=== PATIENT | male | born 1950 | race Caucasian/White ===

== ENCOUNTER 2017-12-08 11:14 | Outpatient (REF) | payer MEDICARE, SELFPAY ==
[2017-12-08 14:25] LABS: Hemoglobin A1C 10.3 % (4.5-6.2)
[2017-12-08 14:39] LABS: ALT 43 U/L (12-78); AST 19 U/L (15-37); Albumin 4.1 g/dL (3.4-5.0); Alkaline Phosphatase 66 U/L (46-116); Anion Gap 9.2 mmol/L (3-11); BUN 28 mg/dL (7-18); Bilirubin, Total 0.5 mg/dL (0.2-1.0); CO2 26.8 mmol/L (21.0-32.0); CREATININE 1.56 mg/dL (0.70-1.30); Chloride 104 mmol/L (98-107); Cholesterol 195 mg/dL (50-200); Estimated GFR 44.75 (mL/min/1.73m2); Glucose 242 mg/dL (70-100); HDL Cholesterol 48 mg/dL (40-60); LDL CHOLESTEROL 118 mg/dL (<100); Potassium 4.3 mmol/L (3.5-5.1); Sodium 140 mmol/L (136-145); Total Protein 7.4 g/dL (6.4-8.2); Triglyceride 205 mg/dL (30-150)
== END 2017-12-08 11:34 ==
LOC: NCHCN 11:14
PROVIDERS: PCP Family Medicine; Visit Provider Family Medicine
DX: E11.9 Type 2 diabetes mellitus without complications (principal); I10 Essential (primary) hypertension; E66.9 Obesity, unspecified
CPT/HCPCS: 80053; 80061; 83721; 83036

== ENCOUNTER 2018-01-19 11:45 | Outpatient (REF) | payer MEDICARE, SELFPAY ==
--- NOTE | 2018-01-19 10:15 | SKI_PTH ---
PATIENT: Avery Penny LOC: [facility] U#:[id number] AGE/SX: 67/M ROOM: RE01/19/[address]: Priscilla Robert : 1950 BED: DIS: 01/19/2018 SPEC #: [id number] RECD: 01/20/18 12:33 STATUS: YULI RENickie #: [id number] FREDI: 01/19/18 10:[address]: Priscilla Robert DEPT: Surgical Specimen RECD BY: Malia Frye Tissues: 1 - SKIN BIOPSY(SHAVE/PUNCH) Procedures: SKIN LEVEL 4 Comments: [id number]
== END 2018-01-19 12:05 ==
LOC: NCHCN 11:45
PROVIDERS: PCP Family Medicine; Visit Provider Family Medicine
DX: D23.5 Other benign neoplasm of skin of trunk (principal)
CPT/HCPCS: 88305

== ENCOUNTER 2020-06-13 08:35 | Outpatient (REF) | payer MEDICARE, SELFPAY ==
[2020-06-13 13:49] LABS: ALT 48 U/L (16-63); AST 22 U/L (15-37); Albumin 3.8 g/dL (3.4-5.0); Alkaline Phosphatase 73 U/L (46-116); Anion Gap 11.8 mmol/L (3-11); BUN 33 mg/dL (7-18); Bilirubin, Total 0.7 mg/dL (0.2-1.0); CO2 23.2 mmol/L (21.0-32.0); CREATININE 2.5 mg/dL (0.70-1.30); Calculated LDL 79 mg/dL (<100); Chloride 108 mmol/L (98-107); Cholesterol 138 mg/dL (<200); Estimated GFR 25.81 (mL/min/1.73m2); Glucose 145 mg/dL (74-106); HDL Cholesterol 46 mg/dL (40-60); Potassium 4.7 mmol/L (3.5-5.1); Sodium 143 mmol/L (136-145); Total Protein 7.2 g/dL (6.4-8.2); Triglyceride 66 mg/dL (<150)
[2020-06-13 14:19] LABS: Hemoglobin A1C 7.2 % (<5.7)
[2020-06-13 21:50] LABS: PSA, Screening 3.8 ng/mL (0.0-4.5)
== END 2020-06-13 08:36 | disposition home or self-care (01) ==
LOC: NCHCN 08:35
PROVIDERS: PCP Family Medicine; Visit Provider Family Medicine
DX: E78.5 Hyperlipidemia, unspecified (principal); I10 Essential (primary) hypertension; E11.9 Type 2 diabetes mellitus without complications; Z12.5 Encounter for screening for malignant neoplasm of prostate
CPT/HCPCS: 80053; 80061; 84153; 83036

== ENCOUNTER 2020-07-26 08:17 | Outpatient (REF) | payer MEDICARE, SELFPAY ==
[2020-07-26 13:39] LABS: Anion Gap 9.6 mmol/L (3-11); BUN 36 mg/dL (7-18); CO2 27.4 mmol/L (21.0-32.0); CREATININE 2.4 mg/dL (0.70-1.30); Calcium 8.8 mg/dL (8.5-10.1); Chloride 107 mmol/L (98-107); Estimated GFR 26.98 (mL/min/1.73m2); Glucose 144 mg/dL (74-106); Potassium 4.9 mmol/L (3.5-5.1); Sodium 144 mmol/L (136-145)
== END 2020-07-26 08:18 | disposition home or self-care (01) ==
LOC: NCHCN 08:17
PROVIDERS: PCP Family Medicine; Visit Provider Family Medicine
DX: I10 Essential (primary) hypertension (principal); N18.9 Chronic kidney disease, unspecified
CPT/HCPCS: 80048

== ENCOUNTER 2020-09-13 16:30 | Outpatient (REF) | payer MEDICARE, SELFPAY ==
[2020-09-13 14:17] LABS: Anion Gap 11.8 mmol/L (3-11); BUN 41 mg/dL (7-18); CO2 24.2 mmol/L (21.0-32.0); CREATININE 2.6 mg/dL (0.70-1.30); Calcium 9.2 mg/dL (8.5-10.1); Chloride 107 mmol/L (98-107); Glucose 179 mg/dL (74-106); PHOSPHORUS 3.3 mg/dL (2.6-4.7); Potassium 5.4 mmol/L (3.5-5.1); Sodium 143 mmol/L (136-145)
[2020-09-13 14:54] LABS: PROTEIN 50.6 mg/dL
[2020-09-13 14:56] LABS: COMMENT (LAB VIEW ONLY) 25.37 mg/dL; Prot/Crea Ur Ratio 1.99
[2020-09-16 09:34] LABS: Parathyroid Hormone,Intact 98 pg/mL (19-88)
== END 2020-09-13 16:31 | disposition home or self-care (01) ==
LOC: NCHCN 16:30
PROVIDERS: PCP Family Medicine; Visit Provider Family Medicine
DX: N18.9 Chronic kidney disease, unspecified (principal); I10 Essential (primary) hypertension
CPT/HCPCS: 80048; 82565; 83970; 84100; 84156

== ENCOUNTER 2021-08-20 10:43 | Outpatient (REF) | payer MEDICARE, BC, SELFPAY ==
[2021-08-20 14:36] LABS: HCT 35.1 % (40.0-50.0); HGB 11.2 g/dL (13.5-17.5); MCH 28.7 pg (27.0-33.0); MCHC 31.9 % (32.0-36.0); MCV 90 fL (80-95); MPV 11.2 fL (8.0-11.0); Platelet Count 167 10^3/uL (130-400); RDW 13.5 % (11.8-14.1); RDW-SD 44.6 fL
[2021-08-20 14:50] LABS: ALT 33 U/L (16-63); AST 16 U/L (15-37); Albumin 4.4 g/dL (3.4-5.0); Alkaline Phosphatase 77 U/L (46-116); Anion Gap 11.4 mmol/L (3-11); BUN 40 mg/dL (7-18); Bilirubin, Total 0.5 mg/dL (0.2-1.0); CO2 24.6 mmol/L (21.0-32.0); CREATININE 3.4 mg/dL (0.70-1.30); Calculated LDL 122 mg/dL (<100); Chloride 107 mmol/L (98-107); Cholesterol 198 mg/dL (<200); Glucose 179 mg/dL (74-106); HDL Cholesterol 42 mg/dL (40-60); Potassium 5.4 mmol/L (3.5-5.1); Sodium 143 mmol/L (136-145); Total Protein 7.7 g/dL (6.4-8.2); Triglyceride 171 mg/dL (<150)
[2021-08-20 14:56] LABS: Hemoglobin A1C 7.7 % (<5.7)
[2021-08-21 15:09] LABS: Vitamin D 25 Total 41.5 ng/mL (30-100)
== END 2021-08-20 10:44 | disposition home or self-care (01) ==
LOC: NCHCN 10:43
PROVIDERS: PCP Family Medicine; Visit Provider Family Medicine
DX: E11.9 Type 2 diabetes mellitus without complications (principal); N18.9 Chronic kidney disease, unspecified; I10 Essential (primary) hypertension; E66.8 Other obesity
CPT/HCPCS: 80053; 80061; 82306; 85027; 83036

== ENCOUNTER 2021-10-14 08:37 | Outpatient (REF) | payer MEDICARE, BC, SELFPAY ==
--- OUTSIDE RECORDS SUMMARY | 2021-10-14 08:47 | XMS_ITS | Encounter Summary ---
:1950 Author Organization [facility] Address [address] [place] [id number] Care Team Providers Name Role Phone Priscilla Robert MD Primary Care Provider Reason for Visit Reason Onset Date Comments Labs Only 07/30/2020 appointment Encounter Details Date Type Department Care Team Description 07/30/2020 Telephone [facility] Callie Mcclure La bs Only Nephrology - S RN (appointment) [place] [address] Social History Tobacco Use Types Packs/Day Years Used Date Never Smoker Smokeless Tobacco: Never Used Alcohol Use Standard Drinks/Week Comments No 0 (1 standard drink = 0.6 oz pure alcoho l) Sex Assigned at Date Recorded Not on file documented as of this encounter Functional Status Functional Status Response Date of Assessment Are you deaf or do you have serious difficulty hearing? No 12/07/2019 Are you blind or do you have serious difficulty seeing, No 12/07/2019 even when wearing glasses? Do you have serious difficulty walking or climbing No 12/07/2019 stairs? (5 years old or older) Do you have difficulty dressing or bathing? (5 years old No 12/07/2019 or older) Because of a physical, mental, or emotional condition, do No 12/07/2019 you have difficulty doing errands alone such as visiting a doctor's office or shopping? (15 years old or older) Cognitive Status Response Date of Assessment Because of a physical, mental, or emotional condition, do No 12/07/2019 you have serious difficulty concentrating, remembering, or making decisions? (5 years old or older) documented as of this encounter Miscellaneous Notes Telephone Encounter - June Bell RN - 07/30/2020 1042 EDT LMOM detailed on both home and cell phones, to get labs drawn. To call back will any questions elephone Encounter - Callie Mcclure RN - 07/30/2020 0843 EDT ----- Message from Lacy Miller MD sent at 07/30/2020 7:53 EDT ----- Worsening renal failure. A repeat BMP has been ordered - he is to complete this as soon as possible. He is yet to be seen by Nephrology. Mac documented in this encounter Plan of Treatment Upcoming Encounters Date Type Specialty Care Team Description 10/27/2021 Telemedicine Nephrology Rebekah Miller MD 1 [facility], Level 2 [place], [place] [phone] (Wo rk) documented as of this encounter Visit Diagnoses Not on filedocumented in this encounter Care Teams Specialty Molder Relationship Specialty Start Date End Date Priscilla Robert MD PCP - General 11/30/[address] [place] [phone] documented as of this encounter
--- OUTSIDE RECORDS SUMMARY | 2021-10-14 08:47 | XMS_ITS | Encounter Summary ---
:1950 Author Organization [facility] Address [address] [place] [address] Care Team Providers Name Role Phone Priscilla Robert MD Primary Care Provider Reason for Visit Reason Onset Date Comments Other 08/27/2021 Encounter Details Date Type Department Care Team Description 08/27/2021 Telephone [facility] Kristina Miller MD Other Nephrology - S Prosp ect [address], [address] [place], [place] [phone] [place] [phone] (Wo rk) Social History Tobacco Use Types Packs/Day Years [...] this encounter Miscellaneous Notes Telephone Encounter - Callie Mcclure RN - 08/28/2021 1307 EDT It would appear that he had a missed appointment in February 2021. Infrequent lab testing as observed in the EMR - Creatinine was 2.5 in May 2020 and had jumped to 3.4 on 08/21/2021. It was 1.6 in November 2017. This is consistent with progressive CKD. He is listed on Lisinopril 20 mg/d. Recommendation - book to see me this month on a Wednesday or am slot. Thank you. Bautista Miller elephone Encounter - Dania Forte RN - 08/27/2021 1338 EDT Message routed to Dr. Miller for review and advice. elephone Encounter - Harriet De Leon - 08/27/2021 1329 EDT Avery was told by his PCP that his kidney function is declining, was told to be in touch with our office about a f/u with Dr. Miller - next available appointment is mid-November, please advise? Sees Dr. Robert at [facility]. [phone] - I called for records. documented in this encounter Plan of Treatment Upcoming Encounters Date Type Specialty Care Team Description 10/27/2021 Telemedicine Nephrology Rebekah Miller MD 1 [facility], Level 2 [place], [place] [phone] (Wo rk) documented as of this encounter Visit Diagnoses Not on filedocumented in this encounter Additional Health Concerns Infection Onset Date Last Indicated Resolved Time MRSAComment: [facility] Inf Import 01/30/2021 01/30/2021 documented as of this encounter Care Teams Buggy Ladle Tender Relationship Specialty Start Date End Date Priscilla Robert MD PCP - General 11/30/19 [place] [phone] documented as of this encounter
--- OUTSIDE RECORDS SUMMARY | 2021-10-14 08:47 | XMS_ITS | Encounter Summary ---
:1950 Author Organization [facility] Address [address] [place] [address] Care Team Providers Name Role Phone Priscilla Robert MD Primary Care Provider Reason for Referral Laboratory Services (Routine/Next Available) - New Request Specialty Diagnoses / Procedures Referred By Contact Refer red To Contact Diagnoses Benign prostatic hyperplasia with urinary frequency Nacho Barrow MD Procedures PSA TOTAL, DIAGNOSTIC [address] [facility] [address] [place] [address] Referral ID Status Reason Start Date Expiration Date Visits V isits Requested Authorized [id number] New Request 04/29/2021 1 1 Reason for Visit Reason Onset Date Comments Pre-visit Orders 04/29/2021 Encounter Details Date Type Department Care Team Description 04/29/2021 Orders Only [facility] Nacho Barrow prostatic Urology - Mikhail Davalos MD hyperplasia with Office Building [address] [place] urinary [facility] [address] [facility] (Primary Dx) [address] [place], [place] [phone] [place] [address] [place] [address] (Wo rk) Social History Tobacco Use Types [...] or older) documented as of this encounter Plan of Treatment Upcoming Encounters Date Type Specialty Care Team Description 10/27/2021 Telemedicine Nephrology Rebekah Miller MD 1 [facility], Level 2 [place], [place] [phone] (Wo rk) Scheduled Orders Name Type Priority Associated Diagnoses Order S chedule PSA TOTAL, DIAGNOSTIC Lab Routine Benign prostatic Ex pected: 04/30/2021 hyperplasia with urinary (Ap proximate), Expires: frequency 04/29/2022 documented as of this encounter Visit Diagnoses Diagnosis Benign prostatic hyperplasia with urinar y frequency - Primary documented in this encounter Additional Health Concerns Infection Onset Date Last Indicated Resolved Time MRSAComment: [facility] [place] Import 01/30/2021 01/30/2021 documented as of this encounter Care Teams Assignment Manager Relationship Specialty Start Date End Date Priscilla Robert MD PCP - General 11/30/19 [address] [place] [phone] documented as of this encounter
--- OUTSIDE RECORDS SUMMARY | 2021-10-14 08:47 | XMS_ITS | Encounter Summary ---
:1950 Author Organization [facility] Address [address] [place] [address] Care Team Providers Name Role Phone Priscilla Robert MD Primary Care Provider Reason for Visit Reason Onset Date Comments Follow-up 08/28/2021 Encounter Details Date Type Department Care Team Description 08/28/2021 Telephone [facility] Kristina Miller MD Follow-up Nephrology - S Prosp ect [address], [address] [place], [place] [phone] [place] [phone] (Wo rk) Social History Tobacco Use [...] this encounter Miscellaneous Notes Telephone Encounter - Lacy Miller MD - 08/28/2021 1250 EDT It would appear that he had [...] month on a Wednesday or am slot. documented in this encounter Plan of Treatment Upcoming Encounters Date Type Specialty Care Team Description 10/27/2021 Telemedicine Nephrology Rebekah Miller MD 1 [facility], Level [address] [place], [place] [phone] (Wo rk) documented as of this encounter Visit Diagnoses Not on filedocumented in this encounter Additional Health Concerns Infection Onset Date Last Indicated Resolved Time MRSAComment: [facility] Inf Import 01/30/2021 01/30/2021 documented as of this encounter Care Teams Car Carder Relationship Specialty Start Date End Date Priscilla Robert MD PCP - General 11/30/19 [address] [place] [address] documented as of this encounter
--- OUTSIDE RECORDS SUMMARY | 2021-10-14 08:47 | XMS_ITS | Encounter Summary ---
:1950 Author Organization [facility] Address [address] [place] [address] Care Team Providers Name Role Phone Priscilla Robert MD Primary Care Provider Reason for Visit Reason Comments Follow-up 1 year PSA Encounter Details Date Type Department Care Team Description 05/20/2021 Office Visit [facility] Nacho Barrow prostatic hyperplasia with urinary frequency (Primary Dx); Urology - Medical MD Anoop Erectile dysfunction, unspecified erecti le dysfunction type; Office Building [address] [place] [address] Special screening for malign ant neoplasm of prostate [address] [facility] [place] [address] [facility], [place], [place] [address] [place] [address], [place] [address] (Wo rk) Social History Tobacco Use Types Packs/Day Years Used Date Never Smoker Smokeless Tobacco: Never Used Tobacco Cessation: Counseling Given: Yes Alcohol Use Standard Drinks/Week Comments No 0 [...] or older) documented as of this encounter Ordered Prescriptions Prescription Sig Dispensed Refills Start Date End Date sildenafil citrate Take 1 Tablet by 30 Tablet 11 05/20/2021 (VIAGRA) 100 mg tablet mouth as needed for Erectile Dysfunction. TAMSulosin (FLOMAX) 0.4 Take 1 capsule by 90 capsule 5 05/20 mg capsule mouth daily. documented in this encounter Progress Notes Nacho Barrow MD - 05/20/2021 1000 EST Images from the original note were not included. Subjective: Patient ID: Avery Padilla is an [address] Priscilla Robert has requested that I see Avery Padilla in consultation for Follow-up (1 yearPSA). HPI He is here today 15 months following his penile implant. He has had his third revision with a 24plus a 0.5 cm implant . This has been effective . He has been quite effective. He has had no issues. He has BPH and the Flomax is effective. He has an AUA ss of 2/35. Patient Active Problem List Diagnosis ??? Erectile dysfunction Past Medical History: Diagnosis Date ??? Diabetes mellitus (HCC) 11/17/19 on oral meds ??? Exercise involving walking ??? History of general anesthesia 11/16/19 no issues ??? Hypertension 11/17/19 Treated with meds, good results ??? Patient unable to exercise 11/17/19 walks less due to COVID Past Surgical History: Procedure Laterality Date ??? OTHER SURGICAL HISTORY 2002, 2008 IPP Insertion No family history on file. Social Social History Tobacco Use ??? Smoking status: Never Smoker ??? Smokeless tobacco: Never Used Substance Use Topics ??? Alcohol use: No ??? Drug use: Not on file Current Outpatient Medications on File Prior to Visit Medication Sig Dispense Refill ??? acetaminophen (TYLENOL) 325 mg tablet Take 2 Tabs by mouth every 4 hours as needed for Pain. ??? amlodipine (NORVASC) 5 mg tablet Take 10 mg by mouth daily. Reported on 07/06/2016 ??? aspirin chewable 81 mg tablet Take 1 Tab by mouth daily. Takes in am 1 Tab 0 ??? atorvastatin (LIPITOR) 10 mg tablet Take 10 mg by mouth daily. ??? clotrimazole-betamethasone (LOTRISONE) cream Apply to affected area twice daily as needed. (Patient not taking: Reported on 12/07/2019) 1 Tube 0 ??? docusate sodium (COLACE) 100 mg capsule Take 1 Cap by mouth 2 times daily as needed for Constipation. ??? glipiZIDE (GLUCOTROL) 10 mg tablet Take 10 mg by mouth daily. ??? metFORMIN (GLUCOPHAGE) 1,000 mg tablet Take 1,000 mg by mouth 2 times daily. ??? metoprolol TARtrate (LOPRESSOR) 25 mg tablet Take 25 mg by mouth 2 times daily. ??? sildenafil citrate (VIAGRA) 100 mg tablet Take 1 Tab by mouth as needed for Erectile Dysfunction. 30 Tab 11 ??? SITagliptin (JANUVIA) 100 mg tablet Take 25 mg by mouth daily. Take in am ??? TAMSulosin (FLOMAX) 0.4 mg capsule TAKE ONE CAPSULE BY MOUTH EVERY DAY 90 capsule 3 No current facility-administered medications on file prior to visit. Allergies Allergen Reactions ??? Demerol [Meperidine] Nausea And Vomiting ROS - Constitutional: Negative. Respiratory: Negative. Cardiovascular: Negative. Objective: There were no vitals taken for this visit. Physical Exam Constitutional: Appearance: He is well-developed. HENT: Head: Normocephalic and atraumatic. Right Ear: External ear normal. Left Ear: External ear normal. Nose: Nose normal. Neck: Trachea: No tracheal deviation. Pulmonary: Effort: Pulmonary effort is normal. Abdominal: Palpations: Abdomen is soft. Genitourinary: Penis: Normal. Skin: General: Skin is warm and dry. Neurological: Mental Status: He is alert and oriented to person, place, and time. Psychiatric: Behavior: Behavior normal. Thought Content: Thought content normal. : nml tone , 40 gram benign No visits with results within 1 Day(s) from this visit. Latest known visit with results is: Lab Requisition on 09/13/2020 Component Date Value Ref Range Status ??? Intact PTH 09/13/2020 98 (A) 19 - 88 pg/mL Final PSA: Lab Results Component Value Date PSA 3.8 06/13/2020 PSA 1.8 02/15/2013 PSA Henny Roman : 05/20 : 2.6 BMP: Lab Results Component Value Date NA 139 12/08/2019 K 4.4 12/08/2019 CL 103 12/08/2019 CO2 24 12/08/2019 BUN 38 (H) 12/08/2019 CREATININE 2.15 (H) 12/08/2019 Assessment / Plan: 1. Benign prostatic hyperplasia with urinary frequency 2. Erectile dysfunction, unspecified erectile dysfunction type He has done well with the implant. He will be seen once a year . He will continue the Flomax . F/U PSA in 1 year . No orders of the defined types were placed in this encounter. Nacho Barrow MD documented in this encounter Plan of Treatment Upcoming Encounters Date Type Specialty Care Team Description 10/27/2021 Telemedicine Nephrology Rebekah Miller MD 1 [facility], Level [address] [place], [place] [phone] (Wo rk) Scheduled Orders Name Type Priority Associated Diagnoses Order S chedule PSA TOTAL, DIAGNOSTIC Lab Routine Special screening f or Expected: 06/18/2022 malignant neoplasm of (Appro ximate), Expires: prostate 05/20/2023 documented as of this encounter Visit Diagnoses Diagnosis Benign prostatic hyperplasia with urinar y frequency - Primary Erectile dysfunction, unspecified erecti le dysfunction type Special screening for malignant neoplasm of prostate documented in this encounter Discontinued Medications Medication Sig Discontinue Reason Start Date End Date TAMSulosin (FLOMAX) 0.4 TAKE ONE CAPSULE BY Reorder 10/04/2020 05/20/2021 mg capsule MOUTH EVERY DAY sildenafil citrate Take 1 Tab by mouth Reorder 10/24/2019 (VIAGRA) 100 mg tablet as needed for Erectile Dysfunction. documented as of this encounter Additional Health Concerns Infection Onset Date Last Indicated Resolved Time MRSAComment: [facility] Inf Import 01/30/2021 01/30/2021 documented as of this encounter Care Teams Train Crew Member Relationship Specialty Start Date End Date Priscilla Robert MD PCP - General 11/30/19 [place] [address] documented as of this encounter
--- OUTSIDE RECORDS SUMMARY | 2021-10-14 08:47 | XMS_ITS | Encounter Summary ---
:1950 Author Organization [facility] Address [address] [place] [address] Care Team Providers Name Role Phone Priscilla Robert MD Primary Care Provider Reason for Visit Reason Onset Date Comments Medications Refill 09/03/2020 Encounter Details Date Type Department Care Team Description 09/03/2020 Refill [facility] Kristina Miller MD Medications Refill Nephrology - S Prosp ect 1 [facility] 1 [facility], Level 2 [place], [place] [address] [place] [address] [phone] (Wo rk) Social History Tobacco Use [...] 10/27/2021 Telemedicine Nephrology Rebekah Miller MD 1 [facility], Level [address] [place], [place] [phone] (Wo rk) documented as of this encounter Visit Diagnoses Not on filedocumented in this encounter Care Teams Resource Director Relationship Specialty Start Date End Date Priscilla Robert MD PCP - General 11/30/[address] [place] [phone] documented as of this encounter
--- OUTSIDE RECORDS SUMMARY | 2021-10-14 08:47 | XMS_ITS | Encounter Summary ---
:1950 Author Organization [facility] Address [address] [place] [address] Care Team Providers Name Role Phone Priscilla Robert MD Primary Care Provider Reason for Visit Reason Onset Date Comments Appointment Related 03/21/2021 Encounter Details Date Type Department Care Team Description 03/21/2021 Telephone [facility] Kristina Miller MD Appointment Related Nephrology - S Prosp ect 1 [facility] 1 [place] [address] Rehab, [place] [address] (Wo rk) Social History Tobacco Use [...] this encounter Miscellaneous Notes Telephone Encounter - Dayan Oliver - 03/21/2021 1122 EST PAS Message: patient called to cancel appointment with Lacy Miller MD on 03/24 at 10:40 due to no reason given. Patient would like a call back to reschedule? He'll call documented in this encounter Plan of Treatment Upcoming Encounters Date Type Specialty Care Team Description 10/27/2021 Telemedicine Nephrology Rebekah Miller MD 1 [facility], Level [address] [place], [place] [phone] (Wo rk) documented as of this encounter Visit Diagnoses Not on filedocumented in this encounter Additional Health Concerns Infection Onset Date Last Indicated Resolved Time MRSAComment: [facility] [place] Inf Import 01/30/2021 01/30/2021 documented as of this encounter Care Teams Feed House Supervisor Relationship Specialty Start Date End Date Priscilla Robert MD PCP - General 11/30/19 [address] [place] [address] documented as of this encounter
--- OUTSIDE RECORDS SUMMARY | 2021-10-14 08:47 | XMS_ITS | Encounter Summary ---
:1950 Author Organization [facility] Address [address] [place] [address] Care Team Providers Name Role Phone Priscilla Robert MD Primary Care Provider Reason for Visit Reason Comments Chronic Kidney Disease CKD - New patient visit for CKD against a background for DM II and HTN, morbid obesity (268 lb) with BMI of 36) and listed on Januvia, Tamsulosin and Amlo dipine. Creatinine was 2.5 mg/dL (eGFR=25.81) from 06/13/2020. Hypertension Diabetes Mellitus Consult (Routine) - Authorization Not Required Specialty Diagnoses / Procedures Referred By Contact Refer red To Contact Nephrology Diagnoses Chronic kidney disease, unspecified Priscilla Robert MD Nephrology Clinic [address] [place] [phone] [place] [address] Fax: Referral ID Status Reason Start Expiration Visits Visits Date Date Requested Authorized [id number] Authorization Not 1 1 Required Encounter Details Date Type Department Care Team Description 09/02/2020 Telemedicine [facility] Lacy Miller, CKD (chronic kidney Nephrology - S MD disease), stage IV [address] ([facility]) (Primary 1 [facility] Dx) [place] [address] Rehab, [place] [phone] (Wo rk) Social History Tobacco Use Types Packs/Day Years Used Date Never Smoker Smokeless Tobacco: Never Used Alcohol Use Standard Drinks/Week Comments No 0 (1 standard drink = 0.6 oz pure alcoho l) Sex Assigned at Date Recorded Not on file documented as of this encounter Last Filed Vital Signs Vital Sign Reading Time Taken Comments Blood Pressure 145/84 09/02/2020 1113 EDT Pulse - - Temperature - - Respiratory Rate - - Oxygen Saturation - - Inhaled Oxygen Concentration - - Weight 122.5 kg (270 lb) 09/02/2020 1113 EDT Height 182.9 cm (6') 09/02/2020 1113 EDT Body Mass Index 36.62 09/02/2020 1113 EDT documented in this encounter Functional Status Functional Status Response [...] or older) documented as of this encounter Patient Instructions Patient InstructionsLacy Miller MD - 09/02/2020 11:20 EDT BMP DIANN and then every 2 months thereafter. Phosphorus and PTH ordered. Urine protein creatinine ratio ordered. documented in this encounter Progress Notes Lacy Miller MD - 09/02/2020 1120 EDT This visit was conducted by telephone with consent given by the patients. During the visit, the patient's symptoms, weight, BP, medication usage and recent laboratory test results were reviewed. The telephone call lasted 22 minutes. Home Phone Work Phone NEW NEPHROLOGY CONSULT OFFICE VISIT NOTE SUBJECTIVE New patient visit for CKD against a background for DM II and HTN, morbid obesity (268 lb) with BMI of 36) and listed on Januvia, Metformin Tamsulosin and Amlodipine. Creatinine was 2.5 mg/dL (eGFR=25.81) from 06/13/2020. 09/02/2020 Chief Complaint Patient presents with ??? Chronic Kidney Disease CKD - New patient visit for CKD against a background for DM II and HTN, morbid obesity (268 lb) with BMI of 36) and listed on Januvia, Tamsulosin and Amlodipine. Creatinine was 2.5 mg/dL (eGFR=25.81) from 06/13/2020. ??? Hypertension ??? Diabetes Mellitus HPI As above. My kidney function decreased over time. They cut my Januvia from 100 to 25 mg daily about 2 weeks.I feel great. No urinary symptoms. No leg swelling. Breathing is fine. No NSAIDs. Blood pressure - 145/84 today. Patient Active Problem List Diagnosis ??? Erectile dysfunction Past Medical History: Diagnosis Date ??? Diabetes mellitus ([facility]) 11/17/19 on oral meds ??? Exercise involving walking ??? History of general anesthesia 11/16/19 no issues ??? Hypertension 11/17/19 Treated with meds, good results ??? Patient unable to exercise 11/17/19 walks less due to COVID Past Surgical History: Procedure Laterality Date ??? OTHER SURGICAL HISTORY 2002, 2008 IPP Insertion Current Outpatient Medications Medication ??? acetaminophen (TYLENOL) 325 mg tablet ??? amlodipine (NORVASC) 5 mg tablet ??? aspirin chewable 81 mg tablet ??? atorvastatin (LIPITOR) 10 mg tablet ??? clotrimazole-betamethasone (LOTRISONE) cream ??? docusate sodium (COLACE) 100 mg capsule ??? glipiZIDE (GLUCOTROL) 10 mg tablet ??? metFORMIN (GLUCOPHAGE) 1,000 mg tablet ??? sildenafil citrate (VIAGRA) 100 mg tablet ??? SITagliptin (JANUVIA) 100 mg tablet ??? tamsulosin (FLOMAX) 0.4 mg capsule No current facility-administered medications for this visit. Allergies Allergen Reactions ??? Demerol [Meperidine] Nausea And Vomiting Social History Tobacco Use ??? Smoking status: Never Smoker ??? Smokeless tobacco: Never Used Substance Use Topics ??? Alcohol use: No ??? Drug use: Not on file No family history on file. REVIEW OF SYSTEMS A ten point ROS was performed and was negative except for pertinent positives in the HPI. There were no vitals taken for this visit. Phone visit. Lacy Miller MD 09/02/2020 11:00 Lab Results Component Value Date K 4.4 12/08/2019 NA 139 12/08/2019 CL 103 12/08/2019 CO2 24 12/08/2019 CREATININE 2.15 (H) 12/08/2019 CALCGFR 31 (L) 12/08/2019 SERGLU 240 (H) 12/08/2019 Lab Results Component Value Date WBC 7.27 12/08/2019 WBC 8.56 03/27/2009 RBC 3.74 (L) 12/08/2019 RBC 5.40 03/27/2009 HGB 11.0 (L) 12/08/2019 HGB 16.8 03/27/2009 HCT 32.5 (L) 12/08/2019 HCT 48.5 03/27/2009 MCV 87 12/08/2019 MCV 90 03/27/2009 MCH 29.4 12/08/2019 MCH 31.0 03/27/2009 MCHC 33.8 12/08/2019 MCHC 34.6 03/27/2009 RDWCV 12.7 12/08/2019 RDWCV 12.9 03/27/2009 RDWSD 40.0 12/08/2019 PLT 139 (L) 12/08/2019 PLT 175 03/27/2009 Lab Results Component Value Date WBCU less than 1 02/15/2013 RBCU 1 to 5 02/15/2013 SQUAEPIU Few (A) 02/15/2013 RENEPIU None seen 02/15/2013 BACTERIA None seen 02/15/2013 CRYST None seen 02/15/2013 LABCAST None seen 02/15/2013 UACOMMENT Microscopic results 02/15/2013 Lab Results Component Value Date COLOR YELLOW 10/19/2017 COLOR YELLOW 05/27/2015 CLARITYU Clear 10/19/2017 CLARITYU Clear 05/27/2015 KETONES Neg 10/19/2017 KETONES Neg 05/27/2015 UROBILINOGEN 0.2 10/19/2017 UROBILINOGEN 0.2 05/27/2015 NITRITE Neg 10/19/2017 NITRITE Neg 05/27/2015 LEUKESTER Neg 10/19/2017 LEUKESTER Neg 05/27/2015 ASSESSMENT & PLAN CKD - New patient visit for CKD against a background for DM II and HTN, morbid obesity (268 lb) withBMI of 36) and listed on Januvia, Metformin, Tamsulosin and Amlodipine. Creatinine was 2.5 mg/dL (eGFR=25.81) from 06/13/2020; it was 2.15 mg/dL in November 2019. BMP DIANN and then every 2 months thereafter. DM II - A1c was 7.2% in May 2020. He is listed as being on Metformin and he would need to revisit this medication with the PCP, given the low eGFR. Hypertension - He is on Tamsulosin and Amlodipine. Follow up with PCP. Metabolic bone disease - To get phosphorus and PTH tests. Hematology - Hemoglobin was 11 g/dL in November 2019. ADDENDUM 09/03/2020: Creatinine was 1.56 mg/dL in November 2017. documented in this encounter Plan of Treatment Upcoming Encounters Date Type Specialty Care Team Description 10/27/2021 Telemedicine Nephrology Rebekah Miller MD 1 [facility], [address] [place], [place] [phone] (Wo rk) documented as of this encounter Visit Diagnoses Diagnosis CKD (chronic kidney disease), stage IV ( [facility]) (HCC) - Primary Chronic kidney disease, Stage IV (severe ) documented in this encounter Historical Medications This list may reflect changes made after this encounter. Medication Sig Dispensed Refills Start Date End Date metoprolol TARtrate Take 25 mg by mouth 2 0 (LOPRESSOR) 25 mg tablet times daily. added in this encounter Care Teams Principle Industrial Hygienist Relationship Specialty Start Date End Date Priscilla Robert MD PCP - General 11/30/19 [address] [place] [phone] documented as of this encounter
--- OUTSIDE RECORDS SUMMARY | 2021-10-14 08:47 | XMS_ITS | Encounter Summary ---
:1950 Author Organization [facility] Address [address] [place] [address] Care Team Providers Name Role Phone Priscilla Robert MD Primary Care Provider Reason for Visit Reason Onset Date Comments Labs Only 10/06/2021 Encounter Details Date Type Department Care Team Description 10/06/2021 Telephone [facility] Nephrology Salazar Forte, VIV Labs Only - [address] [phone] Social History Tobacco Use Types Packs/Day Years [...] this encounter Miscellaneous Notes Telephone Encounter - Dania Forte RN - 10/06/2021 9414 EDT ----- Message from Lacy Miller MD sent at 10/06/2021 14:19 EDT ----- He is to get urgent QUIANA work up to include BMP, LFT, phosphorus, PTH, CBC, urinalysis, PT-INR, UPC ratio, BRIDGER, C3 and c4 complements, ANCA, UPEP, SPEP, acute hepatitis profile and renal sonogram. I have ordered all these tests and I have also ordered a renal sonogram and he stated that he will be completing these tests at a hospital in [place], [place]. Please help. Thank you. Mac documented in this encounter Plan of Treatment Upcoming Encounters Date Type Specialty Care Team Description 10/27/2021 Telemedicine Nephrology Rebekah Miller MD 1 [facility], Level [address] [place] [phone] (Wo rk) documented as of this encounter Visit Diagnoses Not on filedocumented in this encounter Additional Health Concerns Infection Onset Date Last Indicated [place]olved [place] [facility] [place] 01/30/2021 01/30/2021 documented as of this encounter Care Teams Paving Bed Maker Relationship Specialty Start Date End Date Priscilla Robert MD PCP - General 11/30/[address] [place] [phone] documented as of this encounter
--- OUTSIDE RECORDS SUMMARY | 2021-10-14 08:47 | XMS_ITS | Encounter Summary ---
:1950 Author Organization [facility] Address [address] [place] [address] Care Team Providers Name Role Phone Priscilla Robert MD Primary Care Provider Encounter Details Date Type Department Care Team Description 08/28/2021 Abstract [facility] Kristina Miller MD Nephrology - S Prosp ect [address] [place], [place] [phone] [place] [phone] (Wo rk) Social History Tobacco Use Types [...] 10/27/2021 Telemedicine Nephrology Rebekah Miller MD 1 [facility], Level [address] [place], [place] [phone] (Wo rk) documented as of this encounter Procedures Procedure Name Priority Date/Time Associated Diagnosis Comme nts VITAMIN D (25,[place]) Routine 08/21/2021 Results fo r this procedure are i n the results section . COMPLETE BLOOD COUNT Routine 08/21/2021 Results for this procedure are i n the results section . HEMOGLOBIN A1C Routine 08/21/2021 Results for t his procedure are i n the results section . COMPREHENSIVE METABOLIC Routine 08/21/2021 Resu lts for this PANEL (CMP) procedure are i n the results section . documented in this encounter Results COMPLETE BLOOD COUNT (08/21/2021) Pathologist Sig nature HCT, External 35.1 [facility] MCH, External 28.7 [facility] MCV, External 90 [facility] MCHC, External 31.9 [facility] Hemoglobin, External 11.2 [facility] WBC, External 6.50 [facility] RBC, External 3.90 [facility] PLT, External 167 [facility] RDW-CV, External 13.5 [facility] Specimen Blood - Venous blood (substance) Performing Organization Address City/State/[facility] Code Phon e Number [facility] COMPREHENSIVE METABOLIC PANEL (CMP) (08/21/2021) Pathologist Sig nature GFR, Calculated, 18 [facility] Glucose, Serum, 179 [facility] Albumin, External 4.4 [facility] Total Alkaline 77 [facility] Phosphatase, [facility] AB ALT, External 33 [facility] AST, External 16 [facility] BUN, External 40 [facility] Calculated Calcium, [facility] Calcium, External 9.0 [facility] Chloride, External 107 [facility] CO2, External 24.6 [facility] Creatinine, External 3.4 [facility] Fasting?, External [facility] Potassium, External 5.4 [facility] Sodium, External 143 [facility] Total Protein, External 7.7 [facility] Bilirubin, Total, 0.5 [facility] Specimen Blood - Venous blood (substance) Performing Organization Address City/[facility]/ZIP Code Phon e Number [facility] HEMOGLOBIN A1C (08/21/2021) Pathologist Sig nature Hemoglobin A1C, 7.7 [facility] Est Avg Glucose, [facility] Specimen Blood - Venous blood (substance) Performing Organization Address [facility]/ZIP Code Phon e Number [facility] VITAMIN D (25,[place]) (08/21/2021) Pathologist Sig nature 25OH Vitamin D Tot, 41.5 [facility] Specimen Blood - Venous blood (substance) Performing Organization Address City/[facility]/ZIP [facility] Phon e Number [facility] documented in this encounter Visit Diagnoses Not on filedocumented in this encounter Historical Medications This list may reflect changes made after this encounter. Medication Sig Dispensed Refills Start Date End Date lisinopriL (PRINIVIL) 20 Take 20 mg by mouth 0 mg tablet daily. added in this encounter Additional Health Concerns Infection Onset Date Last Indicated Resolved Time MRSAComment: [facility] [place] Inf Import 01/30/2021 01/30/2021 documented as of this encounter Care Teams Pulmonary Specialist Relationship Specialty Start Date End Date Priscilla Robert MD PCP - General 11/30/19 [address] [place] [phone] documented as of this encounter
--- OUTSIDE RECORDS SUMMARY | 2021-10-14 08:47 | XMS_ITS | Encounter Summary ---
:1950 Author Organization [facility] Address [address] [place] [address] Care Team Providers Name Role Phone Priscilla Robert MD Primary Care Provider Encounter Details Date Type Department Care Team Description 07/30/2020 Orders Only [place] Lacy Miller Acu te renal failure, Nephrology - S unspecified acute [place] 1 [facility] renal failure type 1 [facility] ([facility]) (Primary Dx) [place] [address] Rehab, [place] [phone] (Wo rk) Social History Tobacco [...] 10/27/2021 Telemedicine Nephrology Rebekah Miller MD 1 [facility], Level [address] [place] [phone] (Wo rk) documented as of this encounter Visit Diagnoses Diagnosis Acute renal failure, unspecified acute r enal failure type (HCC-CMS) (HCC) - Primary documented in this encounter Care Teams Smoke Control Supervisor Relationship Specialty Start Date End Date Priscilla Robert MD PCP - General 11/30/[address] [place] [phone] documented as of this encounter
--- OUTSIDE RECORDS SUMMARY | 2021-10-14 08:47 | XMS_ITS | Encounter Summary ---
:1950 Author Organization [facility] Address [address] [place] [address] Care Team Providers Name Role Phone Priscilla Robert MD Primary Care Provider Reason for Visit Reason Comments Other Encounter Details Date Type Department Care Team Description 10/04/2020 Refill [facility] Urology - [place] Nacho wang MD Other Medical Office [address], E [facility], [address] [place], [place] [phone] [place] [phone] (Wo rk) Social History Tobacco Use [...] Sig Dispensed Refills Start Date End Date TAMSulosin (FLOMAX) 0.4 TAKE ONE CAPSULE BY 90 capsule 3 11/202005/20/2021 mg capsule MOUTH EVERY DAY documented in this encounter Plan of Treatment Upcoming Encounters Date Type Specialty Care Team Description 10/27/2021 Telemedicine Nephrology Rebekah Miller MD 1 [facility], Level 2 [place], [place] [phone] (Wo rk) documented as of this encounter Visit Diagnoses Not on filedocumented in this encounter Discontinued Medications Medication Sig Discontinue Reason Start Date End Date tamsulosin (FLOMAX) 0.4 Take 1 Cap by mouth 10/24/2019 10/04/2020 mg capsule daily. documented as of this encounter Care Teams Banker Mason Relationship Specialty Start Date End Date Priscilla Robert MD PCP - General 11/30/19 [address] [place] [phone] documented as of this encounter
--- OUTSIDE RECORDS SUMMARY | 2021-10-14 08:47 | XMS_ITS | Encounter Summary ---
:1950 Author Organization [facility] Address [address] [place] [address] Care Team Providers Name Role Phone Priscilla Robert MD Primary Care Provider Reason for Referral Radiology Services (Routine/Next Available) - New Request Specialty Diagnoses / Procedures Referred By Contact Refer red To Contact Diagnoses Acute renal failure, unspecified acute renal failure type (HCC-CMS) ([facility]) Lacy Miller MD Procedures US RENAL/BLADDER COMPLETE [address] [phone] Referral ID Status Reason Start Date Expiration Date Visits V isits Requested Authorized [id number] New Request 10/06/2021 1 1 aboratory Services (Routine/Next Available) - New Request Specialty Diagnoses / Procedures Referred By Contact Refer red To Contact Diagnoses Acute renal failure, unspecified acute renal failure type ([facility]-CMS) [facility] Procedures PROTIME [address] [phone] Referral ID Status Reason Start Date Expiration Date Visits V isits Requested Authorized [id number] New Request 10/06/2021 1 1 aboratory Services (Routine/Next Available) - New Request Specialty Diagnoses / Procedures Referred By Contact Refer red To Contact Diagnoses Acute renal failure, unspecified acute renal failure type (HCC-CMS) ([facility]) Lacy Miller MD Procedures ANCA, IFA 1 [facility], [place] [phone] Referral ID Status Reason Start Date Expiration Date Visits V isits Requested Authorized [id number] New Request 10/06/2021 1 1 aboratory Services (Routine/Next Available) - New Request Specialty Diagnoses / Procedures Referred By Contact Refer red To Contact Diagnoses Acute renal failure, unspecified acute renal failure type (HCC-CMS) ([facility]) Lacy Miller MD Procedures ANTI NUCLEAR AB (BRIDGER), IFA [address] [phone] Referral ID Status Reason Start Date Expiration Date Visits V isits Requested Authorized [id number] New Request 10/06/2021 1 1 aboratory Services (Routine/Next Available) - New Request Specialty Diagnoses / Procedures Referred By Contact Refer red To Contact Diagnoses Acute renal failure, unspecified acute renal failure type (HCC-CMS) ([facility]) Lacy Miller MD Procedures C4 COMPLEMENT [address] [address] Referral ID Status Reason Start Date Expiration Date Visits V isits Requested Authorized [id number] New Request 10/06/2021 1 1 aboratory Services (Routine/Next Available) - New Request Specialty Diagnoses / Procedures Referred By Contact Refer red To Contact Diagnoses Acute renal failure, unspecified acute renal failure type (HCC-CMS) [facility] Procedures C3 COMPLEMENT [address] [phone] Referral ID Status Reason Start Date Expiration Date Visits V isits Requested Authorized [id number] New Request 10/06/2021 1 1 aboratory Services (Routine/Next Available) - New Request Specialty Diagnoses / Procedures Referred By Contact Refer red To Contact Diagnoses Acute renal failure, unspecified acute renal failure type (HCC-CMS) ([facility]) Lacy Miller MD Procedures SPEP, INCLUDES QUANTITATION OF MONOCLONAL SPIKE [address] [phone] Referral ID Status Reason Start Date Expiration Date Visits V isits Requested Authorized [id number] New Request 10/06/2021 1 1 aboratory Services (Routine/Next Available) - New Request Specialty Diagnoses / Procedures Referred By Contact Refer red To Contact Diagnoses Acute renal failure, unspecified acute renal failure type (HCC-CMS) ([facility]) Lacy Miller MD Procedures URINE MONOCLONAL PROTEIN STUDY (UPEP WITH IMMUNOTYPING) [address] [phone] Referral ID Status Reason Start Date Expiration Date Visits V isits Requested Authorized [id number] New Request 10/06/2021 1 1 aboratory Services (Routine/Next Available) - New Request Specialty Diagnoses / Procedures Referred By Contact Refer red To Contact Diagnoses Acute renal failure, unspecified acute renal failure type ([facility]) [facility] Procedures PROTEIN/CREATININE RATIO, URINE [address] [address] Referral ID Status Reason Start Date Expiration Date Visits V isits Requested Authorized [id number] New Request 10/06/2021 1 1 aboratory Services (Routine/Next Available) - New Request Specialty Diagnoses / Procedures Referred By Contact Refer red To Contact Diagnoses Acute renal failure, unspecified acute renal failure type (HCC-CMS) (Lacy Quiles MD Procedures URINE CHEMICAL (DIP) & SEDIMENT (MICRO) WITH REFLEX TO CULTURE 1 [place] [phone] Referral ID Status Reason Start Date Expiration Date Visits V isits Requested Authorized [id number] New Request 10/06/2021 1 1 aboratory Services (Routine/Next Available) - New Request Specialty Diagnoses / Procedures Referred By Contact Refer red To Contact Diagnoses Acute renal failure, unspecified acute renal failure type (HCC-CMS) (Lacy Quiles MD Procedures PTH INTACT 1 [place] [phone] Referral ID Status Reason Start Date Expiration Date Visits V isits Requested Authorized [id number] New Request 10/06/2021 1 1 aboratory Services (Routine/Next Available) - New Request Specialty Diagnoses / Procedures Referred By Contact Refer red To Contact Diagnoses Acute renal failure, unspecified acute renal failure type (HCC-CMS) (Lacy Quiles MD Procedures PHOSPHORUS [address] [phone] Referral ID Status Reason Start Date Expiration Date Visits V isits Requested Authorized [id number] New Request 10/06/2021 1 1 aboratory Services (Routine/Next Available) - New Request Specialty Diagnoses / Procedures Referred By Contact Refer red To Contact Diagnoses Acute renal failure, unspecified acute renal failure type (HCC-CMS) (HCC) Lacy Miller MD Procedures ACUTE HEPATITIS PROFILE [address] [phone] Referral ID Status Reason Start Date Expiration Date Visits V isits Requested Authorized [id number] New Request 10/06/2021 1 1 aboratory Services (Routine/Next Available) - New Request Specialty Diagnoses / Procedures Referred By Contact Refer red To Contact Diagnoses Acute renal failure, unspecified acute renal failure type (HCC-CMS) (HCC) Lacy Miller MD Procedures HEPATIC FUNCTION PANEL (ALB,ALK PHOS,ALT,AST,DBIL,TOT REUBEN,TOT PROT) [address] [address] Referral ID Status Reason Start Date Expiration Date Visits V isits Requested Authorized [id number] New Request 10/06/2021 1 1 aboratory Services (Routine/Next Available) - New Request Specialty Diagnoses / Procedures Referred By Contact Refer red To Contact Diagnoses Acute renal failure, unspecified acute renal failure type (HCC-CMS) (HCC) Lacy Miller MD Procedures BASIC METABOLIC PANEL (BMP) [address] [phone] Referral ID Status Reason Start Date Expiration Date Visits V isits Requested Authorized [id number] New Request 10/06/2021 6 6 Reason for Visit Reason Comments Acute Renal Failure 6 months' follow up on CKD i n a 71-yo male. It would appear that he had a missed appointment in February 2021. Infrequent lab testing as observed in the E MR - Creatinine was 2.5 in May 2020 and had jumped to 3.4 on 07/28 with hyperkalemia at 5.4 mmol/L. It was 1.6 in 2017. This is consistent with progressive CKD. He is liste d on Lisinopril 20 mg/d. Encounter Details Date Type Department Care Team Description 10/06/2021 Telemedicine [facility] Lacy Miller Acu te renal failure, Nephrology - S unspecified acute [place] 1 [facility] renal failure type 1 [facility] ([facility]) ([facility]) [place] [address] Rehab, Level 2 (Primary Dx) [phone] [place] [address] (Wo rk) Social History Tobacco Use Types Packs/Day Years Used Date Never Smoker Smokeless Tobacco: Never Used Alcohol Use Standard Drinks/Week Comments No 0 (1 standard drink = 0.6 oz pure alcoho l) Sex Assigned at Date Recorded Not on file documented as of this encounter Last Filed Vital Signs Vital Sign Reading Time Taken Comments Blood Pressure - - Pulse - - Temperature - - Respiratory Rate - - Oxygen Saturation - - Inhaled Oxygen Concentration - - Weight - - Height 182.9 cm (6') 10/06/2021 1343 EDT Body Mass Index - - documented in this encounter Functional Status Functional [...] Patient Instructions Patient InstructionsLacy Miller MD - 10/06/2021 14:00 EDT Extensive urine and blood tests for QUIANA work up ordered, including a renal sonogram. To review the continued use of Metformin with the PCP - with the worsening kidney failure. RTC 1 month. documented in this encounter Progress Notes Lacy Miller MD - 10/06/2021 1400 EDT This visit was conducted by telephone with consent given by the patients. During the visit, the patient's symptoms, weight, BP, medication usage and recent laboratory test results were reviewed. The telephone call lasted 22 minutes. Home Phone Work Phone NEPHROLOGY OFFICE FOLLOW UP VISIT NOTE SUBJECTIVE 6 months' follow up on CKD in a 71-yo male. It would appear that he had a missed appointment in February 2021. Infrequent lab testing as observed in the EMR - Creatinine was 2.5 in May 2020 and had jumped to 3.4 on 08/21/2021 with hyperkalemia at 5.4 mmol/L. It was 1.6 in November 2017. This is consistent with progressive CKD. He is listed on Lisinopril 20 mg/d. 10/05/2021 Chief Complaint Patient presents with ??? Acute Renal Failure 6 months' follow up on CKD in a 71-yo male. It would appear that he had a missed appointment in February 2021. Infrequent lab testing as observed in the EMR - Creatinine was 2.5 in May 2020 and had jumped to 3.4 on 08/21/2021 with hyperkalemia at 5.4 mmol/L. It was 1.6 in November 2017. This is consistent with progressive CKD. He is listed on Lisinopril 20 mg/d. HPI As above. He denied any systemic symptoms and feels generally well. BP - 136/87 Weight - About the same 271 lb. Breathing - None Leg swelling - None Nocturia - 1x. Joint pain - None Skin rash - None. Lightheaded - No Patient Active Problem List Diagnosis ??? Erectile [...] ??? glipiZIDE (GLUCOTROL) 10 mg tablet ??? lisinopriL (PRINIVIL) 20 mg tablet ??? metFORMIN (GLUCOPHAGE) 1,000 mg tablet ??? metoprolol TARtrate (LOPRESSOR) 25 mg tablet ??? sildenafil citrate (VIAGRA) 100 mg tablet ??? SITagliptin (JANUVIA) 100 mg tablet ??? TAMSulosin (FLOMAX) 0.4 mg capsule No current facility-administered medications for this visit. Allergies Allergen Reactions ??? Demerol [Meperidine] Nausea And Vomiting ??? Metoprolol Succinate Social History Tobacco Use ??? Smoking status: Never Smoker ??? Smokeless tobacco: Never Used Substance Use Topics ??? Alcohol use: No ??? Drug use: Not on file No family history on file. REVIEW OF SYSTEMS A ten point ROS was performed and was negative except for pertinent positives in the HPI There were no vitals taken for this visit. Phone visit. Lacy Miller MD 10/05/2021 14:36 Lab Results Component Value Date K 4.4 [...] 10/19/2017 [place] Neg 05/27/2015 ASSESSMENT & PLAN QUIANA - 6 months' follow up on CKD in a 71-yo male. It would appear that he had a missed appointment in February 2021. Infrequent lab testing as observed in the EMR - Creatinine was 2.5 in May 2020 andhad jumped to 3.4 on 08/21/2021 with hyperkalemia at 5.4 mmol/L. It was 1.6 in November 2017. This is consistent with progressive CKD. He is listed on Lisinopril 20 mg/d. The concern for this progressive QUIANA on CKD was expressed clearly to the patient together with the imminent need for dialysis. He had stated that he may likely not want to di dialysis any way. He was agreeable to urgent QUIANA work up to include BMP, LFT, phosphorus, PTH, CBC, urinalysis, PT-INR, UPC ratio, BRIDGER, C3 and c4 complements, ANCA, UPEP, SPEP, acute hepatitis profile and renal sonogram. He may even end up needing a kidney biopsy. He stated that he would be completing the tests at a hospital in [place], [place]. He confirmed being on Metformin 1000 mg BID, Lisinopril 20 mg/d and Januvia 25 mg/d. RTC in 1 month. Hyperkalemia - See above notes. DM - On Glipizide, Sitagliptin and Metformin. Metformin should be discontinued due to low eGFR of 18or even lower. He was advised to discus the continued use of Metformin given the reduced kidney function. documented in this encounter Plan of Treatment Upcoming Encounters Date Type Specialty Care Team Description 10/27/2021 Telemedicine Nephrology Rebekah Miller MD 1 [facility], Level 2 [place], [place] [phone] (Wo rk) Scheduled Orders Name Type Priority Associated Diagnoses Order S chedule BASIC METABOLIC PANEL Lab Routine Acute renal failure , Expected: 10/07/2021 (BMP) unspecified acute renal (Maria Luisa roximate), failure type (HCC-CMS) Expir es: 10/06/2022 (HCC) HEPATIC FUNCTION PANEL Lab Routine Acute renal failur e, Expected: 10/07/2021 (ALB,ALK unspecified acute renal (Maria Luisa roximate), PHOS,ALT,AST,DBIL,TOT failure type (HCC-C MS) Expires: 10/06/2022 REUBEN,TOT PROT) (HCC) ACUTE HEPATITIS PROFILE Lab Routine Acute renal failu re, Expected: 10/07/2021 unspecified acute renal (Maria Luisa roximate), failure type (HCC-CMS) Expir es: 10/06/2022 ([facility]) PHOSPHORUS Lab Routine Acute renal failure, Expecte d: 10/07/2021 unspecified acute renal (Maria Luisa roximate), failure type (HCC-CMS) Expir es: 10/06/2022 ([facility]) PTH INTACT Lab Routine Acute renal failure, Expecte d: 10/07/2021 unspecified acute renal (Maria Luisa roximate), failure type (HCC-CMS) Expir es: 10/06/2022 ([facility]) URINE CHEMICAL (DIP) & Lab Routine Acute renal failur e, Expected: 10/07/2021 SEDIMENT (MICRO) WITH unspecified acute r enal (Approximate), REFLEX TO CULTURE failure type ([facility]) Expires: 10/06/2022 ([facility]) PROTEIN/CREATININE RATIO, Lab Routine Acute renal selena lure, Expected: 10/07/2021 URINE unspecified acute renal (Maria Luisa roximate), failure type ([facility]-CMS) Expir es: 10/06/2022 ([facility]) URINE MONOCLONAL PROTEIN Lab Routine Acute renal fail ure, Expected: 10/07/2021 STUDY (UPEP WITH unspecified acute renal (Approximate), IMMUNOTYPING) failure type ([facility]) Expi res: 10/06/2022 ([facility]) SPEP, INCLUDES Lab Routine Acute renal failure, Expec rachael: 10/07/2021 QUANTITATION OF unspecified acute renal ( Approximate), MONOCLONAL SPIKE failure type ([facility]) E xpires: 10/06/2022 ([facility]) C3 COMPLEMENT Lab Routine Acute renal failure, Expect ed: 10/07/2021 unspecified acute renal (Maria Luisa roximate), failure type ([facility]-CMS) Expir es: 10/06/2022 ([facility]) C4 COMPLEMENT Lab Routine Acute renal failure, Expect ed: 10/07/2021 unspecified acute renal (Maria Luisa roximate), failure type ([facility]-CMS) Expir es: 10/06/2022 ([facility]) ANTI NUCLEAR AB (BRIDGER), Lab Routine Acute renal failur e, Expected: 10/07/2021 IFA unspecified acute renal (Maria Luisa roximate), failure type ([facility]-CMS) Expir es: 10/06/2022 ([facility]) ANCA, IFA Lab Routine Acute renal failure, Expecte d: 10/07/2021 unspecified acute renal (Maria Luisa roximate), failure type (HCC-CMS) Expir es: 10/06/2022 (HCC) PROTIME Lab Routine Acute renal failure, Expecte d: 10/09/2021 unspecified acute renal (Maria Luisa roximate), failure type (HCC-CMS) Expir es: 10/06/2022 (HCC) US RENAL/BLADDER COMPLETE Imaging Routine Acute renal selena lure, Expected: 10/13/2021 unspecified acute renal (Maria Luisa roximate), failure type (HCC-CMS) Expir es: 10/06/2022 (HCC) documented as of this encounter Visit Diagnoses Diagnosis Acute renal failure, unspecified acute r enal failure type (HCC-CMS) (HCC) - Primary documented in this encounter Additional Health Concerns Infection Onset Date Last Indicated Resolved Time MRSAComment: [facility] [place] Import 01/30/2021 01/30/2021 documented as of this encounter Care Teams Supervisor Instrument Mechanics Relationship Specialty Start Date End Date Priscilla Robert MD PCP - General 11/30/[address] [place] [phone] documented as of this encounter
--- OUTSIDE RECORDS SUMMARY | 2021-10-14 08:47 | XMS_ITS | Encounter Summary ---
:1950 Author Organization [facility] Address [address] [place] [address] Care Team Providers Name Role Phone Priscilla Robert MD Primary Care Provider Reason for Visit Reason Comments Chronic Kidney Disease Six months' follow up for CK D IV in a 70-yo male against a background for DM II and HTN , morbid obesity (268 lb) with BMI of 36) and listed on Januvia , Metformin, Tamsulosin and Amlodipine. Creatinine was 2 .5 mg/dL (eGFR=25.81) from 06/13/2020; it was 2.15 mg/dL in November 2019. Creatinine was 1.56 mg/dL in November 2017 . Encounter Details Date Type Department Care Team Description 03/24/2021 Telemedicine [facility] Rebekah MilleryAnsonnimo (Other: See Nephrology - S Comments) [address] [address] Rehab, [place] [address] (Wo rk) Social History Tobacco [...] 10/27/2021 Telemedicine Nephrology Rebekah Miller MD 1 [facility][1], Level 2 [place], [place] [phone] (Wo rk) documented as of this encounter Visit Diagnoses Not on filedocumented in this encounter Additional Health Concerns Infection Onset Date Last Indicated Resolved Time MRSAComment: [facility] [place] Inf Import 01/30/2021 01/30/2021 documented as of this encounter Care Teams Process Developer Relationship Specialty Start Date End Date Priscilla Robert MD PCP - General 11/30/[address] [place] [phone] documented as of this encounter
--- OUTSIDE RECORDS SUMMARY | 2021-10-14 08:47 | XMS_ITS | Encounter Summary ---
:[address] [facility] Address [address] [place] [address] Care Team Providers Name Role Phone Priscilla Robert MD Primary Care Provider Encounter Details Date Type Department Care Team Description 09/03/2020 Abstract [facility] Kristina Miller MD Nephrology - S Prosp ect [address] [place], [place] [phone] [place] [phone] (Wo rk) Social History Tobacco Use Types [...] 10/27/2021 Telemedicine Nephrology Rebekah Miller MD 1 [facility], Level [address] [place], [place] [phone] (Wo rk) documented as of this encounter Procedures Procedure Name Priority Date/Time Associated Diagnosis Comme nts COMPREHENSIVE METABOLIC Routine 12/08/2017 Resu lts for this PANEL (CMP) procedure are i n the results section . documented in this encounter Results COMPREHENSIVE METABOLIC PANEL (CMP) (12/08/2017) Pathologist Sig nature GFR, Calculated, 44.75 [facility] Glucose, Serum, External [address] [facility] Albumin, External 4.1 [facility] Total Alkaline [facility] Phosphatase, External [facility] ALT, External [address] [facility] AST, External 19 [facility] BUN, External 28 [facility] Calculated Calcium, [facility] Calcium, External 9.0 [facility] Chloride, External [address] [facility] CO2, External 26.8 [facility] Creatinine, External 1.56 [facility] Fasting?, External [facility] Potassium, External 4.3 [facility] Sodium, External 140 [facility] Total Protein, External 7.4 [facility] Bilirubin, Total, 0.5 [facility] Specimen Blood - Venous blood (substance) Performing Organization Address City/State/ZIP Code Phon e Number [facility] [address] [place] [address] [facility] documented in this encounter Visit Diagnoses Not on filedocumented in this encounter Care Teams Machine Bookkeeper Relationship Specialty Start Date End Date Priscilla Robert MD PCP - General 11/30/[address] [place] [phone] documented as of this encounter
--- OUTSIDE RECORDS SUMMARY | 2021-10-14 08:47 | XMS_ITS | Clinical Summary ---
:[address] [facility] Address [address] [place] [address] Care Team Providers Name Role Phone Priscilla Robert MD Primary Care Provider Allergies Active Allergy Reactions Severity Noted Date Comments Meperidine Nausea And Vomiting 04/01/2009 Metoprolol Succinate Confirm ed with patient, he is not aller gic to this metoprolol Medications Medication Sig Dispensed Refills Start Date End Date Status amlodipine (NORVASC) 5 Take 10 mg by 0 Active mg tablet mouth daily. Reported on 07/06/2016 aspirin chewable 81 mg Take 1 Tab by 1 Tab 0 04/15/2009 Active tablet mouth daily. Takes in am metFORMIN (GLUCOPHAGE) Take 1,000 mg by 0 Active 1,000 mg tablet mouth 2 times daily. glipiZIDE (GLUCOTROL) Take 10 mg by 0 Active 10 mg tablet mouth daily. atorvastatin (LIPITOR) Take 10 mg by 0 Active 10 mg tablet mouth daily. clotrimazole-betametha Apply to affected 1 Tube 0 8 Active sone (LOTRISONE) cream area twice daily as needed. Additional Information Patient not taking. Reported on 12/07/2019 SITagliptin (JANUVIA) 100 mg Take 25 mg by mouth daily. 0 Active tablet Take in am acetaminophen (TYLENOL) 325 mg Take 2 Tabs by mouth every 0 12/08/2019 Active tablet 4 hours as needed for Pain. Additional Information Patient not taking. Reported on 08/28/2021 docusate sodium (COLACE) 100 Take 1 Cap by mouth 2 times daily 0 12/08/2019 Active mg capsule as needed for Constipation. Additional Information Patient not taking. Reported on 08/28/2021 metoprolol TARtrate Take 25 mg by mouth 2 0 Active (LOPRESSOR) 25 mg tablet times daily. TAMSulosin (FLOMAX) 0.4 mg Take 1 capsule by mouth 90 capsule 5 05/20/2021 Active capsule daily. sildenafil citrate (VIAGRA) Take 1 Tablet by mouth 30 Tablet 11 05/20/2021 Active 100 mg tablet as needed for Erectile Dysfunction. lisinopriL (PRINIVIL) 20 mg Take 20 mg by mouth 0 Active tablet daily. Active Problems Problem Noted Date Erectile dysfunction 10/24/2019 Overview: Added automatically from request for [place]ules [place] [id number] Encounters Date Type Specialty Care Team Description 10/06/2021 Telemedicine Nephrology Lacy Miller MD Acute renal failure, unspecified acu te renal failure type (H CC-CMS) (HCC) (Primary Dx) 10/06/2021 Telephone Nephrology Dania Forte Labs On ly RN 08/28/2021 Telephone Nephrology Lacy Miller MD Follow -up 08/28/2021 Abstract Nephrology Lacy Miller MD 08/27/2021 Telephone Nephrology Lacy Miller MD Other from Last 3 Months Surgical History Surgery Date Site/Laterality Comments OTHER SURGICAL HISTORY 2002, 2008 IPP Inser tion Medical History Medical History Date Comments History of general anesthesia 11/16/19 no issues Exercise involving walking Patient unable to exercise 11/17/19 walks less due to COVID Hypertension 11/17/19 Treated with meds, good results Diabetes mellitus (HCC) 11/17/19 on oral meds Social History Tobacco Use Types Packs/Day Years Used Date Never Smoker Smokeless Tobacco: Never Used Tobacco Cessation: Counseling Given: Yes Alcohol Use Standard Drinks/Week Comments No 0 (1 standard drink = 0.6 oz pure alcoho l) Sex Assigned at Date Recorded Not on file Last Filed Vital Signs Vital Sign Reading Time Taken Comments Blood Pressure 145/84 09/02/2020 1113 EDT Pulse 108 12/07/2019 0814 EDT Temperature 37.2 ??C (99 ??F) 12/08/2019 0547 EDT Respiratory Rate 18 12/08/2019 0547 EDT Oxygen Saturation 94% 12/08/2019 0547 EDT Inhaled Oxygen Concentration - - Weight 122.5 kg (270 lb) 09/02/2020 1113 EDT Height 182.9 cm (6') 10/06/2021 1343 EDT Body Mass Index 36.62 09/02/2020 1113 EDT Plan of Treatment Upcoming Encounters Date Type Specialty Care Team Description 10/27/2021 Telemedicine Nephrology Rebekah Miller MD [facility], [address] [place], [place] [address] (Wo rk) Health Maintenance Due Date Last Done Comments Hepatitis C Screen 1950 COVID-19 Vaccine (#1) 1950 Fall Risk Screening 06/22/2016 Implants Implanted Type Area Strategic Account Executive Device Identifier Shelf Model / Expiration Serial / Lot Date [place] 100ml - [id number] N/A: [place] [id number] 05/22/2021 [id number] / Implanted: Qty: 1 on 12/07/2019 by Nacho Walden MD at [facility] [employer] / [id number] Ams 700 Cx Ms Pump Iz N/A: Juve 03/14/20 20 [id number] / Implanted: Qty: 1 on 12/07/2019 by Nacho Walden MD at [facility] [employer] / [id number] Snapcone 0.5 - [id number] N/A: [place] [id number] 05/31/2022 [id number] / Implanted: Qty: 1 on 12/07/2019 by Nacho Walden MD at [facility] [employer] / [id number] Procedures Procedure Name Priority Date/Time Associated Diagnosis Comme nts COMPLETE BLOOD COUNT Routine 08/21/2021 Results for this procedure are i n the results section . COMPREHENSIVE METABOLIC Routine 08/21/2021 Resu lts for this PANEL (CMP) procedure are i n the results section . HEMOGLOBIN A1C Routine 08/21/2021 Results for t his procedure are i n the results section . VITAMIN D (25,OH) Routine 08/21/2021 Results fo r this procedure are i n the results section . from Last 3 Months Results VITAMIN D (25,OH) (08/21/2021) Pathologist Sig nature 25OH Vitamin D Tot, 41.5 [facility] Specimen Blood - Venous blood (substance) Performing Organization Address [facility]/ZIP Code Phon e Number [facility] COMPLETE BLOOD COUNT (08/21/2021) Pathologist Sig [facility] HCT, External 35.1 [facility] MCH, External 28.7 [facility] MCV, External 90 [facility] MCHC, External 31.9 [facility] Hemoglobin, External 11.2 [facility] WBC, External 6.50 [facility] RBC, External 3.90 [facility] PLT, External 167 [facility] RDW-CV, External 13.5 [facility] Specimen Blood - Venous blood (substance) Performing Organization Address City/[facility]/ZIP Code Phon e Number [facility] HEMOGLOBIN A1C (08/21/2021) Pathologist Sig [facility] Hemoglobin A1C, 7.7 [facility] Est Avg Glucose, [facility] Specimen Blood - Venous blood (substance) Performing Organization Address City/[facility]/ZIP [facility] Phon e Number [facility] COMPREHENSIVE METABOLIC PANEL (CMP) (08/21/2021) Pathologist Sig [facility] GFR, Calculated, 18 [facility] Glucose, Serum, 179 [facility] Albumin, External 4.4 [facility] Total Alkaline 77 [facility] Phosphatase, [facility] L AB ALT, External 33 [facility] AST, External 16 [facility] BUN, External 40 [facility] Calculated Calcium, [facility] Calcium, External 9.0 [facility] Chloride, External 107 [facility] CO2, External 24.6 [facility] Creatinine, External 3.4 [facility] Fasting?, External [facility] Potassium, External 5.4 [facility] Sodium, External 143 [facility] Total Protein, External 7.7 [facility] Bilirubin, Total, 0.5 [facility] Specimen Blood - Venous blood (substance) Performing Organization Address City/State/ZIP Code Phon e Number [facility] from Last 3 Months Additional Health Concerns Infection Onset Date Last Indicated MRSAComment: [facility] Inf Import 01/30/2021 01/30/2021 Insurance Payer Benefit Plan / Subscriber ID Effective Dates Phone Addre ss Type Group MEDICARE MEDICARE A/B [id number] 2016-Presen P O [id number] Medicare GL t [facility] [place] [phone] [place]BS [place] [id number] 2019-Presen [address] [place] [address] [place] [address] Avery Padilla Personal/Family Self 1950 [address]Home) [place] [address] Avery Padilla Personal/Family Self 1950 [address]Home) [place] [address] Avery Padilla Personal/Family Self 1950 [address]Home) [place] [address] Avery Padilla Personal/Family Self 1950 [address]Home) [place] [address] Advance Directives For more information, please contact: [phone] Documents on File Type Date Recorded 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 Not Discussed Full Code 04/08/2009 19:02 04/09/2009 14:44 Care Teams Technical Services Assistant Relationship Specialty Start Date End Date Priscilla Robert MD PCP - General 11/30/19 [address] [place] [phone]
--- OUTSIDE RECORDS SUMMARY | 2021-10-14 08:47 | XMS_ITS | Encounter Summary ---
:1950 Author Organization [facility] Address [address] [place] [address] Care Team Providers Name Role Phone Priscilla Robert MD Primary Care Provider Encounter Details Date Type Department Care Team Description 09/13/2020 Lab Requisition [facility] Outr Resulting Lab, Pathology & Laboratory Provider [facility] [address] [place], [place] [address] Social History Tobacco Use Types Packs/Day Years [...] 10/27/2021 Telemedicine Nephrology Rebekah Miller MD 1 [facility], [address] [place], [place] [phone] (Wo rk) documented as of this encounter Procedures Procedure Name Priority Date/Time Associated Diagnosis Comme nts PTH INTACT Routine 09/13/2020 8:20 EDT Results for this procedure are i n the results section . documented in this encounter Results (ABNORMAL) PTH INTACT (09/13/2020 8:20 EDT) Pathologist Sig nature Intact PTH 98 (H) 19 - 88 pg/mL [facility] Specimen Blood - Venous blood (substance) Performing Organization Address City/State/ZIP Code Phon e Number [facility] [address] [place] [address] SERVICES documented in this encounter Visit Diagnoses Not on filedocumented in this encounter Additional Health Concerns Infection Onset Date Last Indicated Resolved Time MRSAComment: [facility] Inf Import 01/30/2021 01/30/2021 documented as of this encounter Care Teams Wire Drawer Relationship Specialty Start Date End Date Priscilla Robert MD PCP - General 11/30/19 [address] [place] [phone] documented as of this encounter
--- OUTSIDE RECORDS SUMMARY | 2021-10-14 08:48 | XMS_ITS | Encounter Summary ---
:1950 Author Organization [facility] Address [address] [place] [address] Care Team Providers Name Role Phone None, Provider Primary Care Provider Unavailable Reason for Visit Reason Onset Date Comments COVID-19 11/16/2019 Labs Only 11/16/2019 12/03/19 10:30am Encounter Details Date Type Department Care Team Description 11/16/2019 Telephone [facility] COVID -19; Labs Only [facility] Pascual Davalos (12/03/19 10:30am) - [facility] [address], [place], [place] Bernardo Palacios [id number] [place] [phone] (Wo rk) Social History Tobacco Use Types Packs/Day Years Used Date Never Smoker Smokeless Tobacco: Never Used Alcohol Use Standard Drinks/Week Comments No 0 (1 standard drink = 0.6 oz pure alcoho l) Sex Assigned at Date Recorded Not on file documented as of this encounter Functional Status Functional Status Response Date of Assessment Because of a physical, mental, or emotional condition, No 10/19/2017 does this person have difficulty doing errands alone such as visiting a doctor's office or shopping? Cognitive Status Response Date of Assessment Because of a physical, mental, or emotional condition, No 10/19/2017 does this person have serious difficulty concentrating, remembering, or making decisions? documented as of this encounter Miscellaneous Notes Telephone Encounter - Odessa Bello - 11/16/2019 6836 EDT ..C-19 screening recommended by provider. Routed for testing ordering. Vehicle: [employer] pickup Color: red Cell #: [phone] Spoke to patient and verbally gave instructions for Testing Facility. Patient is instructed to be there at 10:30am sharp on 12/03/19. elephone Encounter - Mehreen Gray - 11/16/2019 1243 EDT Called patient to schedule COVID-19 testing. Requested a call back [phone]. This is our 1st attempt at contacting patient documented in this encounter Plan of Treatment Upcoming Encounters Date Type Specialty Care Team Description 10/27/2021 Telemedicine Nephrology Rebekah Miller MD 1 [facility], [address] [place], [place] [phone] (Wo rk) documented as of this encounter Visit Diagnoses Not on filedocumented in this encounter Care Teams Gusset Edger Relationship Specialty Start Date End Date None, Provider PCP - General 07/03/16 11/29/19 documented as of this encounter
--- OUTSIDE RECORDS SUMMARY | 2021-10-14 08:48 | XMS_ITS | Encounter Summary ---
:1950 Author Organization [facility] Address [address] [place] [address] Care Team Providers Name Role Phone Brenden Salcedo MD Primary Care Provider Encounter Details Date Type Department Care Team Description 04/03/2014 Orders Only [facility] Nicole Traore (Primary Dx) Urology - Medical R, EMPLOYER RELATIONS REPRESENTATIVE Office Building [address] [place] [address] [address] [phone] [place], [place] [address] Social History Tobacco Use Types Packs/Day Years Used Date Never Smoker Alcohol Use Standard Drinks/Week Comments No 0 (1 standard drink = 0.6 oz pure alcoho l) Sex Assigned at Date Recorded Not on file documented as of this encounter Functional Status Cognitive Status Response Date of Assessment Because of a physical, mental, or emotional condition, do Ye s 04/08/2009 you have serious difficulty concentrating, remembering, or making decisions? (5 years old or older) documented as of this encounter Plan of Treatment Upcoming Encounters Date Type Specialty Care Team Description 10/27/2021 Telemedicine Nephrology Rebekah Miller MD [address] [facility], [address] [place], [place] [phone] (Wo rk) documented as of this encounter Visit Diagnoses Diagnosis Dysuria - Primary documented in this encounter Care Teams Fur Joiner Relationship Specialty Start Date End Date Brenden Salcedo MD PCP - General 03/21/14 07/02/16 documented as of this encounter
--- OUTSIDE RECORDS SUMMARY | 2021-10-14 08:48 | XMS_ITS | Encounter Summary ---
:[address] [facility] Address [address] [place] [address] Care Team Providers Name Role Phone None, Provider Primary Care Provider Unavailable Encounter Details Date Type Department Care Team Description 01/19/2018 Results Only [facility] Tariq Cam MD [phone] [address] [place] [address] (Wo rk) Social History Tobacco Use Types [...] making decisions? documented as of this encounter Plan of Treatment Upcoming Encounters Date Type Specialty Care Team Description 10/27/2021 Telemedicine Nephrology Rebekah Miller MD 1 [facility], [address] [place], [place] [phone] (Wo rk) documented as of this encounter Procedures Procedure Name Priority Date/Time Associated Diagnosis Comme nts SURGICAL PATHOLOGY Routine 01/19/2018 15:56 Resul ts for this EDT procedure are i n the results section. documented in this encounter Results SURGICAL PATHOLOGY (01/19/2018 15:56 EDT) Pathology SURGICAL PATHOLOGY REPORT [facility] MEDICAL Report: Reports generated via electronic interface conta in original data; [facility] however they are lacking the format of the original re port. SERVICES Caution should be taken when reading/interpreting unfo rmatted reports. Name: ? GRACIELA PADILLA ? Accession #: ? [id number] ? : ? 1950 (Age: [age]) ??M ? Collect Date: ? 01/19/2018 ? Location: ? [facility] ? Receive Date: ? 018 ? Provider: TARIQ DANIELSON MD Copy to: ? 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 ?? Comment: Within the dermis, there is an epithelial neoplasm ba t has ductal differentiation and features of eccrine origin. 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 In areas , the cells show mild atypia that appears to be reactive. There is no overt evidence of malignancy. However, the lesion is transected at the periphe ral edge and along the entire base of the biopsy specimen. Therefore, correlat ion with the clinical history and physical examination, with continued surveillance or complete re-excision, is recommended. This case was shown at intradepartment al consultation conference. (Dr. Peacock)/jds Microscopic Description: Sections consist of a shave biopsy of skin to the mid reticular dermis. The epidermis varies to a mild degree in thi ckness and rete architecture. It shows mild reactive changes, but is otherwise unremarkable. Within the reticular dermis, and extending to the base of the biopsy, is an epithelial neoplasm. The neoplasm consists of islands of varying size. Some of the larger islands are partially cystic and have pr oteinaceous fluid and hemorrhage. The proliferation is composed of relatively uniform cuboidal cells with a moderate amount of eosinophilic cytoplasm. In a reas, cells with clear cytoplasm are also evident. A few mitotic figures are evident and, in some areas, th e nuclei are mildly pleomorphic. The islands are discrete with no infiltrative pattern. The islands, in some areas, have en jose carlos necrosis. There is prominent duct formation with surrounding cuticular cells. The stoma appears hyalini zed. (Dr. Peacock)/fatoumata ?? Document reviewed and electronically signed by: ANUSHA PEACOCK MD Report ??Date: 01/21/2018 16:01 By the signature above, the attending physician certif ies that he/she has personally conducted a gross and/or microscopic examin ation of the described specimens and rendered or confirmed the above diagnosi s. Specimen(s) Received: 3.0 cm fleshy lesion shave biopsy Clinical History: Large 3.0 cm growth mid back ? Gross Description: ? Received in formalin labelled with proper patient identification (initials L, R) and shave biopsy 3.0 cm fleshy is a shave biop sy of a shankar-white wrinkled sessile lesion (1.9 x 1.3 x 0.4 cm). The spec imen is inked, quadrisected and submitted in 1 and 2. MILAN Cohn (ASCP) 01/20/2018 4:05 PM End of Report Specimen Performing Organization Address City/State/ZIP Code Phon e Number [facility] [address] [place] [address] SERVICES documented in this encounter Visit Diagnoses Not on filedocumented in this encounter Care Teams Microstrategy Architect Relationship Specialty Start Date End Date None, Provider PCP - General 07/03/16 11/29/19 documented as of this encounter
--- OUTSIDE RECORDS SUMMARY | 2021-10-14 08:48 | XMS_ITS | Encounter Summary ---
:1950 Author Organization [facility] Address [address] [place] [address] Care Team Providers Name Role Phone None, Provider Primary Care Provider Unavailable Reason for Visit Reason Onset Date Comments Prior Auth, Medication 10/24/2019 Encounter Details Date Type Department Care Team Description 10/24/2019 Telephone [facility] Nacho Barrow Prior Auth, Medication Urology - [facility] Eduard Davalos MD 111 [facility] [address] [phone] [place], [address] [place] [address] (Wo rk) Social History Tobacco [...] this encounter Miscellaneous Notes Telephone Encounter - Analilia Pelayo MA - 10/24/2019 1531 EDT Request was received from pharmacy to [place] Sildenafil 100mg. Unable to obtain approval since medications for this indication are excluded from coverage under Part D law. documented in this encounter Plan of Treatment Upcoming Encounters Date Type Specialty Care Team Description 10/27/2021 Telemedicine Nephrology Rebekah Miller MD 1 [facility], [address] [place], [place] [phone] (Wo rk) documented as of this encounter Visit Diagnoses Not on filedocumented in this encounter Care Teams Gluten Settling Tender Relationship Specialty Start Date End Date None, Provider PCP - General 07/03/16 11/29/19 documented as of this encounter
--- OUTSIDE RECORDS SUMMARY | 2021-10-14 08:48 | XMS_ITS | Encounter Summary ---
:1950 Author Organization [facility] Address [address] [place] [address] Care Team Providers Name Role Phone Brenden Salcedo MD Primary Care Provider Reason for Visit Reason Onset Date Comments Medications Refill 05/26/2016 Encounter Details Date Type Department Care Team Description 05/26/2016 Telephone [facility] Nacho Barrow Medic ations Refill Urology - Mikhail Davalos MD Office Building [address] [place] [address], [address] [place], [place] [phone] [place] [address] [phone] (Wo rk) Social History Tobacco Use Types Packs/Day Years Used Date Never Smoker Alcohol Use Standard Drinks/Week Comments No 0 (1 standard drink = 0.6 oz pure alcoho l) Sex Assigned at Date Recorded Not on file documented as of this encounter Functional Status Functional Status Response Date of Assessment Because of a physical, mental, or emotional condition, No 05/27/2015 does this person have difficulty doing errands alone such as visiting a doctor's office or shopping? Cognitive Status Response Date of Assessment Because of a physical, mental, or emotional condition, No 05/27/2015 does this person have serious difficulty concentrating, remembering, or making decisions? documented as of this encounter Ordered Prescriptions Prescription Sig Dispensed Refills Start Date End Date tamsulosin (FLOMAX) 0.4 mg Take 1 Cap by mouth 90 Cap 0 05/26/2016 07/06/2016 capsule daily. documented in this encounter Miscellaneous Notes Telephone Encounter - Tamara Zamudio RN - 05/26/2016 0959 EST Short term supply of Flomax sent to pharmacy, patient was due for yearly follow up, appointment was cancelled, [facility]. elephone Encounter - Makenna Zuniga - 05/26/2016 0937 EST tamsulosin hcl 0.4 mg caps Qty 90 Take one tablet by mouth every day Last fill date 1216 documented in this encounter Plan of Treatment Upcoming Encounters Date Type Specialty Care Team Description 10/27/2021 Telemedicine Nephrology Rebekah Miller MD 1 [facility], [address] [place] [phone] (Wo rk) documented as of this encounter Visit Diagnoses Not on filedocumented in this encounter Discontinued Medications Medication Sig Discontinue Reason Start Date End Date tamsulosin (FLOMAX) 0.4 Take 1 Cap by mouth Reorder 06/13/2015 05/26/2016 mg capsule daily. documented as of this encounter Care Teams Tanyard Worker Relationship Specialty Start Date End Date Brenden Salcedo MD PCP - General 03/21/14 07/02/16 documented as of this encounter
--- OUTSIDE RECORDS SUMMARY | 2021-10-14 08:48 | XMS_ITS | Encounter Summary ---
:1950 Author Organization [facility] Address [address] [place] [address] Care Team Providers Name Role Phone Priscilla Robert MD Primary Care Provider Encounter Details Date Type Department Care Team Description 12/03/2019 Results Only [facility] Nacho Barrow, Urology - Medical Office MD [address] 5 [place], [place] [address] [place] [address] [phone] (Wo rk) Social History Tobacco Use [...] Description 10/27/2021 Telemedicine Nephrology Rebekah Miller MD [address] [place] [address], Level 2 [place] [phone] (Wo rk) documented as of this encounter Procedures Procedure Name Priority Date/Time Associated Diagnosis Comme nts COVID-19 TESTING Routine 12/03/2019 10:10 EDT Res ults for this procedure are i n the results section. documented in this encounter Results COVID-19 TESTING (12/03/2019 10:10 EDT) Performing Lab [place] [facility] Comment: [facility] Please indicate the Triage Tiertier 2 Test performed or referred by The [address] [address] COVID-19 rt-PCR Not Detected Negative [facility] Result Comment: [facility] 2019-novel Coronavirus (2019-nCoV) not detected by the qRT-PCR assay. Consider testing for other respiratory viruses or re-collecting for 2019-nCoV testing. Note: Optimum timing for peak viral levels during infections caused by 2019-nCoV have not been determined. Collecti on of multiple specimens from the same patient may be necess mahsa to detect the virus. Limitations Positive results are indicative of active infection wi th SARS-CoV-2 but do not rule out bacterial infection or co-infection with other viruses. The agent detected ma y not be the definite cause of disease. In addition, detecti on of viral RNA may not indicate the presence of infectious virus or that SARS-CoV-2 is the causative agent for clinical symptoms. Negative results do not preclude SARS-CoV-2 infection and should not be used as the sole basis for patient manag ement decisions. Negative results must be combined with clin ical observations, patient history, and epidemiological information. False negative results may also occur if amplification inhibitors are present in the specimen o r if inadequate numbers of organisms are present in the specimen. Optimum specimen types and timing for peak v iral levels during infections caused by SARS-CoV-2 have not been fully determined. Collection of multiple specimens (ty pes and time points) from the same patient may be necessar y to detect the virus. The test was validated for use with upper respiratory specimens obtained via nasopharyngeal or oropharyngeal swabs in VTM, UTM, M4, M5, M6, saline, and MTM media. The performance of this test has not been established for other specimens. Specimens collected using other FDA recomme nded Specimen Collection Materials listed in the FDA COVID- 19 [employer] communication (June 22, 2019) are processed with the caveat that they were not all valid ated for use with this test and the result must be interpre rachael in this context. Furthermore, a false negative results may occur if a specimen is improperly collected, transport ed or handled. If the virus mutates in the RT-PCR target region, SARS-CoV-2 may not be detected or may be detected less predictably. Inhibitors or other types of interference may produce a false negative result. An interference study evaluatin g the effect of common cold medications was not performed. This test is not FDA-cleared but its performance characteristics were established by our CLIA-certified , CAP-accredited, high complexity laboratory in [facility] with CLIA regulations, [employer] s (CAP) guidelines (Jun 15, 2019), and FDA guidance (May 27, 2019). This test is only for use under the Food and Drug Administration's Emergency Use Authorization. Specimen Performing Organization Address City/State/ZIP Code Phon e Number [facility] [address] [place] [address] documented in this encounter Visit Diagnoses Not on filedocumented in this encounter Care Teams Social Work Associate Relationship Specialty Start Date End Date Priscilla Robert MD PCP - General 11/30/[address] [place] [phone] documented as of this encounter
--- OUTSIDE RECORDS SUMMARY | 2021-10-14 08:48 | XMS_ITS | Encounter Summary ---
:1950 Author Organization [facility] Address [address] [place] [address] Care Team Providers Name Role Phone None, Provider Primary Care Provider Unavailable Encounter Details Date Type Department Care Team Description 07/07/2017 Orders Only [facility] Nacho Barrow w [facility] urinary Urology - Medical MD Anoop obstruction (Primary Office Building [address] [place] [address]) [address] [facility] [address] [place] [address] [place], [place] [address] (Wo rk) Social History Tobacco Use Types Packs/Day Years Used Date Never Smoker Alcohol Use Standard Drinks/Week Comments No 0 (1 standard drink = 0.6 oz pure alcoho l) Sex Assigned at Date Recorded Not on file documented as of this encounter Functional Status Functional Status Response Date of Assessment Because of a physical, mental, or emotional condition, No 07/06/2016 does this person have difficulty doing errands alone such as visiting a doctor's office or shopping? Cognitive Status Response Date of Assessment Because of a physical, mental, or emotional condition, No 07/06/2016 does this person have serious difficulty concentrating, remembering, or making decisions? documented as of this encounter Plan of Treatment Upcoming Encounters Date Type Specialty Care Team Description 10/27/2021 Telemedicine Nephrology Rebekah Miller MD 1 [facility], Level 2 [place] [phone] (Wo rk) documented as of this encounter Results (ABNORMAL) POCT URINE DIPSTICK (10/19/2017 9:06 EDT) Color YELLOW [facility] Clarity, UA Clear [facility] Glucose 2+ (A) Neg [facility] Bilirubin Neg Neg [facility] Ketones Neg [facility] Specific Forsan 1.010 1.001 - 1.035 [facility] Blood Trace (A) [facility] pH 5.0 4.6 - 8.0 [facility] Protein 2+ (A) [facility] Urobilinogen 0.2 0.2 - 1.0 [facility]dl [facility]ORATORY SERVICES Nitrite Neg [facility] Leuk Esterase Neg [facility] environmental sampler ID [id number]: [facility] Test performed at LABORATORY [facility] SERVICES Urology Specimen Urine (substance) - Urine Performing Organization Address City/State/ZIP Code Phon e Number [facility] [address] [place] [id number] SERVICES UROLOGY BLADDER SCAN (10/19/2017 8:59 EDT) Pathologist Sig nature Bladder Scan 79ml POINT OF CARE [facility] Specimen Urine (substance) Performing Organization Address City/State/ZIP Code Phon e Number [facility] POINT OF CARE [facility] documented in this encounter Visit Diagnoses Diagnosis BPH with urinary obstruction - Primary Hypertrophy of prostate with urinary obs truction and other lower urinary tract symptoms (LUTS) documented in this encounter Care Teams Soap Inspector Relationship Specialty Start Date End Date None, Provider PCP - General 07/03/16 11/29/19 documented as of this encounter
--- OUTSIDE RECORDS SUMMARY | 2021-10-14 08:48 | XMS_ITS | Encounter Summary ---
:1950 Author Organization [facility] Address [address] [place] [address] Care Team Providers Name Role Phone Priscilla Robert MD Primary Care Provider Reason for Visit Reason Onset Date Comments Medication Questions 12/06/2019 Encounter Details Date Type Department Care Team Description 12/06/2019 Telephone [facility] Nacho Barrow Medic ation Questions Urology - [facility] Eduard Davalos MD [address] [facility] [address] [place], [place] [id number] [place] [address] [facility] [address] [place] [address] (Wo rk) Social History Tobacco Use Types Packs/Day Years Used Date Never Smoker Smokeless Tobacco: Never Used Alcohol Use Standard Drinks/Week Comments No 0 (1 standard drink = 0.6 oz pure alcoho l) Sex Assigned at Date Recorded Not on file COVID-19 Exposure Response Date Recorded In the last month, have you been in contact with No / Unsure 12/07/2019 5:52 EDT someone who was confirmed or suspected to have Coronavirus / COVID-19? documented as of this encounter Functional Status [...] this encounter Miscellaneous Notes Telephone Encounter - Chayo Spivey, VIV - 12/06/2019 1503 EDT Tc to pharmacy and was told Radha is not in the office presently and to page her on [phone]. Radha paged at [phone]. elephone Encounter - Carito Morfin - 12/06/2019 1405 EDT [facility] in patient pharmacy calling in regards to patient's pre op medication orders. They have question's regarding these medications. Please call to discuss. documented in this encounter Plan of Treatment Upcoming Encounters Date Type Specialty Care Team Description 10/27/2021 Telemedicine Nephrology Rebekah Miller MD 1 [facility], Level [address] [place], [place] [phone] (Wo rk) documented as of this encounter Visit Diagnoses Not on filedocumented in this encounter Care Teams Pediatric Clinical Nurse Specialist Relationship Specialty Start Date End Date Priscilla Robert MD PCP - General 11/30/19 [address] [place] [address] documented as of this encounter
--- OUTSIDE RECORDS SUMMARY | 2021-10-14 08:48 | XMS_ITS | Encounter Summary ---
:1950 Author Organization [facility] Address [address] [place] [address] Care Team Providers Name Role Phone Brenedn Salcedo MD Primary Care Provider Encounter Details Date Type Department Care Team Description 04/15/2015 Orders Only [facility] Nacho Barrow BPH w [facility] urinary Urology - Medical MD Anoop obstruction (Primary Office Building 111 [facility]) [address] [facility] [address] [place] [address] [place], [place] [address] (Wo rk) Social History Tobacco [...] Nephrology Rebekah Miller MD [facility], Level 2 [place], [place] [phone] (Wo rk) documented as of this encounter Visit Diagnoses Diagnosis BPH with urinary obstruction - Primary Hypertrophy of prostate with urinary obs truction and other lower urinary tract symptoms (LUTS) documented in this encounter Care Teams Mental Health Technician Relationship Specialty Start Date End Date Brenden Salcedo MD PCP - General 03/21/14 07/02/16 documented as of this encounter
--- OUTSIDE RECORDS SUMMARY | 2021-10-14 08:48 | XMS_ITS | Encounter Summary ---
:[address] [facility] Address [address] [place] [address] Care Team Providers Name Role Phone Priscilla Robert MD Primary Care Provider Reason for Visit Reason Comments Post-OP Follow Up 3 month Encounter Details Date Type Department Care Team Description 05/17/2020 Office Visit [facility] Nacho Barrow ile dysfunction, unspecified erectile dysfunction type (Primary Dx); Urology - Medical MD Anoop Benign prostatic hyperplasia with urinar y frequency Office Building [address] [place] [address], [place] [address] [facility], [address], [place] [address] (Wo rk) Social History Tobacco [...] or older) documented as of this encounter Progress Notes Nacho Barrow MD - 05/17/2020 0930 EST Images from the original note were not included. Subjective: Patient ID: Avery Padilla is an [address] Priscilla Robert has requested that I see Avery Padilla in consultation for Post-OP Follow Up (3 month). HPI He is here today 3 months following his penile implant. He has had his third revision with a 24 plus a 0.5 cm implant . This has been effective . He has been quite effective. He has had no issues. He has BPH and the Flomax is effective. Patient Active Problem List Diagnosis ??? Erectile dysfunction Past Medical History: Diagnosis Date ??? Diabetes mellitus ([facility]) 11/17/19 on oral meds ??? Exercise involving [...] ??? SITagliptin (JANUVIA) 100 mg tablet Take 100 mg by mouth daily. Take in am ??? tamsulosin (FLOMAX) 0.4 mg capsule Take 1 Cap by mouth daily. 90 Cap 0 No current facility-administered medications on file prior [...] Behavior normal. Thought Content: Thought content normal. No visits with results within 1 Day(s) from this visit. Latest known visit with results is: Admission on 12/07/2019, Discharged on 12/08/2019 Component Date Value Ref Range Status ??? Glucose, POC 12/07/2019 326* 70 - 100 mg/dL Final ??? Tech ID 12/07/2019 [id number] Final ??? HN LAB POC COMMENT (GLUCOSE) 12/07/2019 Test Performed by Nursing Services Final ??? Glucose, POC 12/07/2019 300* 70 - 100 mg/dL Final ??? Tech ID 12/07/2019 [id number] Final ??? HN LAB POC COMMENT (GLUCOSE) 12/07/2019 Test Performed by Nursing Services Final ??? Glucose, POC 12/07/2019 229* 70 - 100 mg/dL Final ??? Tech ID 12/07/2019 [id number] Final ??? HN LAB POC COMMENT (GLUCOSE) 12/07/2019 Test Performed by Nursing Services Final ??? Glucose, POC 12/07/2019 192* 70 - 100 mg/dL Final ??? Tech ID 12/07/2019 [id number] Final ??? HN LAB POC COMMENT (GLUCOSE) 12/07/2019 Test Performed by Nursing Services Final ??? Glucose, POC 12/07/2019 185* 70 - 100 mg/dL Final ??? Tech ID 12/07/2019 [id number] Final ??? HN LAB POC COMMENT (GLUCOSE) 12/07/2019 Test Performed by Nursing Services Final ??? Glucose, POC 12/07/2019 261* 70 - 100 mg/dL Final ??? Tech ID 12/07/2019 [id number] Final ??? HN LAB POC COMMENT (GLUCOSE) 12/07/2019 Test Performed by Nursing Services Final ??? Glucose, POC 12/07/2019 190* 70 - 100 mg/dL Final ??? Tech ID 12/07/2019 [id number] Final ??? HN LAB POC COMMENT (GLUCOSE) 12/07/2019 Test Performed by Nursing Services Final ??? Glucose, POC 12/07/2019 212* 70 - 100 mg/dL Final ??? Tech ID 12/07/2019 [id number] Final ??? HN LAB POC COMMENT (GLUCOSE) 12/07/2019 Test Performed by Nursing Services Final ??? WBC 12/08/2019 7.27 4.00 - 10.40 K/cmm Final ??? RBC 12/08/2019 3.74* 4.36 - 5.78 M/cmm Final ??? Hemoglobin 12/08/2019 11.0* 13.8 - 17.3 gm/dL Final ??? HCT 12/08/2019 32.5* 39.5 - 50.2 % Final ??? MCV 12/08/2019 87 81 - 95 fl Final ??? MCH 12/08/2019 29.4 27.6 - 33.0 pg Final ??? MCHC 12/08/2019 33.8 32.8 - 36.4 gm/dL Final ? ? RDW-CV 12/08/2019 12.7 <14.2 % Final ? ? RDW-SD 12/08/2019 40.0 <46.0 fl Final ??? PLT 12/08/2019 139* 141 - 377 K/cmm Final ??? MPV 12/08/2019 11.4 9.5 - 12.7 fl Final ??? Sodium 12/08/2019 139 136 - 145 mEq/L Final ??? Potassium 12/08/2019 4.4 3.5 - 5.0 mEq/L Final ??? Chloride 12/08/2019 103 96 - 110 mEq/L Final ??? CO2 Total 12/08/2019 24 22 - 32 mEq/L Final ??? BUN 12/08/2019 38* 10 - 26 mg/dL Final ??? Creatinine 12/08/2019 2.15* 0.66 - 1.25 mg/dL Final ? ? eGFR 12/08/2019 31* >60 mL/min/1.73m2 Final eGFR calculated using CKD-EPI equation for non- Americans. Multiply eGFR by 1.16 for AfricanAmerican patients. ??? Glucose 12/08/2019 240* 70 - 100 mg/dL Final PSA: Lab Results Component Value Date PSA 1.8 02/15/2013 BMP: Lab Results Component Value Date NA 139 12/08/2019 K 4.4 12/08/2019 CL 103 12/08/2019 CO2 24 12/08/2019 BUN 38 (H) 12/08/2019 CREATININE 2.15 (H) 12/08/2019 Assessment / Plan: 1. Erectile dysfunction, unspecified erectile dysfunction type 2. Benign prostatic hyperplasia with urinary frequency He has done well with the implant. [...] 1 [facility], Level 2 [place] [address] (Wo rk) Scheduled Orders Name Type Priority Associated Diagnoses Order S chedule PSA TOTAL, DIAGNOSTIC Lab Routine Erectile dysfunctio n, Expected: 05/18/2021 unspecified erectile (Approx imate), Expires: dysfunction type 05/17/2022 documented as of this encounter Visit Diagnoses Diagnosis Erectile dysfunction, unspecified erecti le dysfunction type - Primary Benign prostatic hyperplasia with urinar y frequency documented in this encounter Care Teams And Drying Supervisor Cooking Casing Relationship Specialty Start Date End Date Priscilla Robert MD PCP - General 11/30/[address] [place] [phone] documented as of this encounter
--- OUTSIDE RECORDS SUMMARY | 2021-10-14 08:48 | XMS_ITS | Encounter Summary ---
:1950 Author Organization [facility] Address [address] [place] [address] Care Team Providers Name Role Phone None, Provider Primary Care Provider Unavailable Reason for Visit Reason Onset Date Comments Appointment Related 09/20/2017 Encounter Details Date Type Department Care Team Description 09/20/2017 Telephone [facility] Nacho Barrow ntment Related Urology - Medical MD Anoop Office Building [address] [place] [address], [address] [place], [place] [address] [place] [address] [phone] (Wo rk) Social History Tobacco Use [...] 1 Cap by mouth 90 Cap 0 09/21/2017 10/19/2017 capsule daily. documented in this encounter Miscellaneous Notes Telephone Encounter - Ligia Gannie - 09/20/2017 9729 EDT Pt had LM saying he thought he was due for an annual f/u and I said he was and he didn't realize he had an appt back in June. We set up an appt for 10/19/17 and I am faxing his PSA order to [facility] for him to have it drawn there per his request. He is also requesting a refillof his flomax at this time. documented in this encounter Plan of Treatment Upcoming Encounters Date Type Specialty Care Team Description 10/27/2021 Telemedicine Nephrology Rebekah Miller MD 1 [facility], Level 2 [place] [address] (Wo rk) documented as of this encounter Visit Diagnoses Not on filedocumented in this encounter Discontinued Medications Medication Sig Discontinue Reason Start Date End Date tamsulosin (FLOMAX) 0.4 Take 1 Cap by mouth Reorder 10/09/2016 09/21/2017 mg capsule daily. documented as of this encounter Care Teams Quality Assurance Supervisor Body Relationship Specialty Start Date End Date None, Provider PCP - General 07/03/16 11/29/19 documented as of this encounter
--- OUTSIDE RECORDS SUMMARY | 2021-10-14 08:48 | XMS_ITS | Encounter Summary ---
:1950 Author Organization [facility] Address [address] [place] [address] Care Team Providers Name Role Phone None, Provider Primary Care Provider Unavailable Encounter Details Date Type Department Care Team Description 06/21/2017 Orders Only [facility] Nacho Barrow w [facility] urinary Urology - Medical MD Anoop obstruction (Primary Office Building [address] [place] [address]) 7[address] [facility] [address] [place] [address] [place], [place] [address] (Wo rk) Social History Tobacco [...] [facility], Level 2 [place], [place] [address] (Wo rk) documented as of this encounter Visit Diagnoses Diagnosis BPH with urinary obstruction - Primary Hypertrophy of prostate with urinary obs truction and other lower urinary tract symptoms (LUTS) documented in this encounter Care Teams Meeting Facilitator Relationship Specialty Start Date End Date None, Provider PCP - General 07/03/16 11/29/19 documented as of this encounter
--- OUTSIDE RECORDS SUMMARY | 2021-10-14 08:48 | XMS_ITS | Encounter Summary ---
:1950 Author Organization [facility] Address [address] [place] [address] Care Team Providers Name Role Phone None, Provider Primary Care Provider Unavailable Encounter Details Date Type Department Care Team Description 01/19/2018 Hospital Encounter [facility] Unknown, Provider, [facility] [address] [facility] [phone] [place] [address] (Work) [phone] Social History Tobacco Use Types Packs/Day Years [...] making decisions? documented as of this encounter Medications at Time of Discharge Medication Sig Dispensed Refills Start Date End Date amlodipine (NORVASC) 5 mg Take 10 mg by mouth 0 tablet daily. Reported on 07/06/2016 aspirin chewable 81 mg Take 1 Tab by mouth 1 Tab 0 03/29 tablet daily. Takes in am atorvastatin (LIPITOR) 10 Take 10 mg by mouth 0 mg tablet daily. clotrimazole-betamethason Apply to affected 1 Tube 0 e (LOTRISONE) cream area twice daily as needed. glipiZIDE (GLUCOTROL) 10 Take 10 mg by mouth 0 mg tablet daily. metFORMIN (GLUCOPHAGE) Take 1,000 mg by 0 1,000 mg tablet mouth 2 times daily. lisinopril (PRINIVIL, Take 20 mg by mouth 0 12/08/2019 ZESTRIL) 20 mg tablet daily. Takes in am sildenafil citrate Take 1 Tab by mouth 30 Tab 11 10/20/19 18 10/24/2019 (VIAGRA) 100 mg tablet as needed for Erectile Dysfunction. tamsulosin (FLOMAX) 0.4 Take 1 Cap by mouth 90 Cap 0 10/24/2019 mg capsule daily. documented as of this encounter Discharge Disposition Disposition Code Departure Means Destination Home or Self Nursing Home documented in this encounter Plan of Treatment Upcoming Encounters Date Type Specialty Care Team Description 10/27/2021 Telemedicine Nephrology Rebekah Miller MD 1 [facility], Level 2 [place], [place] [address] (Wo rk) documented as of this encounter Visit Diagnoses Not on filedocumented in this encounter Care Teams Farmworker Fur Relationship Specialty Start Date End Date None, Provider PCP - General 07/03/16 11/29/19 documented as of this encounter
--- OUTSIDE RECORDS SUMMARY | 2021-10-14 08:48 | XMS_ITS | Encounter Summary ---
:1950 Author Organization [facility] Address [address] [place] [address] Care Team Providers Name Role Phone Brenden Salcedo MD Primary Care Provider Reason for Visit Reason Onset Date Comments Labs Only 04/12/2015 Encounter Details Date Type Department Care Team Description 04/12/2015 Orders Only [facility] Nacoh Barrow non-nodular Urology - Medical MD Anoop prostatic hyperplasia Office Building [address] [facility] lower urinary [address] [place] [address] tract symptoms [address] [facility] (Primary Dx) [place] [address] [place], [place] [address] (Wo rk) Social History Tobacco [...] 10/27/2021 Telemedicine Nephrology Rebekah Miller MD 1 [facility], Level 2 [place], [place] [address] (Wo rk) documented as of this encounter Visit Diagnoses Diagnosis Benign non-nodular prostatic hyperplasia without lower urinary tract symptoms - Primary documented in this encounter Care Teams Gravel Roofer Relationship Specialty Start Date End Date Brenden Salcedo MD PCP - General 03/21/14 07/02/16 documented as of this encounter
--- OUTSIDE RECORDS SUMMARY | 2021-10-14 08:48 | XMS_ITS | Encounter Summary ---
:1950 Author Organization [facility] Address [address] [place] [address] Care Team Providers Name Role Phone None, Provider Primary Care Provider Unavailable Encounter Details Date Type Department Care Team Description 11/17/2019 Hospital Encounter [facility] Pre-Surgical Testing [address] [place] [address] Social History Tobacco Use Types Packs/Day Years [...] - - Weight 122.5 kg (270 lb) 11/17/2019 1324 EDT Height 182.9 cm (6') 11/17/2019 1324 EDT Body Mass Index 36.62 11/17/2019 1324 EDT documented in this encounter Functional Status [...] Sig Dispensed Refills Start Date End Date acetaminophen (TYLENOL) Take 2 Tabs by mouth 0 325 mg tablet every 4 hours as needed for Pain. amlodipine (NORVASC) 5 mg Take 10 mg by mouth 0 tablet daily. Reported on 07/06/2016 aspirin chewable 81 mg Take 1 Tab by mouth 1 Tab 0 03/29 tablet daily. Takes in am atorvastatin (LIPITOR) 10 Take 10 mg by mouth 0 mg tablet daily. clotrimazole-betamethason Apply to affected 1 Tube 0 e (LOTRISONE) cream area twice daily as needed. docusate sodium (COLACE) Take 1 Cap by mouth 0 100 mg capsule 2 times daily as needed for Constipation. glipiZIDE (GLUCOTROL) 10 Take 10 mg by mouth 0 mg tablet daily. metFORMIN (GLUCOPHAGE) Take 1,000 mg by 0 1,000 mg tablet mouth 2 times daily. SITagliptin (JANUVIA) 100 Take 25 mg by mouth 0 mg tablet daily. Take in am cephALEXin (KEFLEX) 500 Take 1 Cap by mouth 14 Cap 0 01/202012/15/2019 mg capsule 2 times daily for 7 days. lisinopril (PRINIVIL, Take 20 mg by mouth 0 12/08/2019 ZESTRIL) 20 mg tablet daily. Takes in am sildenafil citrate Take 1 Tab by mouth 30 Tab 11 10/24/19 20 05/20/2021 (VIAGRA) 100 mg tablet as needed for Erectile Dysfunction. tamsulosin (FLOMAX) 0.4 Take 1 Cap by mouth 90 Cap 0 10/04/2020 mg capsule daily. documented as of this encounter Discharge Disposition Disposition Code Departure Means Destination Home or Self Care documented in this encounter OR Notes Preprocedure Instructions - Prabha Hoyos RN - 11/17/2019 1400 EDT Avery Padilla has been instructed as follows regarding medication administration for the day of the scheduled procedure. Date of Surgery: 12/07/19 Instructions for Taking Medications Day of Surgery Medication Sig Last Dose Hold DOS Take DOS amlodipine (NORVASC) 5 mg tablet Take 5 mg by mouth daily. Reported on 07/06/2016 12/06/19 aspirin chewable 81 mg tablet Take 1 Tab by mouth daily. Takes in am Yes atorvastatin (LIPITOR) 10 mg tablet Take 10 mg by mouth daily. Yes clotrimazole-betamethasone (LOTRISONE) cream Apply to affected area twice daily as needed. Not using glipiZIDE (GLUCOTROL) 10 mg tablet Take 10 mg by mouth daily. 12/06/19 lisinopril (PRINIVIL, ZESTRIL) 20 mg tablet Take 20 mg by mouth daily. Takes in am 12/05/19 am metFORMIN (GLUCOPHAGE) 1,000 mg tablet Take 1,000 mg by mouth 2 times daily. 12/06/19 sildenafil citrate (VIAGRA) 100 mg tablet Take 1 Tab by mouth as needed for Erectile Dysfunction. Isnot taking at this time SITagliptin (JANUVIA) 100 mg tablet Take 100 mg by mouth daily. Take in am 12/06/19 am tamsulosin (FLOMAX) 0.4 mg capsule Take 1 Cap by mouth daily. Yes documented in this encounter Miscellaneous Notes PAT Note - Prabha Hoyos RN - 11/17/2019 1400 EDT COVID 19 Screening Perioperative at time of PAT Please document by exception (only check those that apply). Have you had any of the following symptoms recently? No Yes Chronic ? Cough Shortness of breath or difficulty breathing Fever Chills Fatigue Muscle or body aches Severe Headache New loss of taste or smell Sore throat Congestion or runny nose Rash Nausea, vomiting, or diarrhea (rare in adults. More common in children) Please elaborate if yes: If a chronic symptom is reported use your judgement if an anesthesia review is needed. Have you been in close contact with someone who has been diagnosed with Covid 19? No (close contact, within 6 feet of any person known to have Coronavirus in the past 14 days) If past COVID + test results in chart: ??? Complete call, Place for Anesthesia Review ??? Do not give COVID+ DOS arrival instructions unless anes review deems necessary Negative COVID screen: Please file negative COVID screening under a progress note Negative screening is no symptoms or patient reporting a chronic symptom that does not need an anesthesia review Positive COVID screen: Patient answers yes to the question(s) and it is not a chronic symptom RN to flag this chart for anesthesia review and complete call Please file positive COVID screening under a PAT note If patient develops any of these symptoms between now and their surgery date instruct them to call us back at [phone] to report symptoms (If patient is in Surgical Admissions and answers yes, please notify Surgery and Anesthesia team). Follow proper precautions- yellow mask to patient/family. [place]: Visitor Policy: OP- one non-sick escort in waiting room, no visitors/escort in PreOp, one visitor in PACU for 10 mins at end of recovery Exceptions: Child-1 parent, special needs- 1 caregiver For safety concerns on ride home: second parent or caregiver may come to hospital but will have to wait in cell phone lot IP- One non-sick visitor/escort in waiting room, no visitors/escort in PreOp, one visitor in PACU for 10 mins at end of recovery. One designated visitor is allowed to visit the patient on the in patient unit. Pediatric patient: ??? Both parents can come with child DOS, one is allowed with child in PreOp/PACU, one has to wait in the waiting room ??? Due to COVID 19 no parents are allowed to go back to OR. ??? Explain IV/Mask induction. IV or mask will be available for pedi patients who are asymptomatic and test COVID negative. ??? If parent declines or no test results, Pt will get IV in PreOp, except PE tubes. For State tracking purposes, the parents of these children will be asked to consent to having their child COVID tested under anesthesia. ??? Unsedated children will be allowed one parents in the OR room for support. ??? RN to provide education on IV's and request Emla to be placed (RX from PCP) prior to coming in with them. ? ? Patient > 1 yo: Emla takes one hour to work, place quarter size amount on 4 places ? top ofhands and inner elbow, cover with tegaderm or saran wrap. Children under age of 16 y.o. are not permitted. Only ADA service animals are permitted into the hospital. All other animals, including previously approved therapy/support animals, are not allowed at this time. (No animals will be allowed into Preop,OR, or PACU) Visitor Policy Lena [place]: - One non-sick escort/visitor in waiting room, no visitors/escort in PeriOp - Same exceptions apply as main campus: children and special needs - Visitors/rides home that are not in waiting room should be within 15 mins away - Visitors must have mask for pickup documented in this encounter Plan of Treatment Upcoming Encounters Date Type Specialty Care Team Description 10/27/2021 Telemedicine Nephrology Rebekah Miller MD 1 [facility], [address] [place], [place] [phone] (Wo rk) documented as of this encounter Visit Diagnoses Not on filedocumented in this encounter Historical Medications This list may reflect changes made after this encounter. Medication Sig Dispensed Refills Start Date End Date SITagliptin (JANUVIA) 100 Take 25 mg by mouth 0 mg tablet daily. Take in am added in this encounter Care Teams Business Leader Relationship Specialty Start Date End Date None, Provider PCP - General 07/03/16 11/29/19 documented as of this encounter
--- OUTSIDE RECORDS SUMMARY | 2021-10-14 08:48 | XMS_ITS | Encounter Summary ---
:1950 Author Organization [facility] Address [address] [place] [id number] Care Team Providers Name Role Phone Brenden Salcedo MD Primary Care Provider Reason for Visit Reason Comments Follow-up 1 year, PSA Encounter Details Date Type Department Care Team Description 05/27/2015 Office Visit [facility] Nacho Barrow arterial insufficiency and corporo-venous occlusive erectile dysfunction (Primary Dx); Urology - Medical MD Anoop BPH with urinary obstruction; Office Building [address] [facility], [place], [place] [address] [place], [place] [address], [place] [address] (Wo rk) Social History Tobacco Use Types Packs/Day Years Used Date Never Smoker Alcohol Use Standard Drinks/Week Comments No 0 (1 standard drink = 0.6 oz pure alcoho l) Sex Assigned at Date Recorded Not on file documented as of this encounter Last Filed Vital Signs Vital Sign Reading Time Taken Comments Blood Pressure 132/78 05/27/2015 0905 EST Pulse - - Temperature - - Respiratory Rate - - Oxygen Saturation - - Inhaled Oxygen Concentration - - Weight 113.4 kg (250 lb) 05/27/2015 0905 EST Height 182.9 cm (6') 05/27/2015 0905 EST Body Mass Index 33.91 05/27/2015 0905 EST documented in this encounter Functional Status Functional [...] making decisions? 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 documented in this encounter Progress Notes Nacho Barrow MD - 05/27/2015 0928 EST Images from the original note were not included. Subjective: Patient ID: Avery Padilla is an [address] Brenden Salcedo has requested that I see Avery Padilla in consultation for Follow-up. HPI He returns today for follow-up of his ED and BPH . He has been on Flomax with excellent tolerance and efficacy. He has treated ED with an implant ( S/P revision 8 years ago) that he supplements with Sildenafil to help with glandular engorgement. He also has intermittent balanitis that he treats with periodic Lotrisone. There is no problem list on file for this patient. Past Medical History Diagnosis Date ??? Diabetes mellitus ??? Hypertension Past Surgical History Procedure Laterality Date ??? Other surgical history 2003 IPP Insertion No family history on file. Social History Substance Use Topics ??? Smoking status: Never Smoker ??? Smokeless tobacco: Not on file ??? Alcohol Use: No Current Outpatient Prescriptions on File Prior to Visit Medication Sig Dispense Refill ??? amlodipine (NORVASC) 5 mg tablet Take 5 mg by mouth daily. Takes in am ??? aspirin chewable 81 mg tablet Take 1 Tab by mouth daily. Takes in am 1 Tab 0 ??? clotrimazole-betamethasone (LOTRISONE) cream Apply to affected area twice daily as needed.. 1 Tube 0 ??? ERGOCALCIFEROL, VITAMIN D2, (VITAMIN D ORAL) Take by mouth. ??? glipiZIDE (GLUCOTROL) 10 mg tablet Take 10 mg by mouth daily. ??? lisinopril (PRINIVIL, ZESTRIL) 20 mg tablet Take 20 mg by mouth daily. Takes in am ??? metFORMIN (GLUCOPHAGE) 1,000 mg tablet Take 1,000 mg by mouth 2 times daily. ??? oxycodone-acetaminophen (PERCOCET) 5-325 mg per tablet Take 1-2 Tabs by mouth every 4 hours as needed for Pain. 50 Tab 0 ??? oxycodone-acetaminophen (PERCOCET) 5-325 mg per tablet Take 2 Tabs by mouth every 4 hours as needed for Pain. 35 Tab 0 ??? sildenafil citrate (VIAGRA) 100 mg tablet Take 1 Tab by mouth as needed for Erectile Dysfunction. 8 Tab 11 ??? simvastatin (ZOCOR) 40 mg tablet Take 40 mg by mouth daily. Takes in am ??? tamsulosin (FLOMAX) 0.4 mg capsule Take 1 Cap by mouth daily 90 Cap 0 No current facility-administered medications on file prior to visit. Allergies Allergen Reactions ??? Demerol [Meperidine] Nausea And Vomiting Review of Systems Constitutional: Negative. Respiratory: Negative. Cardiovascular: Negative. - See HPI Objective: BP 132/78 mmHg Ht 182.9 cm (72) Wt 113.399 kg (250 lb) BMI 33.90 kg/m2 Physical Exam Constitutional: He is oriented to person, place, and time. He appears well- developed and well-nourished. HENT: Head: Normocephalic. Pulmonary/Chest: Effort normal. Abdominal: Soft. Genitourinary: Rectum normal and testes normal. Prostate is enlarged (40 grams benign). Neurological: He is alert and oriented to person, place, and time. He has normal reflexes. Skin: Skin is warm. Psychiatric: He has a normal mood and affect. His behavior is normal. Judgment and thought content normal. Office Visit on 05/27/2015 Component Date Value Ref Range Status ??? Color 05/27/2015 YELLOW Final ??? Clarity, UA 05/27/2015 Clear Final ??? Glucose 05/27/2015 Neg Neg Final ??? Bilirubin 05/27/2015 Neg Neg Final ??? Ketones 05/27/2015 Neg Neg Final ? ? Specific [place] 05/27/2015 <=1.005 1.001 - 1.035 Final ??? Blood 05/27/2015 Neg Neg Final ??? pH 05/27/2015 5.5 4.6 - 8.0 Final ??? Protein 05/27/2015 Neg Neg Final ??? Urobilinogen 05/27/2015 0.2 0.2 - 1.0 E.U./dl Final ??? Nitrite 05/27/2015 Neg Neg Final ??? Leuk Esterase 05/27/2015 Neg Neg Final ??? Tech ID 05/27/2015 [id number] Final Test performed at [facility] Urology ??? Bladder Scan 05/27/2015 95ml Final PSA: Lab Results Component Value Date PSA 1.8 02/15/2013 BMP: No results found for: NA, K, CL, CO2, BUN, CREATININE, CALCIUM, CALCCA, MG, PHOS, LABALBU Assessment / Plan: 1. Combined arterial insufficiency and corporo-venous occlusive erectile dysfunction 2. BPH with urinary obstruction He has done well. He will return in 1 year. Continue on the Flomax and Sildenafil. Continue the Lotrisone No orders of the defined types were placed in this encounter. Nacho Barrow MD documented in this encounter Plan of Treatment Upcoming Encounters Date Type Specialty Care Team Description 10/27/2021 Telemedicine Nephrology Rebekah Miller MD [facility], [address] 2 [place], [place] [phone] (Wo rk) documented as of this encounter Procedures Procedure Name Priority Date/Time Associated Diagnosis Comme nts POCT URINE Routine 05/27/2015 9:10 EST BPH with urinary Resu lts for this DIPSTICK, CLINITEK obstruction procedure are in the results section. UROLOGY BLADDER Routine 05/27/2015 9:05 EST BPH with urinary R esults for this SCAN obstruction procedure are i n the results section. documented in this encounter Results POCT URINE DIPSTICK (05/27/2015 9:10 EST) Color YELLOW [facility] Clarity, UA Clear [facility] Glucose Neg Neg [facility] Bilirubin Neg Neg [facility] Ketones Neg Neg [facility] Specific [place] <=1.005 1.001 - 1.035 [facility] Blood Neg Neg [facility] pH 5.5 4.6 - 8.0 [facility] Protein Neg Neg [facility] Urobilinogen 0.2 0.2 - 1.0 [facility] Nitrite Neg Neg [facility] Leuk Esterase Neg [facility] LABORATORY billing and accounting staff assistant ID [id number]: [facility] Test performed at [facility] Urology Specimen Urine (substance) - Urine Performing Organization Address City/State/ZIP Code Phon e Number [facility] [address] [place] [address] SERVICES UROLOGY BLADDER SCAN (05/27/2015 9:05 EST) Pathologist Sig nature Bladder Scan 95ml POINT OF CARE Specimen Urine (substance) Performing Organization Address City/State/ZIP Code [facility]on e Number 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 Medication Sig Dispensed Refills Start Date End Date atorvastatin (LIPITOR) 10 Take 10 mg by mouth 0 mg tablet daily. valsartan (DIOVAN) 80 mg Take 80 mg by mouth 0 10/19/2017 tablet daily. Reported on 07/06/2016 added in this encounter Care Teams Sociology Adjunct Instructor Relationship Specialty Start Date End Date Brenden Salcedo MD PCP - General 03/21/14 07/02/16 documented as of this encounter
--- OUTSIDE RECORDS SUMMARY | 2021-10-14 08:48 | XMS_ITS | Encounter Summary ---
:1950 Author Organization [facility] Address [address] [place] [address] Care Team Providers Name Role Phone Priscilla Robert MD Primary Care Provider Reason for Visit Reason Onset Date Comments Appointment Related 06/21/2020 Encounter Details Date Type Department Care Team Description 06/21/2020 Telephone [facility] Unknown, Provider, Maria Luisa ointment Related Nephrology - S Prosp ect [address] [place] [address] [phone] Social History Tobacco Use Types Packs/Day Years [...] this encounter Miscellaneous Notes Telephone Encounter - Miguel Bartlettey - 06/21/2020 1215 EDT LMOM looking to schedule NPV apt. Please assign to referral. documented in this encounter Plan of Treatment Upcoming Encounters Date Type Specialty Care Team Description 10/27/2021 Telemedicine Nephrology Rebekah Miller MD 1 [facility], [address] [place], [place] [phone] (Wo rk) documented as of this encounter Visit Diagnoses Not on filedocumented in this encounter Additional Health Concerns Infection Onset Date Last Indicated Resolved Time [facility] [facility] 01/30/2021 01/30/2021 documented as of this encounter Care Teams Salesperson Pets [employer] Pet Supplies Relationship Specialty Start Date End Date Priscilla Robert MD PCP - General 11/30/19 [address] [place] [phone] documented as of this encounter
--- OUTSIDE RECORDS SUMMARY | 2021-10-14 08:48 | XMS_ITS | Encounter Summary ---
:1950 Author Organization [facility] Address [address] [place] [address] Care Team Providers Name Role Phone Priscilla Robert MD Primary Care Provider Reason for Visit Reason Onset Date Comments Discuss Surgery 12/06/2019 Encounter Details Date Type Department Care Team Description 12/06/2019 Telephone [facility] Nacho Barrow, Discuss Surgery Urology - Medical Office Building [address] [place] [address], [address], [address] [place], [place] [id number] [place] [address] [phone] (Wo rk) Social History Tobacco Use [...] this encounter Miscellaneous Notes Telephone Encounter - Nicole Katz - 12/06/2019 0909 EDT Called pt re: surgery on 12/[address] Barrow Check in time 645am [facility] 3rd fl reg No food after midnight, no clear liquids after 530am Pt has been quarantining as instructed. documented in this encounter Plan of Treatment Upcoming Encounters Date Type Specialty Care Team Description 10/27/2021 Telemedicine Nephrology Rebekah Miller MD 1 [facility], [address] [place], [place] [phone] (Wo rk) documented as of this encounter Visit Diagnoses Not on filedocumented in this encounter Care Teams Glue Mill Operator Relationship Specialty Start Date End Date Priscilla Robert MD PCP - General 11/30/19 [address] [place] [address] documented as of this encounter
--- OUTSIDE RECORDS SUMMARY | 2021-10-14 08:48 | XMS_ITS | Encounter Summary ---
:[address] [facility] Address [address] [place] [address] Care Team Providers Name Role Phone Priscilla Robert MD Primary Care Provider Reason for Visit Auth/Cert Specialty Diagnoses / Procedures Referred By Contact Refer red To Contact Diagnoses Erectile dysfunction, unspecified erectile dysfunction type Procedures DE REPLACE,INFLATABLE PENILE PROSTHESIS Remove and replace penile implant- AMS Referral ID Status Reason Start Date Expiration Date Visits Requ ested Visits Authorized [id number] 1 1 Encounter Details Date Type Department Care Team Description 12/07/2019 Surgery [facility] OR Nacho Barrow Remove and replace [address] Rebekah Davalos MD penile implant- AMS [place], [place] [id number] [place] [address] [[id number] (CPT??)] [phone] [facility], [address] [place] [address] (Wo rk) Surgery Details Date/Time Status Location OR Service Patient Case Class Case Tr auma Class Type Case? 12/07/19 0825 Posted [facility] OR [facility] Urology Extended H - Elective Stay Panel 1 Procedure LRB Anes Op Region Wound Class Commen ts Remove and replace N/A Patient Choice Penis Class II/ Fahad an penile implant- AMS Contaminated Surgeon Surgeon Role Service Panel Christina Shaw MD Resident - Assisting Urology 1 Nacho Barrow MD Primary Urology 1 Special Needs [place] Sci Rep: Ashkan Vasquez: Social History Tobacco Use Types Packs/Day Years [...] / COVID-19? documented as of this encounter Last Filed Vital Signs Vital Sign Reading Time Taken Comments Blood Pressure 170/107 12/07/2019 0814 EDT Pulse 108 12/07/2019 0814 EDT Temperature 37.1 ??C (98.8 ??F) 12/07/2019 07 EDT Respiratory Rate 18 12/07/2019724 EDT Oxygen Saturation - - Inhaled Oxygen Concentration - - Weight 122 kg (268 lb 15.4 oz) 12/07/2019 07 EDT Height 182.9 cm (6') 12/07/2019 07 EDT Body Mass Index 36.48 12/07/2019 0725 EDT documented in this encounter Functional Status [...] or older) documented as of this encounter Discharge Summaries Yohannes Emery MD - 12/08/2019 1035 EDT Surgery Discharge Summary Primary Care Provider: Priscilla Robert Attending Physician: Nacho Barrow,* Admit Date: 12/07/2019 Discharge Date: 12/08/2019 Disposition: Home or self care Problems and Procedures Admitting Diagnosis: Erectile dysfunction, failed IPP Principal/Final Diagnosis: Same Additional Problems Managed in the Hospital Active Hospital Problems Diagnosis Date Noted ??? *Erectile dysfunction 10/24/2019 Added automatically from request for surgery [id number] Resolved Hospital Problems No resolved problems to display. Principal Procedure: Removal and replacement of IPP Date: 12/07/2019 Secondary Procedures: none Hospital Course Avery Padilla is a 69 y.o. male with history of ED, who underwemt IPP placement x2 in the past, and his last IPP failed, so he underwent Removal and replacement of IPP on 12/07/2019. On POD#1 he wasrecovering appropriately at this time. Pain was well controlled, HDS, afebrile, ambulating without difficulty. His creatinine was found to be elevated on laboratory evaluation, his Lisinopril was held and he will follow up with his PCP for recheck in 1 week. Rose catheter was removed in the AM, and patient voided well with low PVRs. He was deemed appropriate for discharge home with Follow up with Dr. Barrow in 10 days. He was discharge home on one week of Keflex. Allergies and Immunizations Allergies Allergen Reactions ??? Demerol [Meperidine] Nausea And Vomiting There is no immunization history on file for this patient. Transition of Care Plans Condition at Discharge Good Assessment at Discharge Vital signs: Patient Vitals for the past 12 hrs: BP Pulse Heart Rate Resp Temp SpO2 O2 Flow Rate (L/min) O2 Device 12/07/19 1215 110/60 ??? 73 BPM 15 ??? 100 % ? 12/07/19 1202 115/66 ??? 69 BPM 18 36.1 ??C (97 ??F) 100 % 5 l/min ??? 12/07/19 0814 (!) 170/107 (!) 108 ? 12/07/19 0725 (!) 189/90 (!) 108 ??? 18 37.1 ??C (98.8 ??F) ? None Results Pending at Discharge Test results still pending from this admission None Last Lab Results at Discharge BUN: Lab Results Component Value Date BUN 38 (H) 12/08/2019 Creatinine: Lab Results Component Value Date CREATININE 2.15 (H) 12/08/2019 CBC: Lab Results Component Value Date WBC 7.27 12/08/2019 RBC 3.74 (L) 12/08/2019 HGB 11.0 (L) 12/08/2019 HCT 32.5 (L) 12/08/2019 MCV 87 12/08/2019 MCH 29.4 12/08/2019 MCHC 33.8 12/08/2019 PLT 139 (L) 12/08/2019 Electrolytes: Lab Results Component Value Date NA 139 12/08/2019 K 4.4 12/08/2019 CL 103 12/08/2019 CO2 24 12/08/2019 HGB: Lab Results Component Value Date HGB 11.0 (L) 12/08/2019 Discharge Follow Up Upcoming Appointments Dec 18, 2019 10:15 Post Op Visit with Nacho Barrow MD [facility] U[facility] - Medical Office Building (--) [address] [place] [address], [place] [phone] YOHANNES EMERY MD 12/08/2019 10:35 documented in this encounter Discharge Instructions Discharge Instr - AVS First Yohannes Canas MD - 12/08/2019 9:20 EDT Diet: Resume diet as before surgery. Activity: No heavy lifting (more than 20 lb) or strenuous exercise x 4-6 weeks May use stairs Driving: No driving while taking narcotic pain medication Skin/Wound Care: Resume normal skin care. Change drain site dressing daily or as needed until drainage stops Daily rose catheter care Bathing: May shower after 48 hours No bath for 1 week Symptoms to Call Your Doctor About: Chest pain (angina) Dizziness or fainting Decreased urine output Fever greater than 101.5 or chills Increased or new pain Nausea or vomiting Shortness of breath or rapid breathing Appointments: Follow-up in the office with Future Appointments Date Time Provider Department Center 12/18/2019 10:15 Nacho Barrow MD [facility] U[facility] None Please follow up with your Primary Care Provider in one week with repeat laboratory work. Please call their clinic to confirm this appointment. [facility] Urology Clinic: documented in this encounter Medications at Time of Discharge [...] capsule 2 times daily for 7 days. sildenafil citrate Take 1 Tab by mouth 30 Tab 11 10/24/19 20 05/20/2021 (VIAGRA) 100 mg tablet as needed for Erectile Dysfunction. tamsulosin (FLOMAX) 0.4 Take 1 Cap by mouth 90 Cap 0 10/04/2020 mg capsule daily. documented as of this encounter Ordered Prescriptions Prescription Sig Dispensed Refills Start Date End Date docusate sodium (COLACE) Take 1 Cap by mouth 0 100 mg capsule 2 times daily as needed for Constipation. acetaminophen (TYLENOL) Take 2 Tabs by 0 12/08/19 20 325 mg tablet mouth every 4 hours as needed for Pain. cephALEXin (KEFLEX) 500 mg Take 1 Cap by mouth 14 Cap 0 12/08/2019 12/15/2019 capsule 2 times daily for 7 days. documented in this encounter Discharge Disposition Disposition Code Departure Means Destination Home or Self [facility] documented in this encounter Progress Notes Cal Minor MD - 12/08/2019 0645 EDT Urology Progress Note Dx: Erectile Dysfunction POD # 1 s/p Removal and replacement of IPP 24 hour events: ??? OR for above ??? Afeb HDS ??? Cr 2.15 Subjective/Objective Subjective: Feels well this morning. No flatus. Unsure of his baseline Cr. Denies nausea/vomiting, subjective fevers/chills, and CP/SOB. Objective: Vitals Temp: [36.1 ??C (97 ??F)-38.1 ??C (100.6 ??F)] Heart Rate: [69 BPM-95 BPM] BP: (110-189)/(60-107) SpO2: [91 %-100 %] Intake/Output Summary (Last 24 hours) at 12/08/2019 0645 Last data filed at 12/08/2019 0559 Gross per 24 hour Intake 2783.5 ml Output 2475 ml Net 308.5 ml Exam: Gen: NAD Resp: NL on RA Abdominal: Soft, non-distended, NTTP Back: no CVA tenderness : Rose draining clear yellow. IPP Pump pulled to posterior scrotum. Small posterior scrotal hematoma, not tense or tender, no erythema. Incision dressed and intact. Extremities: WWP Neuro: no gross motor deficits Labs Recent Labs 12/08/19 0412 12/08/19 0413 WBC -- 7.27 HGB -- 11.0* PLT -- 139* CREATININE 2.15* -- Assessment/Plan Assessment: Pt is a 69 y.o. male with history of ED, who underwemt IPP placement x2 in the past, and his last IPP failed, so he underwent Removal and replacement of IPP on 12/07/2019. He is POD1 and recovering well. Rose removed on 12/08/19. Uncomplicated scrotal hematoma. Plan: ??? Pain: APAP, Oxy IR PO ??? Abx: ancef x 24 hours ??? 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 T2DM: SSI ??? Diet: Cons Carb ??? Rose: removed 06:45 this AM ??? PVR x 2 ??? Activity as tolerated ??? Anticoagulation: Hep BID Dispo Planning ??? ANTHONY: today ??? Will need to follow up with PCP for renal function ??? F/u with Dr. Barrow in 10 days CAL MINOR MD 12/08/2019 6:45 Weekdays from 7AM-5PM page [phone] with questions. For weekends and all other times, please page through PAS Gem Moreno RN - 12/07/2019 1251 EDT 1215: Per cortex conversation with MD Nelson plan for insulin gtt. At 1300 recheck fsbg if lower thanthe 1200 fsbg, the insulin gtt can be turned off and plan to recheck at 1400 then dose with sliding scale insulin per floor orders. See results for fsbg and MAR for medication start stop times. 1300: FSBG 192, insulin gtt stopped. Unable to document in the MAR. Will recheck at 1400 documented in this encounter H&P Notes Claire Mckeon PA-C - 12/07/2019 0727 EDT The preoperative history and physical which was performed within 30 days of this procedure has been reviewed and the clinically appropriate elements of the physical examination havebeen repeated. There are no changes to the documented history and physical or if so such changes aredocumented below Claire Mckeon PA-C 12/07/2019 7:27 documented in this encounter Nursing Notes Alejandra Ackerman RN - 12/07/2019 0709 EDT Preop Covid DOS screening questionnaire Please document by exception (only check those that apply). Have you had any of the following symptoms recently?NO Yes Chronic ? Cough Shortness of breath or difficulty breathing Fever Chills Fatigue Muscle or body aches Severe Headache New loss of taste or smell Sore throat Congestion or runny nose Rash Nausea, vomiting, or diarrhea (rare in adults. More common in children) Were you covid tested?Yes If yes, have you self-isolated/quarantined since your test?Yes See admission vital signs documentation for admission temperature. documented in this encounter OR Notes OR Surgeon - Nacho Barrow MD - 12/07/2019 0000 EDT OPERATIVE REPORT SERVICE DATE: 12/07/2019 PREOPERATIVE DIAGNOSIS: Failed penile implant. POSTOPERATIVE DIAGNOSIS: Failed penile implant. PROCEDURE: Remove and replace multi-component penile implant. SURGEON: Nacho Barrow MD FACS SHIP'S PILOT: Christina Shaw MD ANESTHESIA: INDICATIONS: The patient has a history 12 years ago of having his second implant placed. He had gradual failure. The examination demonstrated that he had no ability to pump his implant. He understood fully the risk of bleeding, infection and the increased risk of erosion. He elected to proceed as planned. Preoperative blood sugars were 300 with a hemoglobin A1c of 8, but based upon the recent literature, it is felt that it would still be safe to do him. The patient admittedly has not been able to get his blood sugars under better control than that. NARRATIVE: The patient was taken to the operating room and underwent site and ID, WHO checklist part1 was completed. Preoperatively, he received vancomycin, gentamicin and fluconazole IV. He then underwent general endotracheal anesthesia, placed in supine position. Venodynes were placed. A second timeout was performed after the prep as defined below. The prep involved approximately an 8 minute Betadine prep followed by a full ChloraPrep applied twice to the phallus and suprapubic region. The patient subsequently had a Rose catheter placed, a 16-Romansh closed system was utilized. We then placed Ioban. We then made an incision through the Ioban at the penoscrotal junction. We came across the mid scrotum. We found the pump. We were able to cut down into the pump. This was removedwithout difficulty. We were able to follow each tubing and removed each cylinder. Direction was attended to the reservoir. The reservoir was fairly deep on the right side. Despite extensive dissection, I could not get the reservoir, in fact the tubing broke instead. There were numerous adhesions and it is likely that the reservoir itself had been collapsed and caused the involutionof the fibrotic tissue causing it not being able to release. We were able to get down to the level of the end of the reservoir. Based upon a ledger stating that it is safe to leave the reservoir in instead of doing further extensive maneuvers which in fact lead to higher complication rates, we electedto leave the reservoir what was remaining in place. Once we had the entire implant removed, we did a copious irrigation. We used approximately 2 liters of a combination of amphotericin, gentamicin and neomycin. There was no purulent fluid ever noted. I felt that we would simply just be able to change our gloves and gowns, placed a new surface with Ioban on the patient and also we utilized the [place] retractor. We then placed the reservoir in the left upper quadrant. We ended up using a 100 mL reservoir InhibiZone and placed it into the left inguinal area and excellent seating was noted below the rectus muscle. This was properly positioned and after it inflated to 100 mL, there was no spontaneous inflammation. We ensured proper seating of the implant and the pump. We then were able to secure this in place and inflated to 100 mL saline. The patient subsequently had each of the cavernosum measured. They both measured a total of 24 cm inlength. We did elect to use a 24 cm with 0.5 cm rear tip raimann machine operator on this since it was a prior implant. We did notice excellent positioning after we placed it with the Darrin passer proper seating. We were able to also document excellent positioning prior to this by placing 2 Oliver dilators down below, but nevertheless we ended up having an excellent implant after inflation. We then placed the pump into the lower midline portion of the scrotum. We did a Quick Connect straight connector with excellent reinflation and deflation. We left it partially inflated. Each cavernosum was then closed of course with a 3-0 PDS as were multiple layers of the subcutaneous tissue were closed with a 3-0 Vicryl. Weused a 3-0 Prolene on the skin. The patient had estimated blood loss of about 200 mL. The sponge, instrument and needle count were correct at the end of the case. It should be noted that we used copious irrigation throughout this. We did not encounter any obvious biofilm or infection and we felt that our technique would be suitable and at low risk for future. Additionally, we do have a retained reservoir on the right side which is not at all deviating from the standards of current clinical practice.The patient tolerated the procedure well and was returned to recovery room in satisfactory condition. There were no complications. Unless otherwise noted, there were no complications, no blood loss, no cultures obtained, no specimens removed, and no drains retained. Nacho Barrow MD FACS / Confirmation: [id number] Dictation ID: [id number] cc: documented in this encounter Miscellaneous Notes Plan of Care - Michela Butt RN - 12/08/2019 1111 EDT Discharge Note D - Patient ordered for discharge home today. A - Patient given prescriptions, medication information sheets and After Visit Summary. Medication list, follow up appointments and care instructions reviewed with patient. IVs and ID band removed. R - Patient questions reviewed and addressed prior to discharge. Patient denied pain. Patient left the unit in a wheelchair in stable condition. No distress noted. 12/08/2019 12:22 MICHELA BUTT RN lan of Care - German Langley RN - 12/08/2019 0500 EDT Problem: Daily Care Plan Goals Goal: Care Plan Documentation Outcome: Ongoing Problem: High Fall Risk: Goal: Patient will Remain Free of Falls due to Med. Side Effects Outcome: Ongoing Problem: High Fall Risk: Goal: Patient Will Remain Free from Fall-Related Injury Outcome: Ongoing Problem: Sensory: Goal: Ability to compensate for vision loss will be supported Outcome: Ongoing Data: Dressings groin appear intact clean, dry, no drainage beyond dressing borders at start of shift. Denies pain. VSS. Rose in place, voiding. Action: Monitor for pain, I&Os, Vital Signs. Administer Abx per order. Pain middle of night developed, Tylenol PRN given. Response: VSS. Patient sleeping comfortably. Patient wishes to have information privacy with his care plan and treatment. Please do not given any information to his children/family without his express consent. Continue to monitor. GERMAN LANGLEY RN 12/08/2019 5:00 lan of Care - Anand Hidalgo RN - 12/07/2019 1624 EDT Data: Admitted patient to floor via [facility] pacu POD 0 from replacement of IPP, A&OX3 on arrival, intermittent nausea resolved spontaneously. Penile dressing with some strike through drainage, rose with clear yellow output. Action: Resting in bed, admission database completed, IV antibiotics as ordered, oriented patient tounit and plan of care. Response: Resting in bed, call laurent within reach, ambulate when able. ANAND HIDALGO RN 12/07/2019 16:24 1800: Two episodes of small amounts of emesis, zofran given as ordered, per patient with previous surgeries he has experienced nausea. Temp of 38.1 treated with Tylenol, encouraged ambulation as tolerated, IS use, patient understanding of teaching. Brief Op Note - Christina Shaw MD - 12/07/2019 1158 EDT BRIEF OP NOTE Surgeon: Nacho Barrow,* Front Desk Worker: Christina Shaw MD Pre-op diagnosis: Erectile dysfunction, failed IPP Post-op diagnosis: Same Procedure: Removal and replacement of IPP Anesth: General Findings: New 24 and 1/2 cm prosthesis placed, old reservoir couldn't be extracted EBL: minimal IVF: per anesthesia UOP: 780ml Specimen: None Cultures: None Foreign Material Retained: 16 Fr rose, IPP Complications: None Dispo: PACU in Good condition, then floor. Plan: -TOV tomorrow AM -Cefazolin IV for 124 hr, then 500mg PO Keflex for 7 days -F/u with Dr. Barrow in 10 days Christina Shaw MD 11:58 documented in this encounter Plan of Treatment Upcoming Encounters Date Type Specialty Care Team Description 10/27/2021 Telemedicine Nephrology Rebekah Miller MD 1 [facility], [address] [place], [place] [address] (Wo rk) Scheduled Referrals Name Type Priority Associated Diagnoses Order S chedule AMB CONS/FOLLOW UP Outpatient Referral Routine Erectile Ex pected: UROLOGY dysfunction, 12/18/2019 unspecified erectile dysfunction type AMB CONS/FOLLOW UP Outpatient Referral Routine Creatinine elev ation Ordered: PRIMARY CARE 12/08/2019 PHYSICIAN documented as of this encounter Procedures Procedure Name Priority Date/Time Associated Diagnosis Comme nts IMPLANT RECORD - 12/19/2019 12:41 SCANNED EDT IMPLANT RECORD - 12/12/2019 8:42 SCANNED EDT COMPLETE BLOOD COUNT Routine 12/08/2019 4:13 Resu lts for this EDT procedure are i n the results section. BUN Routine 12/08/2019 4:12 Results for this EDT procedure are i n the results section. GLUCOSE, SERUM Routine 12/08/2019 4:12 Results fo r this EDT procedure are i n the results section. CREATININE Routine 12/08/2019 4:12 Results for this EDT procedure are i n the results section. ELECTROLYTES Routine 12/08/2019 4:12 Results for this EDT procedure are i n the results section. POCT GLUCOSE, Routine 12/07/2019 20:54 Results fo r this INTERFACED EDT procedure are i n the results section. POCT GLUCOSE, Routine 12/07/2019 16:14 Results fo r this INTERFACED EDT procedure are i n the results section. POCT GLUCOSE, Routine 12/07/2019 13:57 Results fo r this INTERFACED EDT procedure are i n the results section. POCT GLUCOSE, Routine 12/07/2019 13:00 Results fo r this INTERFACED EDT procedure are i n the results section. POCT GLUCOSE, Routine 12/07/2019 12:07 Results fo r this INTERFACED EDT procedure are i n the results section. POCT GLUCOSE, Routine 12/07/2019 10:55 Results fo r this INTERFACED EDT procedure are i n the results section. POCT GLUCOSE, Routine 12/07/2019 9:53 Results for this INTERFACED EDT procedure are i n the results section. REPLACEMENT, PENILE 12/07/2019 8:37 Erectile PROSTHESIS EDT dysfunction, unspecified erectile dysfunction type Special Needs [place] Sci Rep: Ashkan Sheridan rte: POCT GLUCOSE, INTERFACED Routine 12/07/2019 6:56 EDT Results for this procedure are in the resu lts section. ECG REPORT - SCANNED 11/20/2019 8:57 EDT ECG REPORT - SCANNED 11/17/2019 14:09 EDT documented in this encounter Results (ABNORMAL) COMPLETE BLOOD COUNT (12/08/2019 4:13 EDT) Pathologist Sig nature WBC 7.27 4.00 - 10.40 K/cmm [facility] RBC 3.74 (L) 4.36 - 5.78 M/cmm [facility] Hemoglobin 11.0 (L) 13.8 - 17.3 gm/dL [facility] HCT 32.5 (L) 39.5 - 50.2 % [facility] MCV 87 81 - 95 fl [facility] MCH 29.4 27.6 - 33.0 pg [facility] MCHC 33.8 32.8 - 36.4 gm/dL [facility] RDW-CV 12.7 <14.2 % [facility] RDW-SD 40.0 <46.0 fl [facility] PLT 139 (L) 141 - 377 K/cmm [facility] MPV 11.4 9.5 - 12.7 fl [facility] Specimen Blood - Venous blood (substance) Performing Organization Address City/State/ZIP Code Phon e Number [facility] [address] [place] [phone] SERVICES (ABNORMAL) GLUCOSE, SERUM (12/08/2019 4:12 EDT) Pathologist Sig nature Glucose 240 (H) 70 - 100 mg/dL [facility] ORY SERVICES Specimen Blood - Venous blood (substance) Performing Organization Address [facility]/ZIP [facility] Phon e Number [facility] [address] [place] [address] SERVICES (ABNORMAL) CREATININE (12/08/2019 4:12 EDT) Creatinine 2.15 (H) 0.66 - 1.25 [facility] mg/dL LABORATORY SERVICES eGFR 31 (L)Comment: eGFR >60 [facility] calculated using mL/min/1.73m2 LABORATORY SERVICES CKD-EPI equation for non- Americans. Multiply eGFR by 1.16 for patients. Specimen Blood - Venous blood (substance) Performing Organization Address [facility]/ZIP [facility] Phon e Number [facility] [address] [place] [address] SERVICES (ABNORMAL) BUN (12/08/2019 4:12 EDT) Pathologist Sig nature BUN 38 (H) 10 - 26 mg/dL [facility] RY SERVICES Specimen Blood - Venous blood (substance) Performing Organization Address [facility] Phon e Number [facility] [address] [place] [address] SERVICES ELECTROLYTES (12/08/2019 4:12 EDT) Pathologist Sig nature Sodium 139 136 - 145 mEq/L [facility] SERVICES Potassium 4.4 3.5 - 5.0 mEq/L [facility] Chloride 103 96 - 110 mEq/L [facility] ORY SERVICES CO2 Total 24 22 - 32 mEq/L [facility] RY SERVICES Specimen Blood - Venous blood (substance) Performing Organization Address [facility] Phon e Number [facility] [address] [place] [address] SERVICES (ABNORMAL) POCT GLUCOSE, INTERFACED (12/07/2019 20:54 EDT) Glucose, POC 212 (H) 70 - 100 [facility] mg/dL LABORATORY certified technician ID [id number] [facility] LABORATORY SERVICES HN LAB POC COMMENT Test Performed by [facility] DARSHAN Cifuentes (GLUCOSE) Nursing Services LABORATORY SERVICES Specimen Blood - Capillary blood (substance) Performing Organization Address [facility]/ZIP Code Phon e Number [facility] LABORATORY [address] [place] [address] SERVICES (ABNORMAL) POCT GLUCOSE, INTERFACED (12/07/2019 16:14 EDT) Glucose, POC 190 (H) 70 - 100 [facility] mg/dL LABORATORY certified technician ID [id number] [facility] LABORATORY SERVICES HN LAB POC COMMENT Test Performed by [facility] [employer] R (GLUCOSE) Nursing Services LABORATORY SERVICES Specimen Blood - Capillary blood (substance) Performing Organization Address City/[facility]/ZIP Code Phon e Number [facility] LABORATORY [address] [place] [address] SERVICES (ABNORMAL) POCT GLUCOSE, INTERFACED (12/07/2019 13:57 EDT) Glucose, POC 185 (H) 70 - 100 [facility] mg/dL LABORATORY certified technician ID [id number] [facility] LABORATORY SERVICES HN LAB POC COMMENT Test Performed by [facility] [employer] R (GLUCOSE) Nursing Services LABORATORY SERVICES Specimen Blood - Capillary blood (substance) Performing Organization Address City/[facility]/ZIP Code Phon e Number [facility] LABORATORY [address] [place] [address] SERVICES (ABNORMAL) POCT GLUCOSE, INTERFACED (12/07/2019 13:00 EDT) Glucose, POC 192 (H) 70 - 100 [facility] mg/dL LABORATORY certified technician ID [id number] [facility] LABORATORY SERVICES HN LAB POC COMMENT Test Performed by [facility] [employer] R (GLUCOSE) Nursing Services LABORATORY SERVICES Specimen Blood - Capillary blood (substance) Performing Organization Address City/[facility]/ZIP Code Phon e Number [facility] LABORATORY [address] [place] [address] SERVICES (ABNORMAL) POCT GLUCOSE, INTERFACED (12/07/2019 12:07 EDT) Glucose, POC 229 (H) 70 - 100 [facility] mg/dL LABORATORY certified technician ID [id number] [facility] LABORATORY SERVICES HN LAB POC COMMENT Test Performed by [facility] [employer] R (GLUCOSE) Nursing Services LABORATORY SERVICES Specimen Blood - Capillary blood (substance) Performing Organization Address City/State/ZIP Code Phon e Number [facility] LABORATORY [address] [place] [address] SERVICES (ABNORMAL) POCT GLUCOSE, INTERFACED (12/07/2019 10:55 EDT) Glucose, POC 261 (H) 70 - 100 [facility] mg/dL LABORATORY certified technician ID [id number] [facility] LABORATORY SERVICES HN LAB POC COMMENT Test Performed by [facility] [employer] R (GLUCOSE) Nursing Services LABORATORY SERVICES Specimen Blood - Capillary blood (substance) Performing Organization Address City/State/ZIP Code Phon e Number [facility] LABORATORY [address] [place] [address] SERVICES (ABNORMAL) POCT GLUCOSE, INTERFACED (12/07/2019 9:53 EDT) Glucose, POC 300 (H) 70 - 100 [facility] mg/dL LABORATORY certified technician ID [id number] [facility] LABORATORY SERVICES HN LAB POC COMMENT Test Performed by [facility] [employer] R (GLUCOSE) Nursing Services LABORATORY SERVICES Specimen Blood - Capillary blood (substance) Performing Organization Address [facility] Phon e Number [facility] LABORATORY [address] [place] [address] SERVICES (ABNORMAL) POCT GLUCOSE, INTERFACED (12/07/2019 6:56 EDT) Glucose, POC 326 (H) 70 - 100 [facility] mg/dL LABORATORY certified technician ID [id number] [facility] LABORATORY SERVICES HN LAB POC COMMENT Test Performed by [facility] [employer] R (GLUCOSE) Nursing Services LABORATORY SERVICES Specimen Blood - Capillary blood (substance) Performing Organization Address [facility] Phon e Number [facility] LABORATORY [address] [place] [address] SERVICES documented in this encounter Visit Diagnoses Diagnosis Erectile dysfunction, unspecified erecti le dysfunction type Creatinine elevation Other nonspecific findings on examinatio n of blood Erectile dysfunction, unspecified erecti le dysfunction type documented in this encounter Admitting Diagnoses Diagnosis Erectile dysfunction Impotence of organic origin documented in this encounter Administered Medications Inactive Administered Medications - up to 3 most recent administrations Medication Order MAR Action Action Date Dose Rate Site acetaminophen (TYLENOL) 325 mg tablet 1 dose, Starting on Wed12/07/19 at 1403, Until 11/27 at 1405 acetaminophen (TYLENOL) suppository 650 mg 650 mg, rectal, EVERY 4 HOURS PRN, Starting on 11/27 at 1401, Until Wed12/08/19 at 1329, Pain, Routine acetaminophen (TYLENOL) tablet 650 mg Given 12/08/2019 9:14 EDT 650 mg 650 mg, oral, EVERY 4 HOURS PRN, Starting on Flori 12/07/19 at 1401, Until Wed12/08/19 at 1329, Pain, Routine Given 12/08/2019 0:46 EDT 650 mg Given 12/07/2019 18:04 EDT 650 mg amLODIPine (NORVASC) tablet 10 mg Given 12/08/2019 10:19 EDT 10 mg 10 mg, oral, DAILY, First dose (after last modification) on Wed12/08/19 at 0900, Until Discontinued, Routine aspirin chewable tablet 81 mg Given 12/08/2019 10:19 EDT 81 mg 81 mg, oral, DAILY, First dose on Wed12/08/19 at 0900, Until Discontinued, Routine atorvastatin (LIPITOR) tablet 10 mg Given 12/08/2019 10:19 EDT 10 mg 10 mg, oral, DAILY, First dose on Wed12/08/19 at 0900, Until Discontinued, Routine ceFAZolin in dextrose (iso-os) piggyback 2 Given 12/08/2019 6:43 EDT 2,000 mg g/100 mL 2,000 mg, intravenous, Administer over 30 Minutes, EVERY 8 HOURS, 3 doses, First dose on Wed12/07/19 at 1445, Last dose on Wed12/08/19 at 0700, Type of Therapy: Prophylaxis, Suspected Indication (Select all that apply): Surgical prophylaxis, ID Consult: No, Routine Given 12/07/2019 23:10 EDT 2,000 mg Given 12/07/2019 16:02 EDT 2,000 mg fluCONazole (DIFLUCAN) IVPB 200 mg New Bag 12/07/2019 7:29 EDT 200 mg 200 mg, intravenous, Administer over 1 Hours, PRE-OP ONCE, 1 dose, On Flori 12/07/19 at 0730, STAT, Preprocedure gentamicin (GARAMYCIN) 480 mg in sodium chloride Given 12/07/2019 7:52 EDT 480 mg (NS) 0.9 % 50 mL IVPB 480 mg (rounded from 478 mg = 5 mg/kg ? 95.6 kg Adjusted weight), intravenous, Administer over 30 Minutes, PRE-OP ONCE, 1 dose, On Flori 12/07/19 at 0730, Routine, Preprocedure heparin injection 5,000 Units Given 12/07/2019 20:35 EDT 5,000 Units 5,000 Units, subcutaneous, EVERY 12 HOURS, First dose on Flori 12/07/19 at 2100, Until Discontinued, Routine HYDROmorphone (DILAUDID) tablet 2-4 mg Given 12/08/2019 9:14 EDT 2 mg 2-4 mg, oral, EVERY 4 HOURS PRN, Starting on Flori 12/07/19 at 1426, Until Wed12/08/19 at 1329, Pain, Routine Given 12/08/2019 0:46 EDT 2 mg insulin aspart U-100 (NOVOLOG FLEXPEN) Given 12/07/2019 16:56 ED T 4 Units injection subcutaneous, 3 TIMES DAILY WITH MEALS, First dose (after last modification) on Wed12/07/19 at 1700, Until Discontinued, Routine insulin aspart U-100 (NOVOLOG) injection 7 Given 12/07/2019 8:43 EDT 7 Units Units 7 Units, subcutaneous, ONCE, 1 dose, Starting on Flori 12/07/19 at 0815, Until Flori 12/07/19 at 0843, Preprocedure lactated ringers (LR) infusion New Bag 12/07/2019 10:49 EDT at 30 mL/hr, 30 mL/hr, intravenous, CONTINUOUS, Starting on Flori 12/07/19 at 0730, Until Wed12/08/19 at 1329, Routine, Preprocedure Continued by Anesthesia 12/07/2019 8:50 EDT New Bag 12/07/2019 7:02 EDT 30 mL/hr 30 mL/hr lactated ringers (LR) infusion New Bag 12/08/2019 8:47 EDT 75 mL/hr at 75 mL/hr, intravenous, CONTINUOUS, Starting on Flori 12/07/19 at 1200, Until Wed12/08/19 at 1329, Routine, Recovery (only) New Bag 12/07/2019 19:17 EDT 75 mL/hr lisinopriL (PRINIVIL) tablet 20 mg Given 12/08/2019 10:19 EDT 20 mg 20 mg, oral, DAILY, First dose on Wed12/08/19 at 0900, Until Discontinued, Routine metoCLOPramide (REGLAN) injection 10 mg Given 12/07/2019 12:35 EDT 10 mg 10 mg, intravenous, PRN, 1 dose, Starting on Flori 12/07/19 at 1139, Until Flori 12/07/19 at 1235, Nausea, Routine, Recovery (only) ondansetron (PF) (ZOFRAN) injection 4 mg Given 12/07/2019 12:35 EDT 4 mg 4 mg, intravenous, PRN, 1 dose, Starting on Flori 12/07/19 at 1139, Until Wed12/07/19 at 1235, Nausea, Vomiting, Routine, Recovery (only) ondansetron (PF) (ZOFRAN) injection 4 mg Given 12/07/2019 17:58 EDT 4 mg 4 mg, intravenous, EVERY 4 HOURS PRN, Starting on Wed12/07/19 at 1426, Until Wed12/08/19 at 1329, Nausea, Routine ondansetron (ZOFRAN-ODT) disintegrating tablet 4 mg 4 mg, oral, EVERY 4 HOURS PRN, Starting on Wed12/07/19 at 1426, Until Wed12/08/19 at 1329, Nausea, Routine oxyCODONE (ROXICODONE) immediate release tablet Given 2019 14:05 EDT 5 mg 5-10 mg 5-10 mg, oral, EVERY 30 MINUTES PRN, 2 doses, Starting on Wed12/07/19 at 1139, Until Wed12/07/19 at 1425, Pain, Routine, Recovery (only) promethazine (PHENERGAN) suppository 12. 5 mg 12.5 mg, rectal, EVERY 6 HOURS PRN, Starting on 01/15 at 1426, Until Wed12/08/19 at 1329, Nausea, Routine promethazine (PHENERGAN) tablet 12.5 mg 12.5 mg, oral, EVERY 6 HOURS PRN, Starting on 12/06 at 1426, Until Wed12/08/19 at 1329, Nausea, Routine tamsulosin (FLOMAX) capsule 0.4 mg Given 12/08/2019 10:19 EDT 0.4 mg 0.4 mg, oral, DAILY, First dose on Wed12/07/19 at 2100, Until Discontinued, Routine Given 12/07/2019 20:34 EDT 0.4 mg vancomycin (VANCOCIN) 1,750 mg in dextrose 5% Given 7:11 EDT 1,750 mg (D5W) 500 mL IVPB 1,750 mg (rounded from 1,837.5 mg = 15 m g/kg ? 122.5 kg), intravenous, Administer over 105 Minutes, PRE-OP ONCE, 1 dose, On Wed12/07/19 at 0730, Type of Therapy: Prophylaxis, Suspected Indication (Select all that apply): Surgical prophylaxis, Routine, Preprocedure documented in this encounter Discontinued Medications Medication Sig Discontinue Reason Start Date End Date lisinopril (PRINIVIL, Take 20 mg by mouth 12/08/2019 ZESTRIL) 20 mg tablet daily. Takes in am documented as of this encounter Active and Recently Administered Medications Times are shown in EDT. Scheduled Medication Order 12/06/2019 12/07/2019 12/08/2019 amLODIPine (NORVASC) tablet 10 mg 1019 (Given - Provider: Michela uBtt, VIV) 10 mg, oral, DAILY, First dose (after la st modification) on Wed12/08/19 at 0900, Until Discontinued, Routine aspirin chewable tablet 81 mg 10 19 (Given - Provider: Michela Butt, VIV) 81 mg, oral, DAILY, First dose on 02/15 at 0900, Until Discontinued, Routine atorvastatin (LIPITOR) tablet 10 mg 1019 (Given - Provider: Michela Butt, VIV) 10 mg, oral, DAILY, First dose on 02/15 at 0900, Until Discontinued, Routine ceFAZolin in dextrose (iso-os) piggyback 2 g/100 mL (COMPLET ED) 1602 (Given - Provider: Anand Hidalgo, RN)2310 (Given - Provider: German Langley, VIV) 0643 (Given - Provider: eGrman Langley, VIV) 2,000 mg, intravenous, Administer over 3 0 Minutes, EVERY 8 HOURS, 3 doses, First dose on Wed12/07/19 at 1445, Last dose on Wed12/08/19 at 0700, Type of Therapy: Prophylaxis, Suspected Indication (Select all that apply): Surgical prophylaxis, ID Consult: No, Routine docusate sodium (COLACE) capsule 100 mg 2257 (Not Given - Provider: German Langley RN - Reason: Patient/family refused) 1024 (Not Given - Provider: Michela Butt RN - Reason: Patient/family refused) 100 mg, oral, 2 TIMES DAILY, First dose on Wed12/07/19 at 2100, Until Discontinued, Routine fluCONazole (DIFLUCAN) IVPB 200 mg (COMPLETED) 07 (New Bag - Provider: Alejandra Ackerman RN) 200 mg, intravenous, Administer over 1 H ours, PRE-OP ONCE, 1 dose, Flori 12/07/19 at 0730, STAT, Preprocedure gentamicin (GARAMYCIN) 480 mg in sodium chloride (NS) 0.9 % 50 mL IVPB (COMPLETED) 0752 (Given - Provider: Alejandra Ackerman RN - Comment: compatable c Vanco and Fluconazole) 480 mg (rounded from 478 mg = 5 mg/kg ? 95.6 kg Adjusted weight), intravenous, Administer over 30 Minutes, PRE-OP ONCE, 1 dose, Flori 12/07/19 at 0730, Routine, Preprocedure heparin injection 5,000 Units 203 (Given - Prov ider: German Langley RN) 1024 (Not Given - Provider: Michela Butt RN - Reason: Patient/family refused) 5,000 Units, subcutaneous, EVERY 12 HOUR S, First dose on Wed12/07/19 at 2100, Until Discontinued, Routine insulin aspart U-100 (NOVOLOG FLEXPEN) injection 2258 (Not Given - Provider: German Langley RN - Reason: Order parameters not met) subcutaneous, AT BEDTIME, First dose on Wed12/07/19 at 2100, Until Discontinued insulin aspart U-100 (NOVOLOG FLEXPEN) injection 1656 (Given - Provider: Anand Hidalgo RN) 1025 (Not Given - Provider: Michela odnald RN - Reason: Other - Comment: pt being discharged. Waiting to eat at home)1200 (Canceled Entry - Provider: Batch Job User Admin - Comment: Automatically canceled at discontinue of medication order) subcutaneous, 3 TIMES DAILY WITH MEALS, First dose (after last modification) on Wed12/07/19 at 1700, Until Discontinued insulin aspart U-100 (NOVOLOG) injection 7 Units (COMPLETED) 0843 (Given - Provider: Frances Valentin, VIV) 7 Units, subcutaneous, ONCE, 1 dose, Sta rting Wed12/07/19 at 0815, Until Discontinued, Preprocedure lisinopriL (PRINIVIL) tablet 20 mg 1019 (Given - Provider: Michela Butt, VIV) 20 mg, oral, DAILY, First dose on 02/15 at 0900, Until Discontinued, Routine tamsulosin (FLOMAX) capsule 0.4 mg 2033 (Given - Provider: German Langley, RN) 1019 (Given - Provider: Michela Butt, VIV) 0.4 mg, oral, DAILY, First dose on Flori at 2100, Until Discontinued, Routine vancomycin (VANCOCIN) 1,750 mg in dextrose 5% (D5W) 500 mL I VPB (COMPLETED) 07 (Given - Provider: Alejandra Ackerman RN) 1,750 mg (rounded from 1,837.5 mg = 15 m g/kg ? 122.5 kg), intravenous, Administer over 105 Minutes, PRE-OP ONCE, 1 dose, Flori 12/07/19 at 0730, Type of Therapy: Prophylaxis, Suspected Indication (Select all that apply): Surgical prophylaxis, Routine, Preprocedure Continuous Medication Order 12/06/2019 12/07/2019 12/08/2019 lactated ringers (LR) infusion 0702 (New Bag - Provider: Alejandra Ackerman RN)0850 (Continued by Anesthesia - Provider: Josue Yu CRNA)1049 (New Bag - Provider: Josue Yu CRNA)1212 (Anesthesia Volume Adjustment - Provider: Josue Yu CRNA) at 30 mL/hr, 30 mL/hr, intravenous, CONT INUOUS, Starting Flori 12/07/19 at 0730, Until Wed12/08/19 at 1329, Routine, Preprocedure lactated ringers (LR) infusion 1210 (Con tinued Infusion - Provider: Gem Moreno RN)1917 (New Bag - Provider: Anand Hidalgo RN) 0847 (New Bag - Provider: Bisi Delong RN) at 75 mL/hr, intravenous, CONTINUOUS, St arting Flori 12/07/19 at 1200, Until Wed12/08/19 at 1329, Routine, Recovery (only) PRN Medication Order 12/06/2019 12/07/2019 12/08/2019 acetaminophen (TYLENOL) suppository 650 mg(Linked Group 1) 1405 (See Alternative - Provider: Gem Moreno RN)1804 (See Alternative - Provider: Anand Hidalgo, RN) 0046 (See Alternative - Provider: Silvana Brown RN)0914 (See Alternative - Provider: Hope Pimentel RN) 650 mg, rectal, EVERY 4 HOURS PRN, Start ing Flori 12/07/19 at 1401, Until Wed12/08/19 at 1329, Pain, Routine acetaminophen (TYLENOL) tablet 650 mg(Linked Group 1) 1405 (Given - Provider: Gem Moreno RN)1804 (Given - Provider: Anand Hidalgo RN) 0046 (Given - Provider: Antonette Brown RN)0914 (Given - Provider: Hope Pimentel RN) 650 mg, oral, EVERY 4 HOURS PRN, Startin g Flori 12/07/19 at 1401, Until Wed12/08/19 at 1329, Pain, Routine bisacodyL (DULCOLAX) suppository 10 mg 10 mg, rectal, DAILY PRN, Starting Flori at 1426, Until Wed12/08/19 at 1329, Constipation, Routine dextrose 50 % solution 12.5 g 12.5 g (25 mL), intravenous, PRN, Starti ng Flori 12/07/19 at 1249, Until Wed12/08/19 at 1329, Low Blood Sugar, Routine glucagon injection 1 mg 1 mg, intramuscular, PRN, Starting Flori at 1249, Until Wed12/08/19 at 1329, Low blood sugar, Routine HYDROmorphone (DILAUDID) tablet 2-4 mg 0046 (Given - Provider: Antonette Brown RN)0914 (Given - Provider: Hope Pimentel RN) 2-4 mg, oral, EVERY 4 HOURS PRN, Startin g Flori 12/07/19 at 1426, Until Wed12/08/19 at 1329, Pain, Routine metoCLOPramide (REGLAN) injection 10 mg (COMPLETED) 1235 (Given - Provider: Gem Moreno RN) 10 mg, intravenous, PRN, 1 dose, Startin g Flori 12/07/19 at 1139, Until Discontinued, Nausea, Routine, Recovery (only) ondansetron (PF) (ZOFRAN) injection 4 mg (COMPLETED) 1235 (Given - Provider: Gem Moreno RN) 4 mg, intravenous, PRN, 1 dose, Starting Flori 12/07/19 at 1139, Until Discontinued, Nausea, Vomiting, Routine, Recovery (only) ondansetron (PF) (ZOFRAN) injection 4 mg(Linked Group 2) 1758 (Given - Provider: Anand Hidalgo, RN) 4 mg, intravenous, EVERY 4 HOURS PRN, St arting Flori 12/07/19 at 1426, Until Wed12/08/19 at 1329, Nausea, Routine ondansetron (ZOFRAN-ODT) disintegrating tablet 4 mg(Linked G roup 2) 1758 (See Alternative - Provider: Anand Hidalgo, RN) 4 mg, oral, EVERY 4 HOURS PRN, Starting Flori 12/07/19 at 1426, Until Wed12/08/19 at 1329, Nausea, Routine oxyCODONE (ROXICODONE) immediate release tablet 5-10 mg (CAN CELED) 1405 (Given - Provider: Gem Moreno RN) 5-10 mg, oral, EVERY 30 MINUTES PRN, 2 d oses, Starting Flori 12/07/19 at 1139, Until Flori 12/07/19 at 1425, Pain, Routine, Recovery (only) promethazine (PHENERGAN) suppository 12.5 mg(Linked Group 3) 12.5 mg, rectal, EVERY 6 HOURS PRN, Star ting Flori 12/07/19 at 1426, Until Wed12/08/19 at 1329, Nausea, Routine promethazine (PHENERGAN) tablet 12.5 mg(Linked Group 3) 12.5 mg, oral, EVERY 6 HOURS PRN, Starti ng Flori 12/07/19 at 1426, Until Wed12/08/19 at 1329, Nausea, Routine Linked Groups Order Group 1: acetaminophen (TYLENOL) tablet 650 mgJump to med 650 mg, oral, EVERY 4 HOURS PRN, Startin g Flori 12/07/19 at 1401, Until Wed12/08/19 at 1329, Pain, Routine Or acetaminophen (TYLENOL) suppository 650 mgJump to med 650 mg, rectal, EVERY 4 HOURS PRN, Start ing Flori 12/07/19 at 1401, Until Wed12/08/19 at 1329, Pain, Routine Group 2: ondansetron (PF) (ZOFRAN) injection 4 mgJump to med 4 mg, intravenous, EVERY 4 HOURS PRN, St arting Flori 12/07/19 at 1426, Until Wed12/08/19 at 1329, Nausea, Routine Or ondansetron (ZOFRAN-ODT) disintegrating tablet 4 mgJump to med 4 mg, oral, EVERY 4 HOURS PRN, Starting Flori 12/07/19 at 1426, Until Wed12/08/19 at 1329, Nausea, Routine Group 3: promethazine (PHENERGAN) tablet 12.5 mgJump to med 12.5 mg, oral, EVERY 6 HOURS PRN, Starti ng Flori 12/07/19 at 1426, Until Wed12/08/19 at 1329, Nausea, Routine Or promethazine (PHENERGAN) suppository 12.5 mgJump to med 12.5 mg, rectal, EVERY 6 HOURS PRN, Bigg fajardo Flori 12/07/19 at 1426, Until Wed12/08/19 at 1329, Nausea, Routine documented in this encounter Orders Medications Ordered That Might Not Have Count Last Ord ered Date First Ordered Date Been Administered acetaminophen (TYLENOL) suppository 650 mg 1 12/06 amLODIPine (NORVASC) tablet 5 mg 1 12/07/2019 atropine 0.1 mg/mL syringe 0.5 mg 1 12/07/2019 bisacodyL (DULCOLAX) suppository 10 mg 1 0 dextrose 50 % solution 12.5 g 2 12/07/2019 diphenhydrAMINE (BENADRYL) injection 12.5 1 2019 mg docusate sodium (COLACE) capsule 100 mg 1 12/07/19 20 fentaNYL citrate (PF) injection 25-50 mcg 1 2019 glucagon injection 1 mg 2 12/07/2019 HYDROmorphone (PF) (DILAUDID) 0.5 mg/0.5 1 020 mL syringe 0.3-0.5 mg insulin aspart U-100 (NOVOLOG FLEXPEN) 1 0 injection insulin aspart U-100 (NOVOLOG FLEXPEN) 1 0 injection 12 Units lidocaine (PF) 10 mg/mL (1 %) injection 2 1 2019 mg naloxone (NARCAN) injection 0.2 mg 1 12/07/2019 neomycin-polymyxin B (NEOSPORIN) 40 1 12/07/2019 mg-200,000 unit/mL irrigation solution ondansetron (ZOFRAN-ODT) disintegrating 1 12/07/19 20 tablet 4 mg promethazine (PHENERGAN) suppository 12.5 1 2019 mg promethazine (PHENERGAN) tablet 12.5 mg 1 12/07/19 20 sildenafil citrate (VIAGRA) tablet 100 mg 1 2019 Procedures Count Last Ordered Date First Ordered Date IMPLANT RECORD - SCANNED 2 12/19/2019 020 ECG REPORT - SCANNED 2 11/20/2019 11/17/2019 Transfer Count Last Ordered Date First Ordered Date TEACHING SERVICE 1 12/07/2019 Discharge Count Last Ordered Date First Ordered Date DISCHARGE PATIENT 1 12/08/2019 documented in this encounter Care Teams Steward/Stewardess Third Class Relationship Specialty Start Date End Date Priscilla Robert MD PCP - General 11/30/[address] [place] [phone] documented as of this encounter
--- OUTSIDE RECORDS SUMMARY | 2021-10-14 08:48 | XMS_ITS | Encounter Summary ---
:1950 Author Organization [facility] Address [address] [place] [id number] Care Team Providers Name Role Phone Brenden Salcedo MD Primary Care Provider Reason for Visit Reason Onset Date Comments Medications Refill 06/13/2015 Encounter Details Date Type Department Care Team Description 06/13/2015 Telephone [facility] Nacho Barrow Medic ations Refill Urology - Mikhail Davalos MD Office Building [address] [place] [address], [address] [place], [place] [id number] [place] [address] [phone] (Wo rk) Social History Tobacco Use [...] Take 1 Cap by mouth 90 Cap 3 06/13/2015 05/26/2016 capsule daily. documented in this encounter Miscellaneous Notes Telephone Encounter - Tamara Zamudio RN - 06/13/[address] Barrow continue Flomax, prescription refill sent to pharmacy elephone Encounter - Makenna Zuniga - 06/13/2015 0833 EDT Pt is calling for refill on flomax documented in this encounter Plan of Treatment Upcoming Encounters Date Type Specialty Care Team Description 10/27/2021 Telemedicine Nephrology Rebekah Miller MD [address] [facility], [address] [place], [place] [phone] (Wo rk) documented as of this encounter Visit Diagnoses Not on filedocumented in this encounter Discontinued Medications Medication Sig Discontinue Reason Start Date End Date tamsulosin (FLOMAX) 0.4 Take 1 Cap by mouth Reorder 02/26/2015 06/13/2015 mg capsule daily documented as of this encounter Care Teams Consumer Science Teacher Relationship Specialty Start Date End Date Brenden Salcedo MD PCP - General 03/21/14 07/02/16 documented as of this encounter
--- OUTSIDE RECORDS SUMMARY | 2021-10-14 08:48 | XMS_ITS | Encounter Summary ---
:[address] 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 1 Tube 0 04/13/2014 04/16/2014 ne (LOTRISONE) cream documented in this encounter Progress Notes Nicole Traore NP - 04/13/2014 1046 EST SUBJECTIVE: Mr. Padilla follows up for his BPH and his intermittent/chronic balanitis. The tamsulosin is controlling his symptoms well. He has no frequency, no urgency, no hesitancy, onlyoccasional nocturia. He is very pleased with the medication. He does get balanitis over the winter correlated to urinating outside in the cold, but the lotrisonecream continues to clear it up on an as-needed basis. His is doing much better overall; it has neveragain become as severe as the first time I saw him. Medications: His medications are reviewed from his chart, and include: Current Outpatient Prescriptions on File Prior to Visit Medication Sig Dispense Refill ??? amlodipine (NORVASC) 5 mg tablet Take 5 mg by mouth daily. Takes in am ??? aspirin chewable 81 mg tablet Take 1 Tab by mouth daily. Takes in am 1 Tab 0 ??? clotrimazole-betamethasone (LOTRISONE) cream Apply topically PRN. 1 Tube 0 ??? ERGOCALCIFEROL, VITAMIN D2, (VITAMIN D ORAL) Take by mouth. ??? lisinopril (PRINIVIL, ZESTRIL) 20 mg tablet Take 20 mg by mouth daily. Takes in am ??? oxycodone-acetaminophen (PERCOCET) 5-325 mg per tablet [...] 1 Cap by mouth daily. 90 Cap 3 No current facility-administered medications on file prior to visit. OBJECTIVE: Lab Results Component Value Date PSA 1.8 02/15/2013 Lab Results Component Value Date BLADDERSCAN 135ml 04/13/2014 No results found for this visit on 04/13/14. Physical exam: External genitalia normal - there was a trace of his chronic balanitis. His prostate exam was done just a week or so ago by his PCP, so I deferred. Normal per PCP. ASSESSMENT: BPH, balanitis PLAN: Refill tamsulosin, refill lotrisone cream. We will merely continue to follow his residuals. RTC one year for repeat PSA. documented in this encounter Plan of Treatment Upcoming Encounters Date Type Specialty Care Team Description 10/27/2021 Telemedicine Nephrology Rebekah Miller MD 1 [facility], Level 2 [place], [place] [phone] (Wo rk) documented as of this encounter Procedures Procedure Name Priority Date/Time Associated Diagnosis Comme nts UROLOGY BLADDER Routine 04/13/2014 10:40 BPH (benign Results for this SCAN EST prostatic procedure are i n hyperplasia) the results section. documented in this encounter Results UROLOGY BLADDER SCAN (04/13/2014 10:40 EST) Pathologist Sig nature Bladder Scan 135ml POINT OF CARE Specimen Urine (substance) Performing Organization Address City/State/ZIP Code Phon e Number [facility] POINT OF CARE POINT OF CARE documented in this encounter Visit Diagnoses Diagnosis BPH (benign prostatic hyperplasia) - Estefania magali Unspecified hyperplasia of prostate with out urinary obstruction and other lower urinary tract symptoms (LUTS) documented in this encounter Discontinued Medications Medication Sig Discontinue Reason Start Date End Date clotrimazole-betamethas Apply topically PRN. Reorder 3 04/13/2014 one (LOTRISONE) cream documented as of this encounter Historical Medications This list may reflect changes made after this encounter. Medication Sig Dispensed Refills Start Date End Date glipiZIDE (GLUCOTROL) 10 Take 10 mg by mouth 0 mg tablet daily. metFORMIN (GLUCOPHAGE) Take 1,000 mg by 0 1,000 mg tablet mouth 2 times daily. added in this encounter Care Teams Manager Storage Relationship Specialty Start Date End Date Brenden Salcedo MD PCP - General 03/21/14 07/02/16 documented as of this encounter
--- OUTSIDE RECORDS SUMMARY | 2021-10-14 08:48 | XMS_ITS | Encounter Summary ---
:1950 Author Organization [facility] Address [address] [place] [address] Care Team Providers Name Role Phone Brenden Salcedo MD Primary Care Provider Reason for Visit Reason Onset Date Comments Medications Refill 02/25/2015 Encounter Details Date Type Department Care Team Description 02/25/2015 Telephone [facility] Nacho Barrow Medic ations Refill Urology - Mikhail Davalos MD Office Building [address] [place] [address], [address], [address] [place], [place] [id number] [place] [address] [phone] (Wo rk) Social History Tobacco Use [...] 1 Cap by mouth 90 Cap 0 02/26/2015 06/13/2015 capsule daily documented in this encounter Miscellaneous Notes Telephone Encounter - Anne Sanders RN - 02/26/2015 4034 EST TC to pt. Discussed with Dr. Barrow ok to give refill. Pt understands. elephone Encounter - Alena Castro - 02/25/2015 1636 EST Mr. Padilla has an appt with Dr. Barrow on 04/16/15 but will be out of Flomax prior to that, he would like to know if he can please get a 2 month refill so he won't run out please, sent to [facility] in [place]. Thanks documented in this encounter Plan of Treatment Upcoming Encounters Date Type Specialty Care Team Description 10/27/2021 Telemedicine Nephrology Rebekah Miller MD 1 [facility], Level 2 [place], [place] [phone] (Wo rk) documented as of this encounter Visit Diagnoses Not on filedocumented in this encounter Discontinued Medications Medication Sig Discontinue Reason Start Date End Date tamsulosin (FLOMAX) 0.4 Take 1 Cap by mouth Reorder 03/02/2014 02/26/2015 mg capsule daily. documented as of this encounter Care Teams Weaving Inspector Relationship Specialty Start Date End Date Brenden Salcedo MD PCP - General 03/21/14 07/02/16 documented as of this encounter
--- OUTSIDE RECORDS SUMMARY | 2021-10-14 08:48 | XMS_ITS | Encounter Summary ---
:1950 Author Organization [facility] Address [address] [place] [address] Care Team Providers Name Role Phone None, Provider Primary Care Provider Unavailable Reason for Visit Reason Comments New Patient Visit consult on penile implant fa ilure Encounter Details Date Type Department Care Team Description 10/24/2019 Office Visit [facility] Nacho Barrow Erect ile disorder due Urology - Medical MD Anoop to medical condition Office Building [address] [place] [address] in male (Primary Dx) [address] [facility] [address] [facility], [place] [address] [place], [place] [address] (Wo rk) Social History Tobacco [...] 90 Cap 0 10/04/2020 mg capsule daily. sildenafil citrate Take 1 Tab by mouth 30 Tab 11 10/24/19 20 05/20/2021 (VIAGRA) 100 mg tablet as needed for Erectile Dysfunction. documented in this encounter Progress Notes Nacho Barrow MD - 10/24/2019 1330 EDT Subjective: Patient ID: Graciela Padilla is an [address] 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 HPI He returns today for follow-up of his ED and BPH . He has been on Flomax with excellent tolerance and efficacy. He has an AUA ss of . He has treated ED with an implant ( S/P revision 12 years ago) that he supplements with Sildenafil to help with glandular engorgement. He also has intermittent balanitis that he treats with periodic Lotrisone this has been less of an issue since he has not been working outdoors as much. There is no problem list on file for this patient. Past Medical History: Diagnosis Date ??? Diabetes mellitus (HCC-CMS) ??? Hypertension Past Surgical History: Procedure Laterality Date ??? OTHER SURGICAL HISTORY 2003 IPP Insertion No family history on [...] to affected area twice daily as needed. 1 Tube 0 ??? glipiZIDE (GLUCOTROL) 10 mg tablet Take 10 mg by mouth daily. ??? lisinopril (PRINIVIL, ZESTRIL) 20 mg tablet Take 20 mg by mouth daily. Takes in am ??? metFORMIN (GLUCOPHAGE) 1,000 mg tablet Take 1,000 mg by mouth 2 times daily. ??? sildenafil citrate (VIAGRA) 100 mg tablet Take 1 Tab by mouth as needed for Erectile Dysfunction. 30 Tab 11 ??? tamsulosin (FLOMAX) 0.4 mg capsule Take 1 Cap by mouth daily. 90 Cap 0 No current facility-administered medications on file prior to visit. Allergies Allergen Reactions ??? Demerol [Meperidine] Nausea And Vomiting Review of Systems Constitutional: Negative. Respiratory: Negative. Cardiovascular: Negative. - See HPI Objective: There were no vitals taken for this visit. Physical Exam Constitutional: He is oriented to person, place, and time. He appears well- developed and well-nourished. HENT: Head: Normocephalic. Pulmonary/Chest: Effort normal. Abdominal: Soft. Genitourinary: Rectum normal and testes normal. Prostate is enlarged (40 grams benign). Implant does not cycle . No erosion. Neurological: He is alert and oriented to person, place, and time. He has normal reflexes. Skin: Skin is warm. Psychiatric: He has a normal mood and affect. His behavior is normal. Judgment and thought content normal. No visits with results within 1 Day(s) from this visit. Latest known visit with results is: Results Only on 01/19/2018 Component Date Value Ref Range Status ??? Pathology Report: 01/19/2018 Final Value:SURGICAL PATHOLOGY REPORT Reports generated via electronic interface contain original data; however they are lacking the format of the original report. Caution should be taken when reading/interpreting unformatted reports. 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 Comment: Within the dermis, there is an epithelial neoplasm that has ductal differentiation and features of eccrine origin. 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 In areas, the cells show mild atypia that appears to be reactive. There is no overt evidence of malignancy. However, the lesion is transected at the peripheral edge and along the entire base of the biopsy specimen. Therefore, correlation with the clinical history and physical examination, with continued surveillance or complete re-excision, is recommended. This case was shown at intradepartmental consultation conference. (Dr. Peacock)/fatoumata Microscopic Description: Sections consist of a shave biopsy of skin to the mid reticular dermis. The epidermis varies to a mild degree in thickness and rete architecture. It shows mild reactive changes, but is otherwise unremarkable. Within the reticular dermis, and extending to the base of the biopsy, is an epithelial neoplasm. The neoplasm consists of islands of varying size. Some of the larger islands are partially cystic and have proteinaceous fluid and hemorrhage. The proliferation is composed of relatively uniform cuboidal cells with a moderate amount of eosinophilic cytoplasm. In areas, cells with clear cytoplasm are also evident. A few mitotic figures are evident and, in some areas, the nuclei are mildly pleomorphic. The islands are discrete with no infiltrative pattern. The islands, in some areas, have en jose carlos necrosis. There is prominent duct formation with surrounding cuticular cells. The stoma appears hyalinized. (Dr. Peacock)/fatoumata Document reviewed and electronically signed by: ANUSHA PEACOCK MD Report Date: 01/21/2018 16:01 By the signature above, the attending physician certifies that he/she has personally conducted a gross and/or microscopic examination of the described specimens and rendered or confirmed the above diagnosis. Specimen(s) Received: 3.0 cm fleshy lesion shave biopsy Clinical History: Large 3.0 cm growth mid back Gross Description: Received in formalin labelled with proper patient identification (initials L , R) and shave biopsy 3.0 cm fleshy is a shave biopsy of a shankar-white wrinkled sessile lesion (1.9 x 1.3 x 0.4 cm). The specimen is inked, quadrisected and submitted in 1 and 2. MILAN Cohn (ASCP) 01/20/2018 4:05 PM End of Report PSA: Lab Results Component Value Date PSA 1.8 02/15/2013 PSA CVH 2.66 10/05/17 BMP: No results found for: NA, K, CL, CO2, BUN, CREATININE, CALCIUM, CALCCA, MG, PHOS, LABALBU Assessment / Plan: 1. 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 He has had a prior MS implant placed. I reviewed the procedure and replacement the risk of bleeding infection and the risk of erosion is increased. He like to proceed as planned. He also will have a sildenafil used for his glandular perfusion and he will continue on the Flomax. He will be prescribed vancomycin gentamicin preoperatively along with fluconazole IV preoperatively. No orders of the defined types were placed in this encounter. Nacho Barrow MD documented in this encounter Plan of Treatment Upcoming Encounters Date Type Specialty Care Team Description 10/27/2021 Telemedicine Nephrology Rebekah Miller MD 1 [facility], Level 2 [place], [place] [phone] (Wo rk) documented as of this encounter Visit Diagnoses Diagnosis Erectile disorder due to medical conditi on in male - Primary documented in this encounter Discontinued Medications Medication Sig Discontinue Reason Start Date End Date sildenafil citrate Take 1 Tab by mouth Reorder 10/19/2017 (VIAGRA) 100 mg tablet as needed for Erectile Dysfunction. tamsulosin (FLOMAX) 0.4 Take 1 Cap by mouth Reorder 10/19/2017 10/24/2019 mg capsule daily. documented as of this encounter Orders Case Request Count Last Ordered Date First Ordered Date CASE REQUEST OPERATING ROOM 1 10/24/2019 documented in this encounter Care Teams Residential Glazier Relationship Specialty Start Date End Date None, Provider PCP - General 07/03/16 11/29/19 documented as of this encounter
--- OUTSIDE RECORDS SUMMARY | 2021-10-14 08:48 | XMS_ITS | Encounter Summary ---
:[address] [facility] Address [address] [place] [address] Care Team Providers Name Role Phone None, Provider Primary Care Provider Unavailable Encounter Details Date Type Department Care Team Description 03/14/2014 Orders Only [facility] Nicole Traore BPH (benign prostatic Urology - Medical R, MINE CAPTAIN hyperplasia) (Primary Office Building [address] [place] [address] [address] [phone] [place] [address] Social History Tobacco Use Types Packs/Day Years [...] MD 1 [facility], Level 2 [place], [place] [phone] (Wo rk) documented as of this encounter Visit Diagnoses Diagnosis BPH (benign prostatic hyperplasia) - Estefania magali Unspecified hyperplasia of prostate with out urinary obstruction and other lower urinary tract symptoms (LUTS) documented in this encounter Care Teams Vocational Services Specialist Relationship Specialty Start Date End Date None, Provider PCP - General 02/15/13 03/20/14 documented as of this encounter
--- OUTSIDE RECORDS SUMMARY | 2021-10-14 08:48 | XMS_ITS | Encounter Summary ---
:1950 Author Organization [facility] Address [address] [place] [address] Care Team Providers Name Role Phone Priscilla Robert MD Primary Care Provider Reason for Visit Reason Onset Date Comments Appointment Related 07/02/2020 Encounter Details Date Type Department Care Team Description 07/02/2020 Telephone [facility] Kristina Miller MD Appointment Related Nephrology - S Prosp ect 1 [facility] [address] [place] [address] Rehab, [place] [address] (Wo rk) Social History Tobacco [...] this encounter Miscellaneous Notes Telephone Encounter - Selvin Bartlett - 07/02/2020 1427 EDT LMOM looking to see if pt would like to move up his 6/7 NPV apt. documented in this encounter Plan of Treatment Upcoming Encounters Date Type Specialty Care Team Description 10/27/2021 Telemedicine Nephrology Rebekah Miller MD 1 [facility], Level [address] [place], [place] [phone] (Wo rk) documented as of this encounter Visit Diagnoses Not on filedocumented in this encounter Additional Health Concerns Infection Onset Date Last Indicated Resolved Time MRSAComment: [facility] Inf Import 01/30/2021 01/30/2021 documented as of this encounter Care Teams Bench Press Operator Relationship Specialty Start Date End Date Priscilla Robert MD PCP - General 11/30/19 [address] [place] [phone] documented as of this encounter
--- OUTSIDE RECORDS SUMMARY | 2021-10-14 08:48 | XMS_ITS | Encounter Summary ---
:1950 Author Organization [facility] Address [address] [place] [address] Care Team Providers Name Role Phone Priscilla Robert MD Primary Care Provider Reason for Visit Reason Comments Other Pre-op Encounter Details Date Type Department Care Team Description 12/03/2019 Nurse Only [facility] Scre ening for viral [facility] Testing disewalter se (Primary Dx) - [facility] - Mobile Testing Department [address] [place] [address] Social History Tobacco Use Types Packs/Day Years Used Date Never Smoker Smokeless Tobacco: Never Used Alcohol Use Standard Drinks/Week Comments No 0 (1 standard drink = 0.6 oz pure alcoho l) Sex Assigned at Date Recorded Not on file documented as of this encounter Last Filed Vital Signs Vital Sign Reading Time Taken Comments Blood Pressure - - Pulse 102 12/03/2019 1013 EDT Temperature - - Respiratory Rate - - Oxygen Saturation 98% 12/03/2019 1013 EDT Inhaled Oxygen Concentration - - Weight - - Height - - Body Mass Index - - documented in [...] making decisions? documented as of this encounter Progress Notes Minal Hamilton - 12/03/2019 1030 EDT Pre-op clearance, surgery 12/07/2019 documented in this encounter Plan of Treatment Upcoming Encounters Date Type Specialty Care Team Description 10/27/2021 Telemedicine Nephrology Rebekah Miller MD 1 [facility], Level [address] [place], [place] [phone] (Wo rk) documented as of this encounter Visit Diagnoses Diagnosis Screening for viral disease - Primary Special screening examination for unspec ified viral disease documented in this encounter Care Teams Warehouse Loader Relationship Specialty Start Date End Date Priscilla Robert MD PCP - General 11/30/[address] [place] [phone] documented as of this encounter
--- OUTSIDE RECORDS SUMMARY | 2021-10-14 08:48 | XMS_ITS | Encounter Summary ---
:1950 Author Organization [facility] Address [address] [place] [address] Care Team Providers Name Role Phone None, Provider Primary Care Provider Unavailable Reason for Visit Reason Onset Date Comments Medications Refill 03/02/2014 Encounter Details Date Type Department Care Team Description 03/02/[address] [facility] Nicole Traore M edications Refill Urology - Medical Office [facility] OFF[facility] Building [address] [place] [address] [address] [address] [place], [place] [address] [phone] Social History Tobacco Use Types Packs/Day Years [...] 1 Cap by mouth 90 Cap 3 03/02/2014 02/26/2015 capsule daily. documented in this encounter Miscellaneous Notes Telephone Encounter - Prema Decker RN - 03/02/2014 4100 EST Refill of tamsulosin sent to [facility] in [place]. elephone Encounter - Makenna Zuniga - 03/02/2014 1355 EST PT CALLING FOR REFILL documented in this encounter Plan of Treatment Upcoming Encounters Date Type Specialty Care Team Description 10/27/2021 Telemedicine Nephrology Rebekah Miller MD 1 [facility], Level [address] [place], [place] [phone] (Wo rk) documented as of this encounter Visit Diagnoses Not on filedocumented in this encounter Discontinued Medications Medication Sig Discontinue Reason Start Date End Date tamsulosin (FLOMAX) 0.4 Take 1 Cap by mouth Reorder 03/16/2013 03/02/2014 mg capsule daily. documented as of this encounter Care Teams Networking Technician Relationship Specialty Start Date End Date None, Provider PCP - General 02/15/13 03/20/14 documented as of this encounter
--- OUTSIDE RECORDS SUMMARY | 2021-10-14 08:48 | XMS_ITS | Encounter Summary ---
:1950 Author Organization [facility] Address [address] [place] [address] Care Team Providers Name Role Phone Priscilla Roebrt MD Primary Care Provider Encounter Details Date Type Department Care Team Description 07/29/2020 Abstract [facility] Kristina Miller MD Nephrology - S Prosp ect [address], [address] [place], [place] [phone] [place] [phone] (Wo rk) Social History Tobacco Use Types [...] Specialty Care Team Description 10/27/2021 Telemedicine Nephrology Rebeakh Miller MD [address] [facility] [place], [address] [place], [place] [phone] (Wo rk) documented as of this encounter Procedures Procedure Name Priority Date/Time Associated Diagnosis Comme nts HEMOGLOBIN A1C Routine 06/13/2020 Results for t his procedure are i n the results section . LIPID PROFILE (INCLUDES Routine 06/13/2020 Resu lts for this CHOLESTEROL, procedure are i n the TRIGLYCERIDES, HDL, LDL) res ults section. COMPREHENSIVE METABOLIC Routine 06/13/2020 Resu lts for this PANEL (CMP) procedure are i n the results section . documented in this encounter Results LIPID PROFILE (INCLUDES CHOLESTEROL, TRIGLYCERIDES, HDL, LDL) (06/13/2020) Pathologist Sig nature Cholesterol, External 138 EXTERNAL LAB Triglycerides, External 66 EXTERNAL LAB HDL, External 46 EXTERNAL LAB LDL, External 79 EXTERNAL LAB Chol/HDL Ratio, External EXTERNAL LAB Fasting?, External EXTERNAL LAB Specimen Blood - Venous blood (substance) Performing Organization Address City/State/ZIP Code Phon e Number EXTERNAL LAB HEMOGLOBIN A1C (06/13/2020) Pathologist Sig nature Hemoglobin A1C, External 7.2 EXTERNAL LAB Est Avg Glucose, External EXTERNAL LAB Specimen Blood - Venous blood (substance) Performing Organization Address City/State/ZIP Code Phon e Number EXTERNAL LAB COMPREHENSIVE METABOLIC PANEL (CMP) (06/13/2020) Pathologist Sig nature GFR, Calculated, External 25.81 EXTERNAL LAB Glucose, Serum, External 145 EXTERNAL LAB Albumin, External 3.8 EXTERNAL LAB Total Alkaline Phosphatase, 73 EXTERNAL LAB External ALT, External 48 EXTERNAL LAB AST, External 22 EXTERNAL LAB BUN, External 33 EXTERNAL LAB Calculated Calcium, External EXTERNAL LAB Calcium, External 9.0 EXTERNAL LAB Chloride, External 108 EXTERNAL LAB CO2, External 23.2 EXTERNAL LAB Creatinine, External 2.5 EXTERNAL LAB Fasting?, External EXTERNAL LAB Potassium, External 4.7 EXTERNAL LAB Sodium, External 143 EXTERNAL LAB Total Protein, External 7.2 EXTERNAL LAB Bilirubin, Total, External 0.7 EXTERNAL LAB Specimen Blood - Venous blood (substance) Performing Organization Address City/State/ZIP Code Phon e Number EXTERNAL LAB documented in this encounter Visit Diagnoses Not on filedocumented in this encounter Care Teams Broth Mixer Relationship Specialty Start Date End Date Priscilla Robert MD PCP - General 11/30/19 [address] [place] [phone] documented as of this encounter
--- OUTSIDE RECORDS SUMMARY | 2021-10-14 08:48 | XMS_ITS | Encounter Summary ---
:1950 Author Organization [facility] Address [address] [place] [address] Care Team Providers Name Role Phone Brenden Salcedo MD Primary Care Provider Reason for Visit Reason Onset Date Comments Medication Management 04/13/2014 Encounter Details Date Type Department Care Team Description 04/13/2014 Telephone [facility] Nicole Traore Medi cation Management Urology - Medical Office R, SUPERVISORY LIFEGUARD Building [address] [place] [address] [phone] [place] [address] Social History Tobacco Use Types [...] Sig Dispensed Refills Start Date End Date clotrimazole-betamethason Apply to affected 1 Tube 0 07/06/2016 e (LOTRISONE) cream area twice daily as needed.. documented in this encounter Miscellaneous Notes Telephone Encounter - Nicole Traore NP - 04/16/2014 1334 EST I adjusted the sig and spoke with the pharmacy. Should be fine now. Telephone Encounter - Nadia Makenna M - 04/13/2014 1344 EST Pharmacy needs More instructions for insurance purposes for refill lotrisone cream. documented in this encounter Plan of Treatment Upcoming Encounters Date Type Specialty Care Team Description 10/27/2021 Telemedicine Nephrology Rebekah Miller MD 1 [facility], Level 2 [place], [place] [address] (Wo rk) documented as of this encounter Visit Diagnoses Not on filedocumented in this encounter Discontinued Medications Medication Sig Discontinue Reason Start Date End Date clotrimazole-betamethas Apply topically PRN.. Order modification 04/16/2014 one (LOTRISONE) cream documented as of this encounter Care Teams Plastic Jig And Fixture Builder Relationship Specialty Start Date End Date Brenden Salcedo MD PCP - General 03/21/14 07/02/16 documented as of this encounter
--- OUTSIDE RECORDS SUMMARY | 2021-10-14 08:48 | XMS_ITS | Encounter Summary ---
:1950 Author Organization [facility] Address [address] [place] [address] Care Team Providers Name Role Phone Priscilla Robert MD Primary Care Provider Reason for Referral Follow Up (3 - 10 Business Days) - Authorization Not Required Specialty Diagnoses / Procedures Referred By Contact Refer red To Contact Diagnoses Creatinine elevation Yohannes Emery MD Bisson, Linda C, MD [address] [facility] [address] [place] [address] [place] [address] Fax: Referral ID Status Reason Start Expiration Visits Visits Date Date Requested Authorized [id number] Authorization Continuity of 1 1 Not Required Care 0 Question Answer Reason for Request: Follow up elevated Cr, suraj nuity of care Scheduling Comments (optional ? 1 week describe specific scheduling needs if applicable): ollow Up (48 Hrs (Urgent)) - Authorization Not Required Specialty Diagnoses / Procedures Referred By Contact Refer red To Contact Urology Diagnoses Erectile dysfunction, unspecified erectile dysfunction type Christina Shaw MD [facility] Urology [address] [facility] [address] [place] [address] [address] [place] [address] Phone: Fax: Referral ID Status Reason Start Expiration Visits Visits Date Date Requested Authorized [id number] Authorization Specialty 1 1 Not Required Services 0 Required Question Answer Reason for Request: In [address] Barrow for stich removal post IPP Reason for Visit Auth/Cert Specialty Diagnoses / Procedures Referred By Contact Refer red To Contact Diagnoses Erectile dysfunction, unspecified erectile dysfunction type Procedures [place] REPLACE,INFLATABLE PENILE PROSTHESIS Remove and replace penile implant- AMS Referral ID Status Reason Start Date Expiration Date Visits Requ ested Visits Authorized [id number] 1 1 Encounter Details Date Type Department Care Team Description 12/07/2019 - [facility] Nacho Barrow ile dysfunction, unspecified erectile dysfunction type (Primary Dx); 12/08/2019 Encounter Specialty Surgery MD Anoop Creatinine elevation Unit [address] [place] [address], [facility] [place] [address] Social History Tobacco Use Types Packs/Day Years [...] Sign Reading Time Taken Comments Blood Pressure 162/83 12/08/2019 1019 EDT Pulse 108 12/07/2019 0814 EDT Temperature 37.2 ??C (99 ??F) 12/08/2019 0547 EDT Respiratory Rate 18 12/08/2019 0547 EDT Oxygen Saturation 94% 12/08/2019 0547 EDT Inhaled Oxygen Concentration - - Weight 122 kg (268 lb 15.4 oz) 12/07/2019 0725 EDT Height 182.9 cm (6') 12/07/2019 0725 EDT Body Mass Index 36.48 12/07/2019 0725 [...] 10/24/2019 Added automatically from request for surgery [id number] Resolved Hospital Problems No resolved problems to [...] Post Op Visit with Nacho Barrow MD [facility] Urology - Medical Office Building (--) [address] [place] [address], [place] [phone] YOHANNES EMERY MD 12/08/2019 10:35 documented in [...] call their clinic to confirm this appointment. [facility] Urology Clinic: documented in this encounter [...] Code Departure Means Destination Home or Self Halfway documented in this encounter Progress Notes Cal Minor MD - 12/08/2019 0664 EDT Urology Progress Note Dx: Erectile Dysfunction [...] Intake/Output Summary (Last 24 hours) at 12/08/2019 0653 Last data filed at 12/08/2019 0559 Gross [...] ??? Abx: ancef x 24 hours ??? 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 For weekends and all other [...] Nursing Notes Alejandra Ackerman RN - 12/07/2019 0743 EDT Preop Covid DOS screening questionnaire Please [...] penile implant. SURGEON: Nacho Barrow MD FACS HEALTH AND WELLNESS ADVISOR: Christina Shaw MD ANESTHESIA: INDICATIONS: The patient [...] subsequently had a Rose catheter placed, a 16-Pakistani closed system was utilized. We then placed [...] 24 cm with 0.5 cm rear tip blood collector on this since it was a prior [...] and no drains retained. Nacho Barrow MD [facility] / Confirmation: [id number] Dictation ID: [id number] cc: documented in this encounter Miscellaneous Notes [...] 12/08/2019 12:22 MICHELA BUTT RN lan of Benji - German Langley RN - 12/08/2019 0500 [...] GERMAN LANGLEY RN 12/08/2019 5:00 lan of [place]ji - Anand Hidalgo RN - 12/07/2019 1624 EDT Data: Admitted patient to floor via [facility] pacu POD 0 from replacement of IPP, [...] EDT BRIEF OP NOTE Surgeon: Nacho Barrow,* District Captain: Christina Shaw MD Pre-op diagnosis: Erectile dysfunction, [...] Nephrology Rebekah Miller MD 1 [facility], Level 2 [place], [place] [address] (Wo rk) Scheduled Referrals [...] dysfunction, unspecified erectile dysfunction type Special Needs [place] Sci Rep: Ashkan Sheridan rte: POCT GLUCOSE, INTERFACED Routine 12/07/2019 6:56 EDT Results for this procedure are in the resu lts section. ECG REPORT - SCANNED 11/20/2019 8:57 EDT ECG REPORT - SCANNED 11/17/2019 14:09 EDT documented in this encounter Results (ABNORMAL) COMPLETE BLOOD COUNT (12/08/2019 4:13 EDT) Pathologist Sig nature WBC 7.27 4.00 - 10.40 K/cmm [facility] RBC 3.74 (L) 4.36 - 5.78 M/cmm [facility] Hemoglobin 11.0 (L) 13.8 - 17.3 gm/dL [facility] HCT 32.5 (L) 39.5 - 50.2 % [facility] MCV 87 81 - 95 fl [facility] MCH 29.4 27.6 - 33.0 pg [facility] MCHC 33.8 32.8 - 36.4 gm/dL [facility] RDW-CV 12.7 <14.2 % [facility] RDW-SD 40.0 <46.0 fl [facility] PLT 139 (L) 141 - 377 K/cmm [facility] MPV 11.4 9.5 - 12.7 fl [facility] Specimen Blood - Venous blood (substance) Performing Organization Address [facility]/ZIP Code Phon e Number [facility] [address] [place] [address] SERVICES (ABNORMAL) GLUCOSE, SERUM (12/08/2019 4:12 EDT) Pathologist Sig nature Glucose 240 (H) 70 - 100 mg/dL [facility]ORAT ORY SERVICES Specimen Blood - Venous blood (substance) Performing Organization Address [facility]/ZIP Code Phon e Number [facility] [address] [place] [address] SERVICES (ABNORMAL) CREATININE (12/08/2019 4:12 EDT) Creatinine 2.15 (H) 0.66 - 1.25 [facility] mg/dL LABORATORY SERVICES eGFR 31 (L)Comment: eGFR >60 [facility] calculated using mL/min/1.73m2 LABORATORY SERVICES CKD-EPI equation for non- Americans. Multiply eGFR by 1.16 for patients. Specimen Blood - Venous blood (substance) Performing Organization Address City/[facility]/ZIP Code Phon e Number [facility] [address] [place] [address] SERVICES (ABNORMAL) BUN (12/08/2019 4:12 EDT) Pathologist Sig nature BUN 38 (H) 10 - 26 mg/dL [facility] LABORATO RY SERVICES Specimen Blood - Venous blood (substance) Performing Organization Address [facility]/ZIP Code Phon e Number [facility] [address] [place] [address] SERVICES ELECTROLYTES (12/08/2019 4:12 EDT) Pathologist Sig nature Sodium 139 136 - 145 mEq/L [facility] Potassium 4.4 3.5 - 5.0 mEq/L [facility] Chloride 103 96 - 110 mEq/L [facility] ORY SERVICES CO2 Total 24 22 - 32 mEq/L [facility] RY SERVICES Specimen Blood - Venous blood (substance) Performing Organization Address [facility]/ZIP Code Phon e Number [facility] [address] [place] [address] SERVICES (ABNORMAL) POCT GLUCOSE, INTERFACED (12/07/2019 20:54 EDT) Glucose, POC 212 (H) 70 - 100 [facility] mg/dL LABORATORY dean of faculty ID [id number] [facility] LABOR[facility] SERVICES HN LAB POC COMMENT Test Performed by [facility] [employer]on[employer] R (GLUCOSE) Nursing Services LABORATORY SERVICES Specimen Blood - Capillary blood (substance) Performing Organization Address [facility] Code Phon e Number [facility] [address] [place] [address] SERVICES (ABNORMAL) POCT GLUCOSE, INTERFACED (12/07/2019 16:14 EDT) Glucose, POC 190 (H) 70 - 100 [facility] mg/dL LABORATORY dean of faculty ID [id number] [facility] SERVICES HN LAB POC COMMENT Test Performed by [facility] [email or web address] R (GLUCOSE) Nursing Services LABORATORY SERVICES Specimen Blood - Capillary blood (substance) Performing Organization Address City/[facility]/ZIP Code Phon e Number [facility] [address] [place] [address] SERVICES (ABNORMAL) POCT GLUCOSE, INTERFACED (12/07/2019 13:57 EDT) Glucose, POC 185 (H) 70 - 100 [facility] mg/dL LABORATORY dean of faculty ID [id number] [facility] LABOR[facility]ORY SERVICES HN LAB POC COMMENT Test Performed by [facility] [employer] R (GLUCOSE) Nursing Services LABORATORY SERVICES Specimen Blood - Capillary blood (substance) Performing Organization Address City/[facility]/ZIP Code Phon e Number [facility] [address] [place] [address] SERVICES (ABNORMAL) POCT GLUCOSE, INTERFACED (12/07/2019 13:00 EDT) Glucose, POC 192 (H) 70 - 100 [facility] mg/dL LABORATORY dean of faculty ID [id number] [facility] LAB[facility] SERVICES HN LAB POC COMMENT Test Performed by [facility] [email or web address] R (GLUCOSE) Nursing Services LABORATORY SERVICES Specimen Blood - Capillary blood (substance) Performing Organization Address City/[facility]/ZIP Code Phon e Number [facility] [address] [place] [address] SERVICES (ABNORMAL) POCT GLUCOSE, INTERFACED (12/07/2019 12:07 EDT) Glucose, POC 229 (H) 70 - 100 [facility] mg/dL LABORATORY dean of faculty ID [id number] [facility] SERVICES HN LAB POC COMMENT Test Performed by [facility] [email or web address] R (GLUCOSE) Nursing Services LABORATORY SERVICES Specimen Blood - Capillary blood (substance) Performing Organization Address [facility]/ZIP Code Phon e Number [facility] [address] [place] [address] SERVICES (ABNORMAL) POCT GLUCOSE, INTERFACED (12/07/2019 10:55 EDT) Glucose, POC 261 (H) 70 - 100 [facility] mg/dL LABORATORY dean of faculty ID [id number] [facility] SERVICES HN LAB POC COMMENT Test Performed by [facility] [email or web address] R (GLUCOSE) Nursing Services LABORATORY SERVICES Specimen Blood - Capillary blood (substance) Performing Organization Address [facility]/ZIP Code Phon e Number [facility] [address] [place] [address] SERVICES (ABNORMAL) POCT GLUCOSE, INTERFACED (12/07/2019 9:53 EDT) Glucose, POC 300 (H) 70 - 100 [facility] mg/dL LABORATORY dean of faculty ID [id number] [facility] SERVICES HN LAB POC COMMENT Test Performed by [facility] [email or web address] R (GLUCOSE) Nursing Services LABORATORY SERVICES Specimen Blood - Capillary blood (substance) Performing Organization Address City/[facility]/ZIP Code Phon e Number [facility] [address] [place] [address] SERVICES (ABNORMAL) POCT GLUCOSE, INTERFACED (12/07/2019 6:56 EDT) Glucose, POC 326 (H) 70 - 100 [facility] mg/dL LABORATORY dean of faculty ID [id number] [facility] SERVICES HN LAB POC COMMENT Test Performed by [facility] [email or web address] R (GLUCOSE) Nursing Services LABORATORY SERVICES Specimen Blood - Capillary blood (substance) Performing Organization Address City/[facility]/ZIP [facility] Phon e Number [facility] [address] [place] [address] SERVICES documented in this encounter Visit Diagnoses Diagnosis Erectile dysfunction, unspecified erecti le dysfunction type Creatinine elevation Other nonspecific findings on examinatio n of blood documented in this encounter Admitting Diagnoses Diagnosis [...] 4 HOURS PRN, Starting on Wed12/07/19 at 1401, Until Wed12/08/19 at 1329, Pain, [...] subcutaneous, EVERY 12 HOURS, First dose on Wed12/07/19 at 2100, Until Discontinued, Routine HYDROmorphone (DILAUDID) tablet 2-4 mg Given 12/08/2019 9:14 EDT 2 mg 2-4 mg, oral, EVERY 4 HOURS PRN, Starting on Wed12/07/19 at 1426, Until Wed12/08/19 at 1329, Pain, [...] Units, subcutaneous, ONCE, 1 dose, Starting on Wed12/07/19 at 0815, Until Wed12/07/19 at 0843, Preprocedure lactated ringers (LR) infusion New Bag 12/07/2019 10:49 EDT at 30 mL/hr, 30 mL/hr, intravenous, CONTINUOUS, Starting on Wed12/07/19 at 0730, Until Wed12/08/19 at 1329, Routine, [...] mg, intravenous, PRN, 1 dose, Starting on Lfori 12/07/19 at 1139, Until Flori 12/07/19 at 1235, Nausea, Vomiting, Routine, Recovery (only) ondansetron (PF) (ZOFRAN) injection 4 mg Given 12/07/2019 17:58 EDT 4 mg 4 mg, intravenous, EVERY 4 HOURS PRN, Starting on Flori [...] 30 MINUTES PRN, 2 doses, Starting on Flori 12/07/19 at 1139, Until [...] 10 mg 1019 (Given - Provider: Michela Butt RN) 10 mg, oral, DAILY, First dose (after la st modification) on Wed12/08/19 at 0900, Until Discontinued, Routine aspirin chewable tablet 81 mg 10 19 (Given - Provider: Michela Butt RN) 81 mg, oral, DAILY, First dose on 02/15 at 0900, Until Discontinued, Routine atorvastatin (LIPITOR) tablet 10 mg 1019 (Given - Provider: Michela Butt RN) 10 mg, oral, DAILY, First dose on 02/15 at 0900, Until Discontinued, Routine ceFAZolin in dextrose (iso-os) piggyback 2 g/100 mL (COMPLET ED) 1602 (Given - Provider: Anand Hdialgo RN)2310 (Given - Provider: German Langley RN) 0643 (Given - Provider: German Langley RN) 2,000 mg, intravenous, Administer over 3 0 Minutes, EVERY 8 HOURS, 3 doses, First dose on Wed12/07/19 at 1445, Last dose on Wed12/08/19 at 0700, Type of Therapy: Prophylaxis, Suspected Indication (Select all that apply): Surgical prophylaxis, ID Consult: No, Routine docusate sodium (COLACE) capsule 100 mg 2256 (Not Given - Provider: German Langley RN [...] 1 H ours, PRE-OP ONCE, 1 dose, Wed12/07/19 at 0730, STAT, Preprocedure gentamicin (GARAMYCIN) 480 mg in sodium chloride (NS) 0.9 % 50 mL IVPB (COMPLETED) 0752 (Given - Provider: Alejandra Ackerman RN - Comment: compatable c Vanco and Fluconazole) 480 mg (rounded from 478 mg = 5 mg/kg ? 95.6 kg Adjusted weight), intravenous, Administer over 30 Minutes, PRE-OP ONCE, 1 dose, Wed12/07/19 at 0730, Routine, Preprocedure heparin injection 5,000 Units 2034 (Given - Prov ider: German Langley RN) 1024 (Not Given - Provider: Michela Butt RN - Reason: Patient/family refused) 5,000 Units, subcutaneous, EVERY 12 HOUR S, First dose on Wed12/07/19 at 2100, Until Discontinued, Routine insulin aspart U-100 (NOVOLOG FLEXPEN) injection 225 (Not Given - Provider: German Langley RN - Reason: Order parameters not met) subcutaneous, AT BEDTIME, First dose on Wed12/07/19 at 2100, Until Discontinued insulin aspart U-100 (NOVOLOG FLEXPEN) injection 1656 (Given - Provider: Anand Hidalgo RN) 1025 (Not Given - Provider: Michela donald RN - Reason: Other - Comment: pt [...] 20 mg 1019 (Given - Provider: Michela Butt RN) 20 mg, oral, DAILY, First dose on 02/15 at 0900, Until Discontinued, Routine tamsulosin (FLOMAX) capsule 0.4 mg 2033 (Given - Provider: German Langley RN) 1019 (Given - Provider: Michela Butt RN) 0.4 mg, oral, DAILY, First dose on Wed at 2100, Until Discontinued, Routine vancomycin (VANCOCIN) 1,750 mg in dextrose 5% (D5W) 500 mL I VPB (COMPLETED) 0711 (Given - Provider: Alejandra Ackerman, VIV) 1,750 mg (rounded from 1,837.5 mg = 15 m g/kg ? 122.5 kg), intravenous, Administer over 105 Minutes, PRE-OP ONCE, 1 dose, Wed12/07/19 at 0730, Type of Therapy: Prophylaxis, [...] Gem Moreno RN)1804 (See Alternative - Provider: Aannd Hidalgo RN) 0046 (See Alternative - Provider: Silvana Brown RN)0914 (See Alternative - Provider: Hope Pimentel, VIV) 650 mg, rectal, EVERY 4 HOURS PRN, Start ing Flori 12/07/19 at 1401, Until Wed12/08/19 at 1329, Pain, Routine acetaminophen (TYLENOL) tablet 650 mg(Linked Group 1) 1405 (Given - Provider: Gem Moreno RN)1804 (Given - Provider: Anand Hidalgo RN) 0046 (Given - Provider: Antonette Brown, VIV)0914 (Given - Provider: Hope Pimentel, VIV) 650 mg, oral, EVERY 4 HOURS PRN, [...] 2-4 mg 0046 (Given - Provider: Antonette Brown, RN)0914 (Given - Provider: Hope Pmientel, VIV) 2-4 mg, oral, EVERY 4 HOURS PRN, Startin g Flori 12/07/19 at 1426, Until Wed12/08/19 at 1329, Pain, Routine metoCLOPramide (REGLAN) injection 10 mg (COMPLETED) 1235 (Given - Provider: Gem Moreno, VIV) 10 mg, intravenous, PRN, 1 dose, Startin g Flori 12/07/19 at 1139, Until Discontinued, Nausea, Routine, Recovery (only) ondansetron (PF) (ZOFRAN) injection 4 mg (COMPLETED) 123 (Given - Provider: Gem Moreno RN) 4 [...] disintegrating tablet 4 mg(Linked G roup 2) 175 (See Alternative - Provider: Anand Hidalgo, RN) 4 mg, oral, EVERY 4 HOURS PRN, Starting Flori 12/07/19 at 1426, Until Wed12/08/19 at 1329, Nausea, Routine oxyCODONE (ROXICODONE) immediate release tablet 5-10 mg (CAN CELED) 1405 (Given - Provider: Gem Moreno, RN) 5-10 mg, oral, EVERY 30 MINUTES [...] oral, EVERY 6 HOURS PRN, Starti ng [facility] 12/07/19 at 1426, Until Wed12/08/19 at 1329, Nausea, Routine Linked Groups Order Group 1: acetaminophen (TYLENOL) tablet 650 mgJump to med 650 mg, oral, EVERY 4 HOURS PRN, Startin g Flori 12/07/19 at 1401, Until Wed12/08/19 at 1329, Pain, Routine Or acetaminophen (TYLENOL) suppository 650 mgJump to med 650 mg, rectal, EVERY 4 HOURS PRN, Start ing [facility] 12/07/19 at 1401, Until Wed12/08/19 at 1329, [...] mg, rectal, EVERY 6 HOURS [facility], [facility] 12[facility] at 1426, Until Wed12/08/19 at 1329, [...] 12/08/2019 documented in this encounter Care Teams Spinner Frame Relationship Specialty Start Date End Date Priscilla Robert MD PCP - General 11/30/[address] [place] [phone] documented as of this encounter
--- OUTSIDE RECORDS SUMMARY | 2021-10-14 08:48 | XMS_ITS | Encounter Summary ---
:1950 Author Organization [facility] Address [address] [place] [address] Care Team Providers Name Role Phone Priscilla Robert MD Primary Care Provider Encounter Details Date Type Department Care Team Description 06/13/2020 Lab Requisition [facility] Outr Resulting Lab, Pathology & Laboratory Provider [facility] [address] [place], [place] [address] Social History Tobacco Use Types Packs/Day Years [...] Rebekah Miller MD 1 [facility], [address] [place], [place] [address] (Wo rk) documented as of this encounter Procedures Procedure Name Priority Date/Time Associated Comments Diagnosis PSA TOTAL, Routine 06/13/2020 7:59 EDT Results for this DIAGNOSTIC procedure are i n the results section. documented in this encounter Results PSA TOTAL, DIAGNOSTIC (06/13/2020 7:59 EDT) Pathologist Sig nature PSA 3.8 0.0 - 4.5 ng/mL [facility] Specimen Blood - Venous blood (substance) Narrative [facility] - 06/13/2020 21:45 EDT NOTE: Serum PSA concentration should not be in terpreted as absolute evidence for the presence or absence of malignant disease. Assayed on [employer] Tempered Mindaur XPT usi ng chemiluminescent technology.??Values obtained by using different assay methods cannot be used interchangeably. Performing Organization Address City/State/ZIP Code Phon e Number [facility] [address] [place] [address] SERVICES documented in this encounter Visit Diagnoses Not on filedocumented in this encounter Additional Health Concerns Infection Onset Date Last Indicated Resolved Time MRSAComment: [facility] Inf Import 01/30/2021 01/30/2021 documented as of this encounter Care Teams Financial Sales Manager Relationship Specialty Start Date End Date Priscilla Robert MD PCP - General 11/30/19 [address] [place] [address] documented as of this encounter
--- OUTSIDE RECORDS SUMMARY | 2021-10-14 08:48 | XMS_ITS | Encounter Summary ---
:1950 Author Organization [facility] Address [address] [place] [address] Care Team Providers Name Role Phone Priscilla Robert MD Primary Care Provider Reason for Visit Reason Comments Post-OP Follow Up suture rmoval, penile implan t Encounter Details Date Type Department Care Team Description 12/18/2019 Post-op Visit [facility] Nacho Barrow [facility] Urology - Medical MD Anoop dysfunction, Office Building [address] unspecified erectile [address] [facility], [place] dysfunction type [address] [facility] (Primary Dx) [place] [address] [address], [place] [phone] (Wo rk) Social History Tobacco Use Types [...] encounter Progress Notes Nacho Barrow MD - 12/18/2019 1015 EDT Post-op implant. Doing well. Incision intact , suture removed. He will F/U in 3 months video visit. documented in this encounter Plan of Treatment Upcoming Encounters Date Type Specialty Care Team Description 10/27/2021 Telemedicine Nephrology Rebekah Miller MD 1 [facility], Level [address] [place], [place] [phone] (Wo rk) documented as of this encounter Visit Diagnoses Diagnosis Erectile dysfunction, unspecified erecti le dysfunction type - Primary documented in this encounter Care Teams Replanting Machine Crew Relationship Specialty Start Date End Date Priscilla Robert MD PCP - General 11/30/[address] [place] [phone] documented as of this encounter
--- OUTSIDE RECORDS SUMMARY | 2021-10-14 08:48 | XMS_ITS | Encounter Summary ---
:1950 Author Organization [facility] Address [address] [place] [address] Care Team Providers Name Role Phone Priscilla Robert MD Primary Care Provider Reason for Visit Auth/Cert Specialty Diagnoses / Procedures Referred By Contact Refer red To Contact Diagnoses Erectile dysfunction, unspecified erectile dysfunction type Procedures DC REPLACE,INFLATABLE PENILE PROSTHESIS Remove and replace penile implant- AMS Referral ID Status Reason Start Date Expiration Date Visits Requ ested Visits Authorized [id number] 1 1 Encounter Details Date Type Department Care Team Description 12/07/2019 Anesthesia Event [facility] OR Ronnie Nelson MD 111 [facility] [address], [facility] [place] [place] [phone] (Wo rk) Anesthesia Record Procedure Summary Procedure Name Responsible Anesthesia Start Anesthesia Stop Time Anesthesiologist Time Remove and replace Ronnie Nelson MD 12/07/19 0847 12/07/19 12 12 penile implant- AMS (N/A Penis) Events Date Time Event Comment 12/07/2019 0847 An Start The patient was re-evaluated immediately before moderate or deep sedation use, before anesthesia induction, or be fore the anesthesia procedure. 0850 An Start Data 0900 An Induction The patient was reevaluated immediately before moderate or deep sedation use and before anesthesia induction. 0903 An Intubation 0908 Anesthesia Ready 1156 An Extubation 1159 an stop data 1211 Handoff to RN I completed my h andoff to the receiving nurse during which we: 1. David ntified the patient 2. Identified the responsible provider 3. Reviewed the pertinent medical history 4. Discussed the surgical course 5. Reviewed intra-o p anesthesia management and issues during anesthesi a 6. Set expectations for post-procedure p eriod 7. Allowed opportunity for questions and ac knowledgement of understanding. 1212 An Stop Name Total ePHEDrine pre-filled syringe 5 mg fentanyl citrate (PF) injection 175 mcg ketAMINE 5 mL prefilled syringe 50 mg ondansetron (PF) (ZOFRAN) injection 4 mg phenylephrine pre-filled syringe 700 mcg propOFol (DIPRIVAN) injection 300 mg rocuronium 10 mg/mL vial 90 mg sugammadex 100 mg/mL 2 mL vial 200 mg insulin regular (NOVOLIN R) 100 Units in sodium chlori de (NS) 0.9 % 100 mL 9.07 Units infusion insulin regular pre-filled syringe 5 units 3 Units lactated ringers (LR) infusion 1,400 mL Agents Name Insp Sevoflurane Exp Sevoflurane O2 N2O Air Cumulated Iso Consumption Blood No blood administrations on file. Lines, Drains, and Airways Type Details Placement Removal Full Thickness 04/08/09; Surgical; 04/08/09 0000 by Scrotum; (surgically Nacny Radford RN applied) Wound 12/07/19; 0937; Incision; 12/07/19 0937 by Penis; Remove and replace Sara Escobar RN penile implant ; N Urethral Catheter 12/07/19; 0940; In OR by 12/07/19 0940 by MD; Intraoperative Sara Escobar RN monitoring, Selected surgical procedures/Epidural; Non-latex; 16 fr; 10 ml; Yes Peripheral IV 12/07/19; 0653; 20; Left, 12/07/19 0653 by 12/07 1105 by Dorsal; Hand; Inserted by Alejandra Ackerman RN Dello rco, Sara RN RN; 1; None; 12/08/19; 1105; Discharged; No complications, Catheter intact, Dressing applied Peripheral IV 12/07/19; 0702; 20; Left, 12/07/19 0702 by 12/07 1105 by Dorsal; Forearm; Inserted Alejandra Ackerman RN Dello rco, Sara RN by RN; 1; None; 3.15% Chlorhexidine with IPA; 12/08/19; 1105; Discharged; No complications, Catheter intact, Dressing applied Non-Surgical Airway 12/07/19; 0917 (created 12/07/19 0917 by 01/15 1156 by via procedure Josue Yu, Quinten Yu, documentation); 12/07/19; ERWIN SOLE SKIVER 1156 documented in this encounter Social History Tobacco Use Types Packs/Day Years [...] making decisions? documented as of this encounter OR Notes Anesthesia Postprocedure Evaluation - Josue Yu CRNA - 12/07/2019 1212 EDT Patient: Avery Padilla Vital signs were reviewed with the recovery nurse. Complete vitals history is available in the Epic flowsheets. Vitals Value Taken Time BP 115/66 12/07/19 1202 Temp 36.1 12/07/19 1212 Resp 19 12/07/19 1210 Pulse From Oximetry 72 BPM 12/07/19 1210 SpO2 100 % 12/07/19 1210 Vitals shown include unvalidated device data. Last Pain Score - Numeric Pain Level (Scale 1-10): 0 Type of Anesthesia - general Anesthesia Post Evaluation Post-procedure vitals reviewed and are stable. Level of consciousness: awake and alert and oriented Temperature status: normothermia and patient returned to pre-procedure baseline Respiratory status: airway patent and stable Cardiovascular status: stable Hydration status: adequate Nausea/Vomiting: none Pain management: adequate Post-Op Assessment: patient tolerated procedure well with no complications Patient participation: able to participate Disposition: outpatient/home Anesthesia Complications: No apparent anesthesia complications Anesthesia Procedure Notes - Josue Yu CRNA - 12/07/2019 0915 EDT Associated Order(s): Airway Airway Date/Time: 12/07/2019 9:03 Urgency: elective General Information and Staff Patient location during procedure: OR Performed: anesthesiologist Indications and Patient Condition Indications for airway management: anesthesia Sedation level: GA Preoxygenated: yes Patient position: sniffing Ventilation assessment: 1 - Easy Final Airway Details Final airway type: endotracheal airway Successful airway: ETT Cuffed: yes Successful intubation technique: direct laryngoscopy Facilitating devices/methods: intubating stylet Endotracheal tube insertion site: oral Blade: Brown Blade size: #3 ETT size (mm): 7.5 Cormack-Lehane Classification: grade IIa - partial view of glottis Placement verified by: chest auscultation and capnometry Measured from: lips Number of attempts at approach: 2 Additional Comments First intubation attempted by medical student, unable to visualize VC. Successfully intubation performed by attending MD Anesthesia Preprocedure Evaluation - Ronnie Nelson MD - 12/07/2019 0752 EDT Anesthesia Preprocedure Evaluation Patient Medical History, including Anesthesia History reviewed. Chart and Nursing Notes reviewed, including NPO status and Medication History. Additional ROS/History Findings: Allergies Allergen Reactions ??? Demerol [Meperidine] Nausea And Vomiting Review of Systems All other systems reviewed and are negative. Past Medical History: Diagnosis Date ??? Diabetes mellitus ([facility]) 11/17/19 on oral meds ??? Exercise involving walking ??? History of general anesthesia 11/16/19 no issues ??? Hypertension 11/17/19 Treated with meds, good results ??? Patient unable to exercise 11/17/19 walks less due to COVID Relevant Problems No relevant active problems Physical Exam Airway Mallampati: III TM distance: >3 FB Neck ROM: full Cardiovascular Rhythm: regular Dental Comments: mULTIPLE MISSING LOWER TEETH Pulmonary Breath sounds clear to auscultation Abdominal Anesthesia Plan ASA 3 Anesthesia Type - general Anesthesia plan and risks discussed. Informed consent obtained from patient. The preoperative history and physical which was performed within 30 days of this procedure, has beenreviewed and the clinically appropriate elements of the physical examination have been repeated. There are no changes to the documented history and physical or, if so, such changes are documented in this note PAT Note (Notes from 11/07/19 through 12/07/19) PAT Note by Prabha Hoyos RN at 11/17/2019 14:00 Version 1 of 1 COVID 19 Screening Perioperative at time of [...] instruct them to call us back at [phone] to report symptoms (If patient is in [...] mask for pickup documented in this encounter Miscellaneous Notes Addendum Note - Josue Yu CRNA - 12/07/2019 3242 EDT Addendum created 12/07/19 1352 by Josue Yu CRNA Intraprocedure Meds edited documented in this encounter Plan of Treatment Upcoming Encounters Date Type Specialty Care Team Description 10/27/2021 Telemedicine Nephrology Rebekah Miller MD 1 [facility], Level [address] [place], [place] [phone] (Wo rk) documented as of this encounter Procedures Procedure Name Priority Date/Time Associated Comments Diagnosis ANESTHESIA Routine 12/07/2019 9:15 EDT Results for this INTUBATION procedure are i n the results section. documented in this encounter Results DC AN ELECTIVE ENDOTRACHEAL AIRWAY (12/07/2019 9:15 EDT) Narrative Josue Yu CRNA - 12/07/2019 9:1 5 EDT Josue Yu CRNA ? 12/07/2019 ??9:17 Airway Date/Time: 12/07/2019 9:03 Urgency: elective General Information and Staff Patient location during procedure: OR Performed: anesthesiologist Indications and Patient Condition Indications for airway management: anest hesia Sedation level: GA Preoxygenated: yes Patient position: sniffing Ventilation assessment: 1 - Easy Final Airway Details Final airway type: endotracheal airway Successful airway: ETT Cuffed: yes Successful intubation technique: direct laryngoscopy Facilitating devices/methods: intubating stylet Endotracheal tube insertion site: oral Blade: Brown Blade size: #3 ETT size (mm): 7.5 Cormack-Lehane Classification: grade IIa - partial view of glottis Placement verified by: chest auscultatio n and capnometry Measured from: lips Number of attempts at approach: 2 Additional Comments First intubation attempted by medical [facility], unable to visualize VC. Successfully intubation performed by att ending documented in this encounter Visit Diagnoses Not on filedocumented in this encounter Administered Medications Inactive Administered Medications - up to 3 most recent administrations Medication Order MAR Action Action Date Dose Rate Site ePHEDrine injection 25 mg/5 mL syringe Given 12/07/2019 10:39 EDT 5 mg PRN, Starting on Flori 12/07/19 at 1039, Until Flori 12/07/19 at 1212, Routine, Anesthesia Intraprocedure fentaNYL citrate (PF) injection Given 12/07/2019 11:32 EDT 25 mcg PRN, Starting on Flori 12/07/19 at 0900, Until Flori 12/07/19 at 1212, Routine, Anesthesia Intraprocedure Given 12/07/2019 11:23 EDT 25 mcg Given 12/07/2019 11:12 EDT 25 mcg insulin regular (NOVOLIN R) 100 Rate Change 12/07/2019 11:01 EDT 5 Units/hr 5 mL/hr Units in sodium chloride (NS) 0.9 % 100 mL infusion FA IP EQF CONTINUOUS PRN FOR ONE STEP MEDS, Starting on Flori 12/07/19 at 0958, Until Flori 12/07/19 at 1212, Routine, Anesthesia Intraprocedure New Bag 12/07/2019 9:58 EDT 3 Units/hr 3 mL/hr insulin regular (NOVOLIN R) injection Given 12/07/2019 11:00 EDT 3 Units PRN, Starting on Flori 12/07/19 at 1100, Until Flori 12/07/19 at 1212, Routine, Anesthesia Intraprocedure ketAMINE in NaCl, iso-osmotic (KETALAR) 50 mg/5 Given 2019 9:00 EDT 50 mg mL (10 mg/mL) IV injection PRN, Starting on Flori 12/07/19 at 0900, Until Flori 12/07/19 at 1212, Routine, Anesthesia Intraprocedure lactated ringers (LR) infusion New Bag 12/07/2019 10:49 EDT at 30 mL/hr, 30 mL/hr, intravenous, CONTINUOUS, Starting on Flori 12/07/19 at 0730, Until Wed12/08/19 at 1329, Routine, Preprocedure Continued by Anesthesia 12/07/2019 8:50 EDT New Bag 12/07/2019 7:02 EDT 30 mL/hr 30 mL/hr ondansetron (PF) (ZOFRAN) injection Given 12/07/2019 11:07 EDT 4 mg PRN, Starting on Flori 12/07/19 at 1107, Until Flori 12/07/19 at 1212, Routine, Anesthesia Intraprocedure phenylephrine HCl in 0.9% NaCl injection Given 12/07/2019 10:41 EDT 100 mcg PRN, Starting on Flori 12/07/19 at 0920, Until Flori 12/07/19 at 1212, Routine, Anesthesia Intraprocedure Given 12/07/2019 10:29 EDT 100 mcg Given 12/07/2019 9:40 EDT 100 mcg propOFol (DIPRIVAN) injection Given 12/07/2019 9:00 EDT 300 mg PRN, Starting on Flori 12/07/19 at 0900, Until Flori 12/07/19 at 1212, Routine, Anesthesia Intraprocedure rocuronium (ZEMURON) injection Given 12/07/2019 10:02 EDT 10 mg PRN, Starting on Flori 12/07/19 at 0900, Until Flori 12/07/19 at 1212, Routine, Anesthesia Intraprocedure Given 12/07/2019 9:00 EDT 80 mg sugammadex (BRIDION) injection Given 12/07/2019 11:52 EDT 200 mg PRN, Starting on Flori 12/07/19 at 1152, Until Flori 12/07/19 at 1212, Routine, Anesthesia Intraprocedure documented in this encounter Care Teams Android Ui Developer Relationship Specialty Start Date End Date Priscilla Robert MD PCP - General 11/30/[address] [place] [phone] documented as of this encounter
--- OUTSIDE RECORDS SUMMARY | 2021-10-14 08:48 | XMS_ITS | Encounter Summary ---
:1950 Author Organization [facility] Address [address] [place] [address] Care Team Providers Name Role Phone Priscilla Robert MD Primary Care Provider Encounter Details Date Type Department Care Team Description 12/03/2019 Lab Requisition [facility] Outr Resulting Lab, Pathology & Laboratory Provider [facility] [address], [place] [phone] Social History Tobacco Use Types Packs/Day Years [...] 10/27/2021 Telemedicine Nephrology Rebekah Miller MD 1 [facility], Level [address] [place], [place] [phone] (Wo rk) documented as of this encounter Procedures Procedure Name Priority Date/Time Associated Comments Diagnosis DO NOT ORDER Today 12/03/2019 10:10 Results for this STANDALONE - BROAD EDT procedure are in COVID TEST the results section. COVID-19 TESTING Routine 12/03/2019 10:10 Results for this EDT procedure are i n the results section. documented in this encounter Results DO NOT ORDER STANDALONE - BROAD COVID TEST (12/03/2019 10:10 EDT) COVID-19 rt-PCR NEGATIVE Negative [facility] Result Comment: LABORATORY 2019-novel Coronavirus (2019 -nCoV) not detected by the qRT-PCR assay. Consider testing for other respiratory viruses or re-collecting for 2019-nCoV testing. Note: Optimum timing for peak viral levels du ring infections caused by 20 -nCoV have not been determined. Collection of multiple specimens from the same patient may be necessary to detect the virus. Limitations Positive results are indicat carlton of active infection with SARS-CoV-2 but do not rule out bacterial infection or co-infection with other viruses. The agent detected may not be the definite cause of diseas e. In addition, detection of viral RNA may not indicate the presence of infectious virus or that SARS-CoV-2 is the causative agent for clinical symptoms. Negative results do not prec lude SARS-CoV-2 infection and should not be used as the sole basis for patient management decisions. Negative results must be combined with clinical observations, patient his tory, and epidemiological in formation. False negative results may also occur if amplification inhibitors are present in the specimen or if inadequate numbers of organisms are present in the specimen. Op timum specimen types and jordan ing for peak viral levels during infections caused by SARS-CoV-2 have not been fully determined. Collection of multiple specimens (types and time points) from the same patient may be necessary to detect the virus. The test was validated for u se with upper respiratory specimens obtained via nasopharyngeal or oropharyngeal swabs in VTM, UTM, M4, M5, M6, saline, and MTM media. The performance of this test has not be en established for other spe cimens. Specimens collected using other FDA recommended Specimen Collection Materials listed in the FDA COVID-19 [employer] communication (June 22, 2019) are pr ocessed with the caveat that they were not all validated for use with this test and the result must be interpreted in this context. Furthermore, a false negative results may occur if a specimen is improperly collected, transported or handled. If the virus mutates in the RT-PCR target region, SARS-CoV-2 may not be detected or may be detected less predictably. Inhibitors or other types of interference may produce a false negative result. An interference study evaluating the effect of common cold medications was not performed. This test is not FDA-cleared but its performance characteristics were established by our CLIA-certified, CAP-accredited, high complexity laboratory in accordance with CLIA regulations, [employer] (CAP) guidel aleja (Jun 15, 2019), and FDA guidance (May 27, 2019). This test is only for use un alen the Food and Drug Administration's Emergency Use Authorization. Specimen Swab - Entire nasopharynx (body structur e) Performing Organization Address City/State/ZIP Code Phon e Number [facility] [place] COVID-19 TESTING (12/03/2019 10:10 EDT) COVID-19 rt-PCR NEGATIVE Negative [facility] Result Comment: LABORATORY 2019-novel Coronavirus (2019 -nCoV) not detected by the qRT-PCR assay. Consider testing for other respiratory viruses or re-collecting for 2019-nCoV testing. Note: Optimum timing for peak viral levels du ring infections caused by 20 19-nCoV have not been determined. Collection of multiple specimens from the same patient may be necessary to detect the virus. Limitations Positive results are indicat carlton of active infection with SARS-CoV-2 but do not rule out bacterial infection or co-infection with other viruses. The agent detected may not be the definite cause of diseas e. In addition, detection of viral RNA may not indicate the presence of infectious virus or that SARS-CoV-2 is the causative agent for clinical symptoms. Negative results do not prec lude SARS-CoV-2 infection and should not be used as the sole basis for patient management decisions. Negative results must be combined with clinical observations, patient his tory, and epidemiological in formation. False negative results may also occur if amplification inhibitors are present in the specimen or if inadequate numbers of organisms are present in the specimen. Op timum specimen types and jordan ing for peak viral levels during infections caused by SARS-CoV-2 have not been fully determined. Collection of multiple specimens (types and time points) from the same patient may be necessary to detect the virus. The test was validated for u se with upper respiratory specimens obtained via nasopharyngeal or oropharyngeal swabs in VTM, UTM, M4, M5, M6, saline, and MTM media. The performance of this test has not be en established for other spe cimens. Specimens collected using other FDA recommended Specimen Collection Materials listed in the FDA COVID-19 [employer] communication (June 22, 2019) are pr ocessed with the caveat that they were not all validated for use with this test and the result must be interpreted in this context. Furthermore, a false negative results may occur if a specimen is improperly collected, transported or handled. If the virus mutates in the RT-PCR target region, SARS-CoV-2 may not be detected or may be detected less predictably. Inhibitors or other types of interference may produce a false negative result. An interference study evaluating the effect of common cold medications was not performed. This test is not FDA-cleared but its performance characteristics were established by our CLIA-certified, CAP-accredited, high complexity laboratory in accordance with CLIA regulations, [employer] of [employer] an [employer] (CAP) guidel aleja (Jun 15, 2019), and FDA guidance (May 27, 2019). This test is only for use un alen the Food and Drug Administration's Emergency Use Authorization. Performing Lab [facility] LABORATORY SERVICES Specimen Swab Performing Organization Address City/State/ZIP Code Phon e Number [facility] [address] [place] [address] SERVICES [facility] [place] documented in this encounter Visit Diagnoses Not on filedocumented in this encounter Additional Health Concerns Infection Onset Date Last Indicated Resolved Time MRSAComment: [facility] Inf Import 01/30/2021 01/30/2021 documented as of this encounter Care Teams Curator Of Photography And Prints Relationship Specialty Start Date End Date Prsicilla Robert MD PCP - General 11/30/19 [address] [place] [phone] documented as of this encounter
--- OUTSIDE RECORDS SUMMARY | 2021-10-14 08:48 | XMS_ITS | Encounter Summary ---
:1950 Author Organization [facility] Address [address] [place] [address] Care Team Providers Name Role Phone Priscilla Robert MD Primary Care Provider Encounter Details Date Type Department Care Team Description 12/07/2019 Travel Social History Tobacco Use Types Packs/Day Years [...] 10/27/2021 Telemedicine Nephrology Rebekah Miller MD 1 [facility], [address] [place], [place] [phone] (Wo rk) documented as of this encounter Visit Diagnoses Not on filedocumented in this encounter Care Teams Finishing Range Operator Relationship Specialty Start Date End Date Priscilla Robert MD PCP - General 11/30/[address] [place] [phone] documented as of this encounter
--- OUTSIDE RECORDS SUMMARY | 2021-10-14 08:48 | XMS_ITS | Encounter Summary ---
:1950 Author Organization [facility] Address [address] [place] [address] Care Team Providers Name Role Phone Brenden Salcedo MD Primary Care Provider Encounter Details Date Type Department Care Team Description 07/02/2016 Orders Only [facility] Nacho Barrow BPH w [facility] urinary Urology - Medical MD Anoop obstruction (Primary Office Building [address] [facility]) [address] [facility] [address] [facility], [place] [address] [address], [place] [address] (Wo rk) Social History Tobacco [...] MD 1 [facility][1], [address] [place], [place] [phone] (Wo rk) documented as of this encounter Visit Diagnoses Diagnosis BPH with urinary obstruction - Primary Hypertrophy of prostate with urinary obs truction and other lower urinary tract symptoms (LUTS) documented in this encounter Care Teams Hog Dropper Relationship Specialty Start Date End Date Brenden Salcedo MD PCP - General 03/21/14 07/02/16 documented as of this encounter
--- OUTSIDE RECORDS SUMMARY | 2021-10-14 08:48 | XMS_ITS | Encounter Summary ---
:1950 Author Organization [facility] Address [address] [place] [address] Care Team Providers Name Role Phone Priscilla Robert MD Primary Care Provider Reason for Visit Reason Onset Date Comments Results 12/06/2019 Encounter Details Date Type Department Care Team Description 12/06/2019 Telephone [facility] Urology [address] An[place], Results - Medical Office Christelle garza MD 2 [facility], [id number] [place] [address], [place] [phone] (Wo rk) Social History Tobacco Use Types [...] this encounter Miscellaneous Notes Telephone Encounter - Bouchra Núñez RN - 12/06/2019 0894 EDT Patient aware of negative Covid results elephone Encounter - Alejandra Pitts MA - 12/06/2019 0830 EDT Pt is calling for COVID test results prior to his Sx tomorrow with Dr. Barrow. documented in this encounter Plan of Treatment Upcoming Encounters Date Type Specialty Care Team Description 10/27/2021 Telemedicine Nephrology Rebekah Miller MD 1 [facility], Level 2 [place] [phone] (Wo rk) documented as of this encounter Visit Diagnoses Not on filedocumented in this encounter Care Teams Club Licensee Relationship Specialty Start Date End Date Priscilla Robert MD PCP - General 11/30/[address] [place] [phone] documented as of this encounter
--- OUTSIDE RECORDS SUMMARY | 2021-10-14 08:48 | XMS_ITS | Encounter Summary ---
:1950 Author Organization [facility] Address [address] [place] [address] Care Team Providers Name Role Phone Priscilla Robert MD Primary Care Provider Reason for Visit Reason Onset Date Comments Labs Only 12/14/2019 Encounter Details Date Type Department Care Team Description 12/14/2019 Telephone [facility] Urology [address] [place], Labs Only - [facility] MD 111 [facility] 111 [place], [place] [phone] [place] [address] [facility] 5 [place], [place] [phone] (Wo rk) Social History [...] Telephone Encounter - Analilia Pelayo MA - 12/14/2019 0939 EDT Order for BMP faxed to [facility] at [phone]. documented in this encounter Plan of Treatment Upcoming Encounters Date Type Specialty Care Team Description 10/27/2021 Telemedicine Nephrology Rebekah Miller MD 1 [facility], Level 2 [place], [place] [phone] (Wo rk) documented as of this encounter Visit Diagnoses Not on filedocumented in this encounter Care Teams Object Oriented Developer Relationship Specialty Start Date End Date Priscilla Robert MD PCP - General 11/30/19 26 [place] [address] documented as of this encounter
--- OUTSIDE RECORDS SUMMARY | 2021-10-14 08:48 | XMS_ITS | Encounter Summary ---
:1950 Author Organization [facility] Address [address] [place] [address] Care Team Providers Name Role Phone None, Provider Primary Care Provider Unavailable Reason for Visit Reason Onset Date Comments Medications Refill 10/09/2016 Tamsulosin Encounter Details Date Type Department Care Team Description 10/09/2016 Refill [facility] Nacho Barrow Medic ations Refill Urology - [facility] Eduard Davalos MD (Tamsulosin) 111 [facility] [address] [phone] [facility] 5 [place] [phone] (Wo rk) Social History Tobacco Use Types [...] 1 Cap by mouth 90 Cap 3 10/09/2016 09/21/2017 capsule daily. documented in this encounter Miscellaneous Notes Telephone Encounter - Bouchra Núñez, RN - 10/09/2016 1310 EDT flomax refilled per documentation escribed to [facility] elephone Encounter - Analilia Pelayo - 10/09/2016 1039 EDT Last filled 07/06/16 given #90 with no refills LV 07/06/16 - per RTG continue Flomax [place] needs one year 06/2017 documented in this encounter Plan of Treatment Upcoming Encounters Date Type Specialty Care Team Description 10/27/2021 Telemedicine Nephrology Rebekah Miller MD 1 [facility], Level [address] [place] [phone] (Wo rk) documented as of this encounter Visit Diagnoses Not on filedocumented in this encounter Discontinued Medications Medication Sig Discontinue Reason Start Date End Date tamsulosin (FLOMAX) 0.4 Take 1 Cap by mouth Reorder 07/06/2016 10/09/2016 mg capsule daily. documented as of this encounter Care Teams Director Digital Relationship Specialty Start Date End Date None, Provider PCP - General 07/03/16 11/29/19 documented as of this encounter
--- OUTSIDE RECORDS SUMMARY | 2021-10-14 08:48 | XMS_ITS | Encounter Summary ---
:1950 Author Organization [facility] Address [address] [place] [address] Care Team Providers Name Role Phone Brenden Salcedo MD Primary Care Provider Reason for Visit Reason Onset Date Comments Yearly (PSA) 05/14/2015 Encounter Details Date Type Department Care Team Description 05/14/2015 Telephone [facility] Urology [address], Yearly (PSA) - Medical Office Christelle garza MD 2 [facility], [phone] [place] [address], [place], [place] [phone] (Wo rk) Social History [...] this encounter Miscellaneous Notes Telephone Encounter - Alena Castro - 05/14/2015 5216 EST Called pt to remind him to have his PSA blood test done for his appt on 05/27/[address] Barrow, he would like it done [place] [facility] so I faxed the PSA order there to [facility] for him. Thanks documented in this encounter Plan of Treatment Upcoming Encounters Date Type Specialty Care Team Description 10/27/2021 Telemedicine Nephrology Rebekah Miller MD 1 [facility], Level 2 [place], [place] [phone] (Wo rk) documented as of this encounter Visit Diagnoses Not on filedocumented in this encounter Care Teams Coil Winder Strap Relationship Specialty Start Date End Date Brenden Salcedo MD PCP - General 03/21/14 07/02/16 documented as of this encounter
--- OUTSIDE RECORDS SUMMARY | 2021-10-14 08:48 | XMS_ITS | Encounter Summary ---
:1950 Author Organization [facility] Address [address] [place] [address] Care Team Providers Name Role Phone None, Provider Primary Care Provider Unavailable Reason for Visit Reason Comments Follow-up 1 year PSA, PVR Encounter Details Date Type Department Care Team Description 10/19/2017 Office Visit [facility] Nacho Barrow arterial insufficiency and corporo-venous occlusive erectile dysfunction (Primary Dx); Urology - Medical MD Anoop BPH with urinary obstruction; Office Building [address] [facility], [place], [place] [address] [place] [address], [place] [address] (Wo rk) Social History Tobacco [...] as of this encounter Discharge Diagnoses Diagnosis N52.03 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 tamsulosin (FLOMAX) 0.4 Take 1 Cap by mouth 90 Cap 0 10/24/2019 mg capsule daily. sildenafil citrate Take 1 Tab by mouth 30 Tab 11 10/20/19 18 10/24/2019 (VIAGRA) 100 mg tablet as needed for Erectile Dysfunction. documented in this encounter Discharge Disposition Disposition Code Departure Means Destination Auto Discharge documented in this encounter Progress Notes Nacho Barrow MD - 10/19/2017 0900 EDT Images from the original note were not included. Subjective: Patient ID: Avery Padilla is an [address] Provider None has requested that I see Avery Padilla in consultation for Follow-up (1 year PSA, PVR). HPI He returns today for follow-up of his ED and BPH . He has been on Flomax with excellent tolerance and efficacy. He has an AUA ss of . He has treated ED with an implant ( S/P revision 9 years ago) that he supplements with Sildenafil [...] family history on file. Social Social History Substance Use Topics ??? Smoking status: Never Smoker ??? Smokeless tobacco: Never Used ??? Alcohol use No Current Outpatient Prescriptions on File Prior [...] by mouth 2 times daily. ??? sildenafil (REVATIO) 20 mg tablet One to five daily prn. 90 Tab 11 ??? tamsulosin (FLOMAX) 0.4 mg [...] and thought content normal. Office Visit on 10/19/2017 Component Date Value Ref Range Status ??? Color 10/19/2017 YELLOW Final ??? Clarity, UA 10/19/2017 Clear Final ??? Glucose 10/19/2017 2+* Neg Final ??? Bilirubin 10/19/2017 Neg Neg Final ??? Ketones 10/19/2017 Neg Neg Final ??? Specific [place] 10/19/2017 1.010 1.001 - 1.035 Final ??? Blood 10/19/2017 Trace* Neg Final ??? pH 10/19/2017 5.0 4.6 - 8.0 Final ??? Protein 10/19/2017 2+* Neg Final ??? Urobilinogen 10/19/2017 0.2 0.2 - 1.0 E.U./dl Final ??? Nitrite 10/19/2017 Neg Neg Final ??? Leuk Esterase 10/19/2017 Neg Neg Final ??? Tech ID 10/19/2017 [id number] Final Test performed at [facility] Urology ??? Bladder Scan 10/19/2017 79ml Final PSA: Lab Results Component Value Date PSA 1.8 02/15/2013 PSA CVH 2.66 10/05/17 BMP: No results found for: NA, K, CL, CO2, BUN, CREATININE, CALCIUM, CALCCA, MG, PHOS, LABALBU Assessment / Plan: 1. Combined arterial insufficiency and corporo-venous occlusive erectile dysfunction 2. BPH with urinary obstruction 3. Balanitis He has done well. He will return in 1 year. Continue on the Flomax ,lotrisone and sildenafil. No orders of the defined types were placed in this encounter. Nacho Barrow MD documented in this encounter Plan of Treatment Upcoming Encounters Date Type Specialty Care Team Description 10/27/2021 Telemedicine Nephrology Rebekah Miller MD 1 [facility], Level 2 [place], [place] [phone] (Wo rk) documented as of this encounter Procedures Procedure Name Priority Date/Time Associated Diagnosis Comme nts POCT URINE Routine 10/19/2017 9:06 EDT BPH with urinary Resu lts for this DIPSTICK, CLINITEK obstruction procedure are in the results section. UROLOGY BLADDER Routine 10/19/2017 8:59 EDT BPH with urinary R esults for this SCAN obstruction procedure are i n the results section. documented in this encounter Results (ABNORMAL) POCT URINE DIPSTICK (10/19/2017 9:06 EDT) Color YELLOW [facility] Clarity, UA Clear [facility] Glucose 2+ (A) Neg [facility] Bilirubin Neg Neg [facility] Ketones Neg [facility] Specific [place] 1.010 1.001 - 1.035 [facility] Blood Trace (A) [facility] pH 5.0 4.6 - 8.0 [facility] Protein 2+ (A) [facility] Urobilinogen 0.2 0.2 - 1.0 [facility] E.U./dl LABORATORY SERVICES Nitrite Neg [facility] Leuk Esterase Neg [facility]ORAT[facility] sales program manager ID [id number]: [facility] Test performed at LABORATORY [facility] SERVICES Urology Specimen Urine (substance) - Urine Performing Organization Address City/State/ZIP Code Phon e Number [facility] [address] [place] [address] SERVICES UROLOGY BLADDER SCAN (10/19/2017 8:59 EDT) Pathologist Sig nature Bladder Scan 79ml POINT OF CARE [facility] Specimen Urine (substance) Performing Organization Address City/State/ZIP Code Phon [facility] Number [facility] documented in this encounter Visit Diagnoses Diagnosis Combined arterial insufficiency and nomi vaughn-venous occlusive erectile dysfunction - Primary 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 Patient Stopped Taking 10/19/2017 VITAMIN D2, (VITAMIN D Reported on ORAL) 07/06/2016 oxycodone-acetaminophe Take 2 Tabs by Patient Stopped Taking 200910/19/2017 n (PERCOCET) 5-325 mg mouth every 4 hours per tablet as needed for Pain. oxycodone-acetaminophe Take 1-2 Tabs by Patient Stopped Taking 03/2910/19/2017 n (PERCOCET) 5-325 mg mouth every 4 hours per tablet as needed for Pain. sildenafil citrate Take 1 Tab by mouth Patient Stopped Taking 03/2010/19/2017 (VIAGRA) 100 mg tablet as needed for Erectile Dysfunction. simvastatin (ZOCOR) 40 Take 40 mg by mouth Patient Stopped Taking 10/19/2017 mg tablet daily. Reported on 07/06/2016 valsartan (DIOVAN) 80 Take 80 mg by mouth Patient Stopped Taking 10/19/2017 mg tablet daily. Reported on 07/06/2016 sildenafil (REVATIO) One to five daily 07/06/2016 20 mg tablet prn. clotrimazole-betametha Apply to affected Reorder 07/06/2016 10/19/2017 sone (LOTRISONE) cream area twice daily as needed. tamsulosin (FLOMAX) Take 1 Cap by mouth Reorder 09/21/2017 0 10/19/2017 0.4 mg capsule daily. documented as of this encounter Care Teams Client Relations Specialist Relationship Specialty Start Date End Date None, Provider PCP - General 07/03/16 11/29/19 documented as of this encounter
--- OUTSIDE RECORDS SUMMARY | 2021-10-14 08:48 | XMS_ITS | Encounter Summary ---
:1950 Author Organization [facility] Address [address] [place] [address] Care Team Providers Name Role Phone None, Provider Primary Care Provider Unavailable Reason for Visit Reason Comments Follow-up 1 year Encounter Details Date Type Department Care Team Description 07/06/2016 Office Visit [facility] Nacho Barrow w ith urinary obstruction (Primary Dx); Urology - Medical MD Anoop Combined arterial insufficiency and nomi vaughn-venous occlusive erectile dysfunction; Office Building [address] [place] [address] [address] [facility], [place], [place] [address] [place], [place] [address], [place] [address] (Wo rk) Social History Tobacco [...] of this encounter Discharge Diagnoses Diagnosis N40.1 Benign prostatic hyperplasia with lower urinary tract symp-N40.1[ICD-10-CM] N52.03 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 sildenafil (REVATIO) 20 One to five daily 90 Tab 11 07/0610/19/2017 mg tablet prn. clotrimazole-betamethason Apply to affected 1 Tube 0 12/201610/19/2017 e (LOTRISONE) cream area twice daily as needed. documented in this encounter Discharge Disposition Disposition Code Departure Means Destination Auto Discharge documented in this encounter Progress Notes Nacho Barrow MD - 07/06/2016 1145 EDT Images from the original note were not included. Subjective: Patient ID: Avery Padilla is an [address] Brenden Salcedo has requested that I see Avery Padilla in consultation for Follow-up (1 year). HPI He returns today for follow-up of [...] Medical History: Diagnosis Date ??? Diabetes mellitus ??? Hypertension Past Surgical History: Procedure Laterality Date ??? OTHER SURGICAL HISTORY 2003 IPP Insertion No family history on file. Social Social History Substance Use Topics ??? Smoking status: Never Smoker ??? Smokeless tobacco: None ??? Alcohol use No Current Outpatient Prescriptions [...] D2, (VITAMIN D ORAL) Take by mouth. Reported on 07/06/2016 ??? glipiZIDE (GLUCOTROL) 10 mg tablet Take 10 mg by mouth daily. ??? lisinopril (PRINIVIL, ZESTRIL) 20 mg tablet Take 20 mg by mouth daily. Takes in am ??? metFORMIN (GLUCOPHAGE) 1,000 mg tablet Take 1,000 mg by mouth 2 times daily. ??? oxycodone-acetaminophen (PERCOCET) 5-325 mg per tablet Take 1-2 Tabs by mouth every 4 hours as needed for Pain. (Patient not taking: Reported on 07/06/2016) 50 Tab 0 ??? oxycodone-acetaminophen (PERCOCET) 5-325 mg per tablet Take 2 Tabs by mouth every 4 hours as needed for Pain. (Patient not taking: Reported on 07/06/2016) 35 Tab 0 ??? sildenafil (REVATIO) 20 mg tablet One to five daily prn. 90 Tab 11 ??? sildenafil citrate (VIAGRA) 100 mg tablet Take 1 Tab by mouth as needed for Erectile Dysfunction. (Patient not taking: Reported on 07/06/2016) 8 Tab 11 ??? simvastatin (ZOCOR) 40 mg tablet Take 40 mg by mouth daily. Reported on 07/06/2016 ??? tamsulosin (FLOMAX) 0.4 mg capsule Take 1 Cap by mouth daily. 90 Cap 0 ??? valsartan (DIOVAN) 80 mg tablet Take 80 mg by mouth daily. Reported on 07/06/2016 No current facility-administered medications on file prior [...] visit. Latest known visit with results is: Office Visit on 05/27/2015 Component Date Value Ref Range Status ??? Color 05/27/2015 YELLOW Final ??? Clarity, UA 05/27/2015 Clear Final ??? Glucose 05/27/2015 Neg Neg Final ??? Bilirubin 05/27/2015 Neg Neg Final ??? Ketones 05/27/2015 Neg Neg Final ? ? Specific [place] 05/27/2015 <=1.005 1.001 - 1.035 Final ??? Blood 05/27/2015 Neg Neg Final ??? pH 05/27/2015 5.5 4.6 - 8.0 Final ??? Protein 05/27/2015 Neg Neg Final ??? Urobilinogen 05/27/2015 0.2 0.2 - 1.0 E.U./dl Final ??? Nitrite 05/27/2015 Neg Neg Final ??? Leuk Esterase 05/27/2015 Neg Neg Final ??? Tech ID 05/27/2015 [id number] Final Test performed at [facility] Urology ??? Bladder Scan 05/27/2015 95ml Final PSA: Lab Results Component Value Date PSA 1.8 02/15/2013 BMP: No results found for: NA, K, CL, CO2, BUN, CREATININE, CALCIUM, CALCCA, MG, PHOS, LABALBU Assessment / Plan: 1. BPH with urinary obstruction 2. Combined arterial insufficiency and corporo-venous occlusive erectile dysfunction 3. Balanitis He has done well. He will return in 1 year. Continue on the Flomax and Sildenafil. Continue the Lotrisone No orders of the defined types were placed in this encounter. Nacho Barrow MD documented in this encounter Plan of Treatment Upcoming Encounters Date Type Specialty Care Team Description 10/27/2021 Telemedicine Nephrology Rebekah Miller MD 1 [facility] Level 2 [place], [place] [phone] (Wo rk) documented as of this encounter Visit Diagnoses Diagnosis BPH with urinary obstruction - Primary Hypertrophy of prostate with urinary obs truction and other lower urinary tract symptoms (LUTS) Combined arterial insufficiency and nomi vaughn-venous occlusive erectile dysfunction Impotence of organic origin Balanitis Balanoposthitis documented in this encounter Discontinued Medications Medication Sig Discontinue Reason Start Date End Date clotrimazole-betamethas Apply to affected Reorder 04/16/2014 07/06/2016 one (LOTRISONE) cream area twice daily as needed.. sildenafil (REVATIO) 20 One to five daily Reorder 05/27/2015 07/06/2016 mg tablet prn. tamsulosin (FLOMAX) 0.4 Take 1 Cap by mouth Reorder 05/26/2016 07/06/2016 mg capsule daily. documented as of this encounter Care Teams Healthcare Customer Service Relationship Specialty Start Date End Date None, Provider PCP - General 07/03/16 11/29/19 documented as of this encounter
--- OUTSIDE RECORDS SUMMARY | 2021-10-14 08:49 | XMS_ITS | Encounter Summary ---
:1950 Author Organization [facility] Address [address] [place] [address] Care Team Providers Name Role Phone None, Provider Primary Care Provider Unavailable Reason for Visit Reason Onset Date Comments Medications Refill 03/20/2013 Encounter Details Date Type Department Care Team Description 03/20/2013 Telephone [facility] Nicole Traore M edications Refill Urology - Medical Office [employer] Building [address] [place] [address] [phone] [place], [place] [address] [phone] Social History Tobacco Use Types Packs/Day Years [...] sildenafil citrate Take 1 Tab by mouth 8 Tab 11 03/20/20 13 10/19/2017 (VIAGRA) 100 mg tablet as needed for Erectile Dysfunction. documented in this encounter Miscellaneous Notes Telephone Encounter - Alejandra Pitts - 03/20/2013 1414 EST Patient's insurance won't pay for cialis, but they will pay for viagra. He would like to try that, and wanats to know if it can be changed. Please let him know if he can get this med. documented in this encounter Plan of Treatment Upcoming Encounters Date Type Specialty Care Team Description 10/27/2021 Telemedicine Nephrology Rebekah Miller MD 1 [facility], Level [address] [place], [place] [address] (Wo rk) documented as of this encounter Visit Diagnoses Not on filedocumented in this encounter Discontinued Medications Medication Sig Discontinue Reason Start Date End Date tadalafil (CIALIS) 20 Take 1 Tab by mouth Cost of medication 201203/20/2013 mg tablet as needed for Erectile Dysfunction. documented as of this encounter Care Teams Filling Hauler Relationship Specialty Start Date End Date None, Provider PCP - General 02/15/13 03/20/14 documented as of this encounter
--- OUTSIDE RECORDS SUMMARY | 2021-10-14 08:49 | XMS_ITS | Encounter Summary ---
:1950 Author Organization [facility] Address [address] [place] [address] Care Team Providers Name Role Phone None, Provider Primary Care Provider Unavailable Encounter Details Date Type Department Care Team Description 02/15/2013 Hospital Encounter [facility] MD Anoop [address] [address] [facility] [phone] Pavilion, Level 5 [place] [phone] (Wo rk) Social History Tobacco Use Types Packs/Day Years Used Date Never Assessed Sex Assigned at Date Recorded Not on file documented as of this encounter Functional Status Cognitive Status Response Date of Assessment Because of a physical, mental, or emotional condition, do Ye s 04/08/2009 you have serious difficulty concentrating, remembering, or making decisions? (5 years old or older) documented as of this encounter Discharge Diagnoses Diagnosis 790.93 ELEVATED PROSTATE SPECIFIC ANTIGE N (PSA)[ICD-9-CM] documented in this encounter Medications at Time of Discharge Medication Sig Dispensed Refills Start Date End Date amlodipine (NORVASC) 5 Take 10 mg by mouth 0 mg tablet daily. Reported on 07/06/2016 aspirin chewable 81 mg Take 1 Tab by mouth 1 Tab 0 03/29 tablet daily. Takes in am lisinopril (PRINIVIL, Take 20 mg by mouth 0 12/08/2019 ZESTRIL) 20 mg tablet daily. Takes in am oxycodone-acetaminophen Take 1-2 Tabs by 50 Tab 0 200910/19/2017 (PERCOCET) 5-325 mg per mouth every 4 hours tablet as needed for Pain. oxycodone-acetaminophen Take 2 Tabs by mouth 35 Tab 0 10/19/2017 (PERCOCET) 5-325 mg per every 4 hours as tablet needed for Pain. simvastatin (ZOCOR) 40 Take 40 mg by mouth 0 10/19/2017 mg tablet daily. Reported on 07/06/2016 documented as of this encounter Discharge Disposition Disposition Code Departure Means Destination Home or Self Snf documented in this encounter Plan of Treatment Upcoming Encounters Date Type Specialty Care Team Description 10/27/2021 Telemedicine Nephrology Rebekah Miller MD 1 [facility], Level 2 [place] [address] (Wo rk) documented as of this encounter Procedures Procedure Name Priority Date/Time Associated Comments Diagnosis PSA TOTAL, Routine 02/15/2013 16:02 Results for this DIAGNOSTIC EST procedure are i n the results section. URINE SEDIMENT Routine 02/15/2013 15:00 Results f or this (MICRO) WITHOUT EST procedure ar e in REFLEX TO CULTURE the result s section. documented in this encounter Results PSA (02/15/2013 16:02 EST) PSA 1.8 0 - 4.5 ng/ml [facility] Comment: LAB Serum PSA concentration should not be interpreted as absolute evidence for the presence or absence of malignant disease. Assayed utilizing [employer] chemiluminescent technology. ??Values obtained by using different assay methods cannot be used interchangeably. Specimen Performing Organization Address City/State/ZIP Code Phon e Number [facility] [address] [place] [address] SERVICES [facility] [address] [place] [address] (ABNORMAL) URINE MICROSCOPIC ONLY (02/15/2013 15:00 EST) WBC, UA less than 1 0 - 5 /HPF [facility] RBC, UA 1 to 5 0 - 5 /HPF [facility] Squam Epithel, UA Few (A) None seen [facility] /HPF LAB Renal Epithel, UA None seen None seen [facility] /[facility]PF LAB Bacteria, UA None seen None seen [facility] LAB Crystals, UA None seen /HPF [facility] Hyaline Casts, UA None seen /LPF [facility] UA Comment Microscopic results [facility] Comment: LAB are unreliable on urines unrefrig >2hrs or refrig >8hrs. Specimen Performing Organization Address City/State/ZIP Code Phon e Number [facility] [address] [place] [address] SERVICES [facility] [address] [place] [address] documented in this encounter Visit Diagnoses Not on filedocumented in this encounter Care Teams Shot Tube Machine Tender Relationship Specialty Start Date End Date None, Provider PCP - General 02/15/13 03/20/14 documented as of this encounter
--- OUTSIDE RECORDS SUMMARY | 2021-10-14 08:49 | XMS_ITS | Encounter Summary ---
:1950 Author Organization [facility] Address [address] [place] [address] Care Team Providers Name Role Phone Rakesh Rivers MD Primary Care Provider Encounter Details Date Type Department Care Team Description 03/27/2009 Orders Only [facility] Nacho Barrow, Laboratory Services - [address] [address] Pavilion, [place] [address] (Wo rk) Social History Tobacco Use Types Packs/Day Years Used Date Never Assessed Sex Assigned at Date Recorded Not on file documented as of this encounter Plan of Treatment Upcoming Encounters Date Type Specialty Care Team Description 10/27/2021 Telemedicine Nephrology Rebekah Miller MD [address] [place], [place] [id number], Level 2 [place], [place] [address] (Wo rk) documented as of this encounter Procedures Procedure Name Priority Date/Time Associated Diagnosis Comme nts COMPLETE BLOOD Routine 03/27/2009 14:00 Results f or this COUNT EST procedure are i n the results section. documented in this encounter Results HEMAGRAM (03/27/2009 14:00 EST) Pathologist [facility] nature WBC 8.56 4.0 - 10.4 K/cmm [facility] RBC 5.40 4.36 - 5.78 M/cmm [facility] Hemoglobin 16.8 13.8 - 17.3 gm/dl [facility] HCT 48.5 39.5 - 50.2 % [facility] MCV 90 81 - 95 fl [facility] MCH 31.0 27.6 - 33.0 pg [facility] MCHC 34.6 32.8 - 36.4 gm/dl [facility] PLT 175 141 - 320 K/cmm [facility] RDW-CV 12.9 11.8 - 14.1 % [facility] Specimen Performing Organization Address City/State/ZIP Code Phon e Number [facility] [address] [place] [address] SERVICES [facility] [address] [place] [address] documented in this encounter Visit Diagnoses Not on filedocumented in this encounter Care Teams Data Processing Operator Relationship Specialty Start Date End Date Rakesh Rivers MD PCP - General 03/04/09 04/03/[address] [address] documented as of this encounter
--- OUTSIDE RECORDS SUMMARY | 2021-10-14 08:49 | XMS_ITS | Encounter Summary ---
:1950 Author Organization [facility] Address [address] [place] [address] Care Team Providers Name Role Phone None, Provider Primary Care Provider Unavailable Encounter Details Date Type Department Care Team Description 02/15/2013 Phlebotomy Only [facility] - Acute Specialist, [facility] Outpatient [address] [place] [address] Social History Tobacco Use Types Packs/Day Years [...] Telemedicine Nephrology Rebekah Miller MD 1 [facility], Level 2 [place], [place] [address] (Wo rk) documented as of this encounter Visit Diagnoses Not on filedocumented in this encounter Care Teams Roulette Dealer Relationship Specialty Start Date End Date None, Provider PCP - General 02/15/13 03/20/14 documented as of this encounter
--- OUTSIDE RECORDS SUMMARY | 2021-10-14 08:49 | XMS_ITS | Encounter Summary ---
:1950 Author Organization [facility] Address [address] [place] [address] Care Team Providers Name Role Phone Unavailable Primary Care Provider Unavailable Encounter Details Date Type Department Care Team Description 04/10/2002 - Hospital Encounter [facility] Nacho Barrow 04/11/2002 Neurosurgery Unit MD Anoop 111 [facility] [address] [phone] [facility] Level [address] [place] [address] (Wo rk) Social History Tobacco Use Types Packs/Day Years Used Date Never Assessed Sex Assigned at Date Recorded Not on file documented as of this encounter Discharge Disposition Disposition Code Departure Means Destination Home or Self Care documented in this encounter Plan of Treatment Upcoming Encounters Date Type Specialty Care Team Description 10/27/2021 Telemedicine Nephrology Rebekah Miller MD 1 [facility], Level [address] [place], [place] [address] (Wo rk) documented as of this encounter Visit Diagnoses Not on filedocumented in this encounter
--- OUTSIDE RECORDS SUMMARY | 2021-10-14 08:49 | XMS_ITS | Encounter Summary ---
:1950 Author Organization [facility] Address [address] [place] [address] Care Team Providers Name Role Phone None, Provider Primary Care Provider Unavailable Reason for Visit Reason Comments Dysuria Urinary Frequency Encounter Details Date Type Department Care Team Description 03/16/2013 Office Visit [facility] Nicole Traore (Primary Dx) Urology - Medical R, ALUMINUM POLISHER Office Building [address] [place] [address] [phone] [place] [address] [phone] Social History Tobacco Use Types Packs/Day Years Used Date Never Smoker Tobacco Cessation: Counseling Given: Yes Alcohol Use [...] - Inhaled Oxygen Concentration - - Weight 117.9 kg (260 lb) 03/16/2013 0954 EST Height 185.4 cm (6' 1) 03/16/2013 0954 EST Body Mass Index 34.3 03/16/2013 0954 EST documented in this encounter Functional Status Cognitive Status Response Date of Assessment Because of a physical, mental, or emotional condition, do Ye s 04/08/2009 you have serious difficulty concentrating, remembering, or making decisions? 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 tadalafil (CIALIS) 20 mg Take 1 Tab by mouth 6 Tab 11 03/16/2013 tablet daily. clotrimazole-betamethaso Apply topically PRN. 1 Tube 0 1 05/17/2012 04/13/2014 ne (LOTRISONE) cream tamsulosin (FLOMAX) 0.4 Take 1 Cap by mouth 90 Cap 3 03/02/2014 mg capsule daily. documented in this encounter Progress Notes Nicole Traore, ALUMINUM POLISHER - 03/16/2013 1027 EST Subjective: Patient ID: Avery Padilla is an 62 y.o. male. Avery Padilla is seen in the office today for balanitis and urinary frequency. HPI Comments: He was previously seen in this clinic for really a very impressively swollen, reddened, cracking foreskin that was causing significant pain and dysuria. He was placed on TID Lotrisone cream for this. Today he is much better. He states the pain has almost entirely resolved and the swelling and redness have gone down dramatically. He says that it was like magic! He does have one small crack remaining. 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 He also was seen for frequency and nocturia x3-4. He was placed on Flomax. This he has tolerated very well with no side effect of lightheadedness. His symptoms have almost resolved. He has no nocturia.He voids every few hours without urgency or leakage. He is extremely happy with the medication and would like to stay on it. He also notes ED. He has an internal pump but this does not, of course, give him vascular filling. In the past he has used Viagra in conjunction with the pump which he tolerated well (no headache or lightheadedness) and he would like to return to this again. There is no problem list on file for this patient. Allergies Allergen Reactions ??? Demerol (Meperidine) Nausea And Vomiting Review of Systems Constitutional: Negative for fever, chills and malaise/fatigue. Gastrointestinal: Negative for nausea and vomiting. Genitourinary: Negative for dysuria, urgency, frequency and hematuria. - See HPI Objective: Ht 185.4 cm (73) Wt 117.935 kg (260 lb) BMI 34.31 kg/m2 Physical Exam Constitutional: He is oriented to person, place, and time. He appears well- developed and well-nourished. No distress. Pulmonary/Chest: Effort normal. No respiratory distress. Genitourinary: Foreskin and glans remain slightly reddened and swollen with one small crack int he foreskin, however this is really much improved from prior. Neurological: He is alert and oriented to person, place, and time. Skin: Skin is warm and dry. Psychiatric: He has a normal mood and affect. His behavior is normal. Judgment and thought content normal. Office Visit on 03/16/2013 Component Date Value Range Status ??? Color 03/16/2013 YELLOW Final ??? Clarity, UA 03/16/2013 Clear Final ??? Glucose 03/16/2013 3+* Neg Final ??? Bilirubin 03/16/2013 Neg Neg Final ??? Ketones 03/16/2013 Neg Neg Final ??? Specific [employer] 03/16/2013 1.025 1.001 - 1.035 Final ??? Blood 03/16/2013 Trace* Neg Final ??? pH 03/16/2013 7.0 4.6 - 8.0 Final ??? Protein 03/16/2013 1+* Neg Final ??? Urobilinogen 03/16/2013 0.2 0.2 - 1.0 E.U./dl Final ??? Nitrite 03/16/2013 Neg Neg Final ??? Leuk Esterase 03/16/2013 Neg Neg Final ??? Tech ID 03/16/2013 [id number] Final Test performed at [facility] Urology ??? Bladder Scan 03/16/2013 94ml Final PSA: Lab Results Component Value Date PSA 1.8 02/15/2013 BMP: No results found for this basename: na, k, cl, CO2, bun, creatinine, calcium, calcca, mg, phos, labalbu Assessment / Plan: 1. Dysuria Balanitis: -Renewed script for lotrisone. He has some residual inflammation, but his pain and other symptoms are MUCH improved on the cream. BPH: -Symptomatically resolved on the Flomax. Continue on this medication. Will RTC in one year for recheck of mildly elevated urinary residual. ED: -He would like to try a med in addition to the pump; he has done this in the past with Viagra and was satisfied with it. -We will trial Cialis. He will RTC in one year or sooner PRN. Other Orders Placed This Visit Procedures ??? POCT Urine Dipstick ??? UROLOGY BLADDER SCAN Nicole Traore NP documented in this encounter Plan of Treatment Upcoming Encounters Date Type Specialty Care Team Description 10/27/2021 Telemedicine Nephrology Rebekah Miller MD 1 [facility], Level [address] [place], [place] [address] (Wo rk) documented as of this encounter Procedures Procedure Name Priority Date/Time Associated Diagnosis Comme nts POCT URINE Routine 03/16/2013 9:47 EST Dysuria Results for this DIPSTICK, CLINITEK procedure are in the results section. UROLOGY BLADDER Routine 03/16/2013 Dysuria Results for this SCAN procedure are i n the results section. documented in this encounter Results (ABNORMAL) POCT URINE DIPSTICK (03/16/2013 9:47 EST) Color YELLOW [facility] Clarity, UA Clear [facility] Glucose 3+ (A) Neg [facility] Bilirubin Neg Neg [facility] Ketones Neg Neg [facility] Specific [employer] 1.025 1.001 - 1.035 [facility] Blood Trace (A) Neg [facility] pH 7.0 4.6 - 8.0 [facility] Protein 1+ (A) Neg [facility] Urobilinogen 0.2 0.2 - 1.0 [facility] E.U./dl LAB Nitrite Neg Neg [facility] Leuk Esterase Neg Neg [facility] community development specialist ID [id number]: [facility] Test performed at LAB [facility] Urology Specimen Urine (substance) Performing Organization Address City/State/ZIP Code Phon e Number [facility] [address] [place] [address] SERVICES [facility] [address] [place] [address] UROLOGY BLADDER SCAN (03/16/2013) Pathologist Sig nature Bladder Scan 94ml POINT OF CARE Specimen Urine (substance) Performing Organization Address City/[facility]/ZIP [facility] Phon e Number [facility] POINT OF CARE POINT OF CARE documented in this encounter Visit Diagnoses Diagnosis Dysuria - Primary documented in this encounter Discontinued Medications Medication Sig Discontinue Reason Start Date End Date tadalafil (CIALIS) 20 mg Take 1 Tab by mouth Reorder 3 03/16/2013 tablet daily. documented as of this encounter Care Teams Agency Legal Counsel Relationship Specialty Start Date End Date None, Provider PCP - General 02/15/13 03/20/14 documented as of this encounter
--- OUTSIDE RECORDS SUMMARY | 2021-10-14 08:49 | XMS_ITS | Encounter Summary ---
:1950 Author Organization [facility] Address [address] [place] [address] Care Team Providers Name Role Phone None, Provider Primary Care Provider Unavailable Reason for Visit Reason Onset Date Comments Follow-up Diagnostic PSG 03/16/2013 Encounter Details Date Type Department Care Team Description 03/16/2013 Orders Only [facility] Nicole Traore (Primary Dx) Urology - Medical R, EDITORIAL CLERK Office Building [address] [place] [address] [address] [phone] [place], [place] [phone] Social History Tobacco Use Types Packs/Day Years [...] [facility], Level [address] [place], [place] [address] (Wo rk) documented as of this encounter Visit Diagnoses Diagnosis Dysuria - Primary documented in this encounter Care Teams Forest Fire Fighters Dispatcher Relationship Specialty Start Date End Date None, Provider PCP - General 02/15/13 03/20/14 documented as of this encounter
--- OUTSIDE RECORDS SUMMARY | 2021-10-14 08:49 | XMS_ITS | Encounter Summary ---
:1950 Author Organization [facility] Address [address] [place] [address] Care Team Providers Name Role Phone None, Provider Primary Care Provider Unavailable Encounter Details Date Type Department Care Team Description 02/15/2013 Hospital Encounter [facility] - Nicole Prakash, [facility] [address] [place] [address] 1 [place], [place] [id number] [place] [address] [phone] Social History Tobacco Use Types Packs/Day Years [...] as of this encounter Discharge Diagnoses Diagnosis 599.72 MICROSCOPIC HEMATURIA[ICD-9-CM] documented in this encounter Medications at Time [...] [facility], Level [address] [place], [place] [address] (Wo rk) documented as of this encounter Visit Diagnoses Not on filedocumented in this encounter Care Teams Bucket Operator Relationship Specialty Start Date End Date None, Provider PCP - General 02/15/13 03/20/14 documented as of this encounter
--- OUTSIDE RECORDS SUMMARY | 2021-10-14 08:49 | XMS_ITS | Encounter Summary ---
:1950 Author Organization [facility] Address [address] [place] [address] Care Team Providers Name Role Phone None, Provider Primary Care Provider Unavailable Encounter Details Date Type Department Care Team Description 03/08/2013 Abstract [facility] Urology - Nicole Byers NP Medical Office Build [address] [place] [address] [place], [place] [id number] [phone] Social History Tobacco Use Types Packs/Day Years [...] 10/27/2021 Telemedicine Nephrology Rebekah Miller MD 1 [facility], Level [address] [place], [place] [address] (Wo rk) documented as of this encounter Visit Diagnoses Not on filedocumented in this encounter Historical Medications This list may reflect changes made after this encounter. Medication Sig Dispensed Refills Start Date End Date ERGOCALCIFEROL, VITAMIN Take by mouth. 0 10/19/2017 D2, (VITAMIN D ORAL) Reported on 07/06/2016 added in this encounter Care Teams Tablet Repair Relationship Specialty Start Date End Date None, Provider PCP - General 02/15/13 03/20/14 documented as of this encounter
--- OUTSIDE RECORDS SUMMARY | 2021-10-14 08:49 | XMS_ITS | Encounter Summary ---
:1950 Author Organization [facility] Address [address] [place] [address] Care Team Providers Name Role Phone Olamide Stoner MOLDING UTILITY WORKER Primary Care Provider Encounter Details Date Type Department Care Team Description 04/08/2009 - Hospital Encounter [facility] Nacho Barrow 04/09/2009 General Surgery Unit MD Anoop 111 [facility] [address] [place], [place] [id number] [place] [address] [facility], [address] 5 [place] [address] (Wo rk) Social History Tobacco Use Types Packs/Day Years Used Date Never Assessed Sex Assigned at Date Recorded Not on file documented as of this encounter Last Filed Vital Signs Vital Sign Reading Time Taken Comments Blood Pressure 112/65 04/09/2009 0519 EST Pulse 72 04/09/2009 0519 EST Temperature 36.3 ??C (97.3 ??F) 04/09/2009 0519 EST Respiratory Rate 16 04/09/2009 0519 EST Oxygen Saturation 98% 04/09/2009 0519 EST Inhaled Oxygen Concentration - - Weight 117.9 kg (260 lb) 04/01/2009 1326 EST Height 185.4 cm (6' 1) 04/01/2009 1326 EST Body Mass Index 34.3 04/01/2009 1326 EST documented in this encounter Functional Status Cognitive Status Response Date of Assessment Because of a physical, mental, or emotional condition, do Ye s 04/08/2009 you have serious difficulty concentrating, remembering, or making decisions? (5 years old or older) documented as of this encounter Discharge Summaries Nacho Barrow MD - 04/09/2009 0000 EST DISCHARGE SUMMARY ADMISSION DATE: 04/08/2009 DISCHARGE DATE: REASON FOR DISCHARGE: Erectile dysfunction. PROCEDURE: Remove and replace multicomponent penile implant. SUMMARY: The patient is a 58-year-old male who in 2002 underwent placement of an Ultrex multicomponent penile implant. He had spontaneous failure. Examination demonstrated that he had a likely leak. On 04/08/09, the patient was admitted through the outpatient department. He underwent removal of hisprevious implant and replacement with an Ultrex InhibiZone implant. We kept him overnight for observation, antibiotic therapy with Garcia catheterization. The following morning, the catheter was removed. The patient subsequently was discharged on Keflex 500 mg p.o. q.i.d. for 7 days and p.r.n. Percocet. Nacho Barrow MD, FACS Attending Clinician 09 07 AM by Nacho Barrow MD, FACS / jlb Confirmation: [id number] Dictation ID: [id number] documented in this encounter Discharge Instructions InstructionsThiPallavi gunter - 04/09/2009 Follow up appointment with Nacho Barrow MD in _8_ days / weeks. Bathing - Sponge bath Sponge bath x 7 days, then may shower No bathtub, pool, etc. X 2 weeks No heavy lifting or strenuous activity. May use ice as necessary Keep penis taped to the abdomen for 6 weeks Dressing care - Keep dressing dry and clean. Final Nursing Assessment: Vital Signs: BP 112/65 Pulse 72 Temp(Src) 36.3 ??C (97.3 ??F) (Tympanic) Resp 16 Ht 1.854 m (6' 1) Wt 117.935 kg (260 lb) SpO2 98% Ambulating independently in hallways. Lungs clear, room air, no distress noted. Bowel sounds active in all four quadrants. Last BM 04/08/09-SPA EXPERIENCE COORDINATOR. Abdomen soft and non-tender to palpation. Patient spontaneously voiding small amounts of clear, yellow urine at a time. Scrotum swollen. Ice applied as needed. Scrotal dressing is clean, dry, and intact. Pain well controlled with 1 tab Percocet as needed. IV site removed prior to discharge. documented in this encounter Medications at Time of Discharge Medication Sig Dispensed Refills Start Date End Date amlodipine (NORVASC) 5 Take 10 mg by mouth 0 mg tablet daily. Reported on 07/06/2016 aspirin chewable 81 mg Take 1 Tab by mouth 1 Tab 0 03/29 tablet daily. Takes in am cephALEXin (KEFLEX) 500 Take 1 Cap by mouth 4 28 Cap 0 0 04/09/2009 04/16/2009 mg capsule times daily for 7 days. cephALEXin (KEFLEX) 500 Take 1 Cap by mouth 3 21 Cap 0 0 04/08/2009 04/15/2009 mg capsule times daily for 7 days. lisinopril (PRINIVIL, [...] on 07/06/2016 documented as of this encounter Ordered Prescriptions Prescription Sig Dispensed Refills Start Date End Date aspirin chewable 81 mg Take 1 Tab by mouth 1 Tab 0 03/29 tablet daily. Takes in am oxycodone-acetaminophen Take 1-2 Tabs by 50 Tab 0 200910/19/2017 (PERCOCET) 5-325 mg per mouth every 4 hours tablet as needed for Pain. cephALEXin (KEFLEX) 500 mg Take 1 Cap by mouth 28 Cap 0 04/09/2009 04/16/2009 capsule 4 times daily for 7 days. cephALEXin (KEFLEX) 500 mg Take 1 Cap by mouth 21 Cap 0 04/08/2009 04/15/2009 capsule 3 times daily for 7 days. oxycodone-acetaminophen Take 2 Tabs by 35 Tab 0 04/08/19 10 10/19/2017 (PERCOCET) 5-325 mg per mouth every 4 hours tablet as needed for Pain. documented in this encounter Discharge Disposition Disposition Code Departure Means Destination Home or Self Care documented in this encounter Progress Notes Cielo Sanchez - 04/09/2009 1346 EST This patient has been assessed using the [facility] Case Management risk screen. No needs were identified at this time. Please page the bilingual case manager regarding utilization review issues or if discharge planning problems or barriers arise. Pt. Discharged to home with no needs. Fish Farm Manager: Jesus NAM/[facility] Beeper: [phone]. Pallavi Gallegos - 04/09/2009 1206 EST D/C instructions reviewed with patient. Patient denies having any questions at this time. Prescriptions provided. Drea Acuña RN - 04/09/2009 1122 EST Final Nursing Assessment: Vital Signs: BP 112/65 Pulse 72 Temp(Src) 36.3 ??C (97.3 ??F) (Tympanic) Resp 16 Ht 1.854 m (6' 1) Wt 117.935 kg (260 lb) SpO2 98% Patient's lung sounds clear to ausculation. Heart rate and rhythm regular. Bowel sounds active in all four quadrants. Last BM 04/08/09-SPA EXPERIENCE COORDINATOR. Abdomen soft and non- tender to palpation. Patient voiding small amounts of clear, yellow urine. Pain controlled with Percocet as needed. Scrotum swollen with clean, dry dressing that is intact. Patient ambulates well with no assistive device. Vital signs are stable at time of discharge. Nacho Ferrell MD - 04/09/2009 0858 EST Admit Date: 04/08/2009 POD #1 Subjective: Patient has no complaint of Pain. Doing well!. . Objective: Patient Vitals in the past 8 hrs: BP Temp Temp src Pulse Resp SpO2 Height Wt - Scale 04/09/09 0519 101/62 mmHg 37.1 ??C (98.8 ??F) Tympanic 71 16 95 % - - 04/09/09 0153 111/59 mmHg 37.5 ??C (99.5 ??F) Tympanic 77 18 94 % - - 04/09/09 0151 - - - - - 90 % - - Intake/Output Summary (Last 24 hours) at 04/09/09 0844 Last data filed at 04/09/09 0521 Gross per 24 hour Intake 2847 ml Output 1200 ml Net 1647 ml MInor swelling, incision intact Assessment: P S/p Penile implant. Plan: D/ C Garcia Home if voiding well Claire Espino RN - 04/09/2009 0608 EST Patient stood at edge of bed and reported light headedness and nausea. Patient back in bed and zofran given. Will try to ambulate later. Claire Ellis RN documented in this encounter H&P Notes InpatientPhysician MD - 04/12/2009 1327 EST documented in this encounter Procedure Notes Physician Phillips MD - 04/13/2009 1322 ESTAssociated Order(s): IMPLANT RECORD (PACEMAKER ONLY) - SCANNED; IMPLANT RECORD (PACEMAKER ONLY) - SCANNED InpatientPhysician MD - 04/12/2009 1327 ESTAssociated Order(s): ECG REPORT - SCANNED; ECG REPORT - SCANNED Physician Phillips MD - 04/12/2009 1327 ESTAssociated Order(s): ORDERS - SCANNED; ORDERS - SCANNED documented in this encounter OR Notes OR PreOp - Physician Phillips MD - 04/12/2009 1327 EST R PreOp - Physician Phillips MD - 04/12/2009 1327 EST Anesthesia Procedure Notes - Physician Phillips MD - 04/08/2009 1545 EST R PreOp - Physician Phillips MD - 04/08/2009 1537 EST Anesthesia Preprocedure Evaluation - Physician Phillips MD - 04/08/2009 1500 EST Anesthesia Preprocedure Evaluation - Physician Phillips MD - 04/08/2009 1343 EST R Surgeon - Nacho Barrow MD - 04/08/2009 1233 EST Consulting Systems Engineer : Danial Fuel Testing Technician :Lauryn Preoperative Diagnosis : ED Postoperative Diagnosis :Same Procedure : Placement of multicomponent IPP Anesthesia :LMA Findings : 19 cm corpora Fluids : IVF - See anesthesia U/O - EBL - 100 Retained Material / Drains : 16 fr garcia 18 cm with 1 cm rear tip inhibizone ultrex Specimen : Complications : none Condition :Stable Dispo: PACU R Surgeon - Nacho Barrow MD - 04/08/2009 0000 EST OPERATIVE REPORT SERVICE DATE: 04/08/2009 SURGEON: Nacho Barrow MD DEMAND EQUIPMENT REPAIRER: Josh YATES PREOPERATIVE DIAGNOSIS: Failed penile implant. POSTOPERATIVE DIAGNOSIS: Failed penile implant. PROCEDURE: Remove and replaced multicomponent penile implant. ANESTHESIA: LMA. INDICATIONS: The patient is a 58-year-old male who in 2002 had a multicomponent penile prosthesis placed. We placed an Ultrex 21 cm with 100 cm reservoir. The patient had a spontaneous failure and we elected to proceed with a replacement. NARRATIVE: The patient was taken to the operating room and underwent a preoperative site and ID and debriefing was performed. He underwent LMA anesthesia. He had received 1 g IV cefazolin. Venodynes were utilized. Next he underwent a 10-minute Betadine prepping and sterile draping. The patient subsequently underwent a median raphe incision at the penoscrotal junction measuring 3 cm in size. The patient had dissection carried out through the subcutaneous tissues with following thetubes to the cavernosum, which were then identified and opened with cautery and sharp technique. We were able to also remove the previous placed reservoir. Once the cavernotomies were recreated we removed the cylinders. We then performed a vigorous dissection towards the right inguinal canal since this had been deflated. This was somewhat difficult of amputation, nevertheless, we were able to very effectively and safely were able to remove old the implant 100 mL reservoir and filled this with minimal pressure. All components were in hibiZone. We then subsequently measured. The patient now measured 24 cm. Proximally he had measured 14 and distally 10 cm. We felt that since we were using Ultrex prosthesis, we would use a 21 cm implant with a 2 cm rear tip home management supervisor. It was felt that the patient having a 3 cm would be what we would feel comfortable with. We subsequently placed these cylinders with a Darrin. He had excellent erection with the insufflation and then we closed each of the cavernotomies with a running 3-0 PDS suture. We then placed the pumpin the right hemiscrotum and we then did a quick connect from the pump to the reservoir. A straight connector was utilized. We retested the system. It functioned normally. An excellent erection was noted. We then removed the glans suture and left Garcia catheter had been previously placed and in. The patient subsequently had the layers closed using running 3-0 Vicryl suture in 2 layers and the skin with a running 3-0 PDS. Copious amounts of bacitracin and gentamicin were utilized in this case. There were no complications. Unless otherwise noted, there were no complications, no blood loss, no cultures obtained, no specimens removed, and no drains retained. Nacho Barrow MD, FACS Dictated by: Nacho Barrow MD, FACS 03 26 PM / css Confirmation: [id number] Dictation ID: [id number] documented in this encounter Miscellaneous Notes Scanned Note-Null - Inpatient, MD Jai - 04/12/2009 1327 EST canned Note-Null - Inpatient, MD Jai - 04/12/2009 1327 EST documented in this encounter Plan of Treatment Upcoming Encounters Date Type Specialty Care Team Description 10/27/2021 Telemedicine Nephrology Rebekah Miller MD 1 [facility], [address] [place], [place] [address] (Wo rk) documented as of this encounter Procedures Procedure Name Priority Date/Time Associated Comments Diagnosis IMPLANT RECORD - 04/13/2009 13:22 Results for this SCANNED EST procedure are i n the results section. ECG REPORT - SCANNED 04/12/2009 13:27 Res ults for this EST procedure are i n the results section. ORDERS - SCANNED 04/12/2009 13:27 Results for this EST procedure are i n the results section. GLUCOSE, GLUCOMETER Routine 04/08/2009 15:54 Resu lts for this EST procedure are i n the results section. GLUCOSE, GLUCOMETER Routine 04/08/2009 10:23 Resu lts for this EST procedure are i n the results section. documented in this encounter Results IMPLANT RECORD (PACEMAKER ONLY) - SCANNED (04/13/2009 13:22 EST) Specimen Narrative 04/13/2009 13:23 EST This result has an attachment that is no t available. Ordered by an unspecified provider. Transcriptions InpatientPhysician MD - 04/13/2009 13 :22 EST ECG REPORT - SCANNED (04/12/2009 13:27 EST) Specimen Narrative 04/13/2009 13:23 EST This result has an attachment that is no t available. Ordered by an unspecified provider. Transcriptions Inpatient, MD Jai - 04/12/2009 13 :27 EST ORDERS - SCANNED (04/12/2009 13:27 EST) Specimen Narrative 04/13/2009 13:23 EST This result has an attachment that is no t available. Ordered by an unspecified provider. Transcriptions Inpatient, MD Jai - 04/12/2009 13 :27 EST (ABNORMAL) GLUCOSE, GLUCOMETER (04/08/2009 15:54 EST) Glucose, 115 (H) 70 - 100 STEPHEN ROSSANA Fingerstick mg/dl LAB Consulting Systems Engineer ID [id number] STEPHEN ROSSANA Test Performed by Nursing Services LAB Specimen Performing Organization Address [facility] e Number [facility] [address] [place] [address] SERVICES [facility] [address] [place] [address] (ABNORMAL) GLUCOSE, GLUCOMETER (04/08/2009 10:23 EST) Glucose, 140 (H) 70 - 100 STEPHEN ROSSANA Fingerstick mg/dl LAB Consulting Systems Engineer ID [id number] STEPHEN ROSSANA Test Performed by Nursing Services LAB Specimen Performing Organization Address City/[facility] e Number [facility] [address] [place] [address] SERVICES [facility] [address] [place] [address] documented in this encounter Visit Diagnoses Not on filedocumented in this encounter Administered Medications Inactive Administered Medications - up to 3 most recent administrations Medication Order MAR Action Action Date Dose Rate Site CEFAZolin (ANCEF) syringe 1 g Given by Other 04/08/2009 15:32 EST 1 g 1 g, intravenous, Administer over 10 Minutes, PRE-OP ONCE, 1 dose, On Wed04/08/09 at 0600, Routine, Pre Op Day of Surgery CEFAZolin (ANCEF) syringe 1 g Given by Other 04/08/2009 15:32 EST 1 g 1 g, intravenous, Administer over 10 Minutes, PRE-OP ONCE, 1 dose, On Wed04/08/09 at 1500, Routine cephALEXin (KEFLEX) capsule 500 mg Given 04/09/2009 9:30 EST 500 mg 500 mg, oral, 4 TIMES DAILY, 28 doses, First dose on Wed04/09/09 at 0845, Last dose on Wed04/16/09 at 0800, Routine dextrose 5 % and 0.45 % NaCl with Rate Documented 04/09/2009 9:[address] 100 mL/hr KCl 20 mEq/L infusion at 100 mL/hr, intravenous, CONTINUOUS, Starting on Wed04/08/09 at 1615, Until Wed04/09/09 at 1444, Routine, On Unit New Bag 04/09/2009 3:42 EST 100 mL/hr New Bag 04/08/2009 18:30 EST 100 mL/hr lactated ringers (LR) infusion New Bag 04/08/2009 10:35 EST 25 mL/hr at 25 mL/hr, intravenous, CONTINUOUS, Starting on Wed04/08/09 at 1015, Until Wed04/08/09 at 1341, Routine, Pre Op Day of Surgery lactated ringers (LR) infusion New Bag 04/08/2009 15:40 EST 75 mL/hr at 75 mL/hr, intravenous, CONTINUOUS, Starting on Wed04/08/09 at 1400, Until Wed04/08/09 at 1858, Routine, Recovery (only) ondansetron (PF) (ZOFRAN) 4 mg/2 mL injection 2-4 Given 04/09/2009 5:51 EST 4 mg mg 2-4 mg, intravenous, EVERY 6 HOURS PRN, Starting on Wed04/08/09 at 1902, Until Wed04/09/09 at 1444, Nausea, Routine, On Unit oxycodone-acetaminophen (PERCOCET) 5-325 mg Given 04/09/2009 8:1 0 EST 1 Tablet per tablet 1-2 Tab 1-2 Tablet, oral, EVERY 4 HOURS PRN, Starting on Wed04/08/09 at 1902, Until Wed04/09/09 at 1444, Pain, Routine, On Unit Given 04/09/2009 1:37 EST 1 Tablet Given 04/08/2009 21:34 EST 1 Tablet documented in this encounter Discontinued Medications Medication Sig Discontinue Reason Start Date End Date aspirin chewable 81 mg Take 81 mg by mouth 04/08/2009 tablet daily. Takes in am documented as of this encounter Historical Medications This list may reflect changes made after this encounter. Medication Sig Dispensed Refills Start Date End Date amlodipine (NORVASC) 5 Take 10 mg by mouth 0 mg tablet daily. Reported on 07/06/2016 lisinopril (PRINIVIL, Take 20 mg by mouth 0 12/08/2019 ZESTRIL) 20 mg tablet daily. Takes in am simvastatin (ZOCOR) 40 Take 40 mg by mouth 0 10/19/2017 mg tablet daily. Reported on 07/06/2016 aspirin chewable 81 mg Take 81 mg by mouth 0 04/08/2009 tablet daily. Takes in am added in this encounter Active and Recently Administered Medications Times are shown in EST. Scheduled Medication Order 04/07/2009 04/08/2009 04/09/2009 CEFAZolin (ANCEF) syringe 1 g (COMPLETED) 0600 (Due)1532 (Given by Other - Provider: Nancy Radford RN - Comment: Given per anesthesia provider. Syringe attached to i.v. in POH.) 1 g, Intravenous, for 10 Minutes, PRE-OP ONCE, 1 dose, Wed at 0600 CEFAZolin (ANCEF) syringe 1 g (COMPLETED) 1532 (Given by Other - Provider: Nancy Radford RN - Comment: Given per anesthesia provider.) 1 g, Intravenous, for 10 Minutes, PRE-OP ONCE, 1 dose, Wed at 1500 cephALEXin (KEFLEX) capsule 500 mg 0930 (Given - Provider: Drea Ferrari RN) 500 mg, Oral, 4 TIMES DAILY, 28 doses, F irst dose on Wed04/09/09 at 0845, Last dose on Wed04/16/09 at 0800 Continuous Medication Order 04/07/2009 04/08/2009 04/09/2009 dextrose 5 % and 0.45 % NaCl with KCl 20 mEq/L infusion (CAN CELED) 1615 (Completed - Provider: Madison Valero)1830 (New Bag - Provider: Kelly Saab RN) 0342 (New Bag - Provider: Claire adame, VIV)0906 (Rate Documented - Provider: Pallavi Andrews)0945 (Completed - Provider: Pallavi Andrews) at 100 mL/hr, Intravenous, CONTINUOUS, S tarting Wed04/08/09 at 1615, Until Discontinued lactated ringers (LR) infusion (CANCELED) 1035 (New Bag - Provider: Martha Sandoval, VIV) at 25 mL/hr, Intravenous, CONTINUOUS, St arting 04/08/09 at 1015, Until Discontinued lactated ringers (LR) infusion (CANCELED) 1540 (New Bag - Provider: Dannielle Montes, VIV)1830 (Completed - Provider: Kelly Saab RN) at 75 mL/hr, Intravenous, CONTINUOUS, St arting 04/08/09 at 1400, Until Discontinued PRN Medication Order 04/07/2009 04/08/2009 04/09/2009 ondansetron (PF) (ZOFRAN) 4 mg/2 mL injection 2-4 mg (CANCELED) 0551 (Given - Provider: Claire Ellis RN) 2-4 mg, Intravenous, EVERY 6 HOURS PRN, Starting 04/08/09 at 1902, Until Discontinued oxycodone-acetaminophen (PERCOCET) 5-325 mg per tablet 1-2 T ab 1952 (Given - Provider: Claire Ellis RN)2134 (Given - Provider: Claire Ellis RN) 0137 (Given - Provider: Claire white, VIV)0810 (Given - Provider: Pallavi Andrews) 1-2 Tab, Oral, EVERY 4 HOURS PRN, Starti ng Wed04/08/09 at 1902, Until Discontinued documented in this encounter Orders Medications Ordered That Might Not Have Count Last Ord ered Date First Ordered Date Been Administered atropine 0.1 mg/mL 10 mL syringe 0.5 mg 1 04/08/19 10 dextrose 5 % in lactated ringers infusion 1 2009 diazepam (VALIUM) tablet 5-10 mg 1 04/08/2009 fentanyl citrate (PF) 50 mcg/mL injection 1 2009 25-100 mcg HYDROmorphone (PF) (DILAUDID) 1 mg/mL 1 04/08/2009 injection 0.2-0.4 mg morphine injection 1-4 mg 1 04/08/2009 naloxone (NARCAN) injection 0.2 mg 1 04/08/2009 ondansetron (PF) (ZOFRAN) 4 mg/2 mL 1 04/08/2009 injection 2 mg oxycodone-acetaminophen (PERCOCET) 5-325 1 010 mg per tablet 1 Tab promethazine (PHENERGAN) injection 6.25 mg 1 04/08 zolpidem (AMBIEN) tablet 5-10 mg 1 04/08/2009 Diet Count Last Ordered Date First Ordered Date DIET REGULAR 1 04/08/2009 Nursing Count Last Ordered Date First Ordered Date CATHETER CARE 1 04/08/2009 INSERT GARCIA CATHETER 1 04/08/2009 INSERT PERIPHERAL IV 1 04/08/[address] SEQUENTIAL COMPRESSION DEVICE 1 04/08/2009 UP AD WILIAN 1 04/08/2009 Admission Count Last Ordered Date First Ordered Date NOTIFY PPS OF DISCHARGE COMPLETE 04/09/2009 ADMIT TO OBSERVATION 1 04/08/2009 PPS NOTIFICATION OF PATIENT ARRIVAL ON 0 UNIT Discharge Count Last Ordered Date First Ordered Date DISCHARGE PATIENT 2 04/09/2009 04/08/2009 documented in this encounter Care Teams Guest Relations Associate Relationship Specialty Start Date End Date Olamide Stoner FNP PCP - General 04/04/09 02/14/[address] [place] [phone] documented as of this encounter
--- OUTSIDE RECORDS SUMMARY | 2021-10-14 08:49 | XMS_ITS | Encounter Summary ---
:1950 Author Organization [facility] Address [address] [place] [address] Care Team Providers Name Role Phone Rakesh Rivers MD Primary Care Provider Encounter Details Date Type Department Care Team Description 03/27/2009 Hospital Encounter [facility] MD Anoop [id number] [place] [address] [facility], [address] [place] [phone] (Wo rk) Social History Tobacco Use Types Packs/Day Years Used Date Never Assessed Sex Assigned at Date Recorded Not on file documented as of this encounter Medications at Time of Discharge Medication Sig Dispensed Refills Start Date End Date amlodipine (NORVASC) 5 Take 10 mg by mouth 0 mg tablet daily. Reported on 07/06/2016 aspirin chewable 81 mg Take 1 Tab by mouth 1 Tab 0 03/29 tablet daily. Takes in am aspirin chewable 81 mg Take 81 mg by mouth 0 04/08/2009 tablet daily. Takes in am cephALEXin (KEFLEX) [...] Disposition Code Departure Means Destination Auto Discharge Home documented in this encounter Procedure Notes Inpatient, MD Jai - 04/05/2009 0736 ESTAssociated Order(s): ECG REPORT - SCANNED; ECG REPORT - SCANNED documented in this encounter Plan of Treatment Upcoming Encounters Date Type Specialty Care Team Description 10/27/2021 Telemedicine Nephrology Rebekah Miller MD 1 [facility], [address] [place] [phone] (Wo rk) documented as of this encounter Procedures Procedure Name Priority Date/Time Associated Diagnosis Comme nts ECG REPORT - 04/05/2009 7:36 EST Results for this SCANNED procedure are i n the results section. documented in this encounter Results ECG REPORT - SCANNED (04/05/2009 7:36 EST) Specimen Narrative This result has an attachment that is no t available. Procedure Note Physician Phillips MD - 04/05/2009 7: 36 EST documented in this encounter Visit Diagnoses Not on filedocumented in this encounter Care Teams Dielectric Testing Machine Operator Relationship Specialty Start Date End Date Rakesh Rivers MD PCP - General 03/04/09 04/03/[address] [address] documented as of this encounter
[2021-10-14 15:31] LABS: Prothrombin Time 10.4 sec (9.3-11.0)
[2021-10-14 16:01] LABS: Bilirubin Negative (Negative); Blood Small (Negative); Clarity Clear (Clear); Glucose 100 mg/dL (Negative); Ketones Negative (Negative); Leukocyte Esterase Negative (Negative); Nitrite Negative (Negative); Specific Gravity 1.025 (1.005-1.025); Urobilinogen 0.2 EU/dL (Up TO 0.2); pH 5.5 (5-8)
[2021-10-14 16:06] LABS: ALT 46 U/L (16-63); AST 24 U/L (15-37); Albumin 3.8 g/dL (3.4-5.0); Alkaline Phosphatase 67 U/L (46-116); Anion Gap 15.3 mmol/L (3-11); BUN 56 mg/dL (7-18); Bilirubin, Total 0.4 mg/dL (0.2-1.0); CO2 21.7 mmol/L (21.0-32.0); Calcium 8.5 mg/dL (8.5-10.1); Chloride 105 mmol/L (98-107); Glucose 194 mg/dL (74-106); Potassium 4.7 mmol/L (3.5-5.1); Sodium 142 mmol/L (136-145); Total Protein 7.4 g/dL (6.4-8.2)
[2021-10-14 16:08] LABS: COMMENT (LAB VIEW ONLY) 148.28 mg/dL; PROTEIN 207.7 mg/dL
[2021-10-14 16:11] LABS: CREATININE 4.6 mg/dL (0.70-1.30)
[2021-10-14 16:17] LABS: Bacteria Negative HPF (Negative); Crystals Negative HPF (Negative); Epithelial Cells Negative HPF (Negative); WBC 0-2 HPF (0-5)
[2021-10-14 16:18] LABS: C & S Indicated? No; Casts 0-2 Coarse Granular LPF (Negative); Mucus Negative (Negative)
[2021-10-14 16:22] LABS: Bilirubin, Direct 0.1 mg/dL (0.0-0.2); PHOSPHORUS 3.7 mg/dL (2.6-4.7)
[2021-10-14 23:17] LABS: Parathyroid Hormone,Intact 387 pg/mL (19-88)
[2021-10-15 10:19] LABS: C3 Complement 146 mg/dL (81-157); C4 Complement 47 mg/dL (13-39)
[2021-10-15 12:13] LABS: Hepatitis A Antibody IgM Negative (Negative); Hepatitis B Core Antibody Negative (Negative); Hepatitis B surface Ag Negative (Negative); Hepatitis C Ab w Rflx HCV PCR Negative (Negative)
[2021-10-15 14:52] LABS: Albumin, Urine % 58.7 %; Albumin, Urine mg/dL 157 mg/dL; Globulins, Urine % 41.3 %; Globulins, Urine mg/dL 111 mg/dL; Immunotyping, Urine (See Note); Total Protein Urine 268 mg/dL (See Note)
[2021-10-15 15:08] LABS: Albumin 55.1 % (55.8-66.1); Albumin g/dL 3.9 g/dL (3.6-5.2); Comment (See Note); Total Protein 7.1 g/dL (6.3-8.2)
[2021-10-15 15:32] LABS: ANA Interpretation Positive (Negative); ANA Titer Pattern 1:160 Homogeneous; ANCA Interpretation Negative (Negative)
[2021-10-15 16:14] LABS: Immunotyping, Serum (See Note)
== END 2021-10-14 08:38 | disposition home or self-care (01) ==
LOC: LBN 08:37
PROVIDERS: PCP Family Medicine; Visit Provider Internal Medicine Nephrology
DX: N17.9 Acute kidney failure, unspecified (principal)
CPT/HCPCS: 80048; 80076; 84156; 84166; 86255; 86335; 86704; 86709; 86803; 87340; 81003; 81015; 82565; 83970; 84100; 84165; 85610; 86038; 86160; 86320

== ENCOUNTER 2022-02-26 15:47 | Outpatient (REF) | payer MEDICARE, BC, SELFPAY ==
[2022-02-26 14:16] LABS: Abs Immature Grans 0.21 10^3/uL (0.0-0.06); Absolute Basophil Count 0.03 10^3/uL (0.0-0.2); Absolute Eosinophil Count 0.07 10^3/uL (0.0-0.7); Absolute Lymphocyte Count 1.34 10^3/uL (1.2-3.4); Absolute Monocyte Count 0.69 10^3/uL (0.1-0.8); Basophils % 0.4; HGB 10.1 g/dL (13.5-17.5); Immature Grans % 2.9; Lymphocytes % 18.5; MCHC 31.6 % (32.0-36.0); MCV 89 fL (80-95); MPV 12.3 fL (8.0-11.0); Monocytes % 9.5; Neutrophils % 67.7; Platelet Count 148 10^3/uL (130-400); RBC 3.61 10^6/uL (4.36-5.78); RDW 14.8 % (11.8-14.1); RDW-SD 48.2 fL; WBC 7.24 10^3/uL (4.4-10.8)
[2022-02-26 14:35] LABS: Anion Gap 11.4 mmol/L (3-11); BUN 64 mg/dL (7-18); CO2 23.6 mmol/L (21.0-32.0); Calcium 8.9 mg/dL (8.5-10.1); Chloride 106 mmol/L (98-107); Estimated GFR 14.47 (mL/min/1.73m2); Glucose 189 mg/dL (74-106); NT-proBNP 11266 pg/mL (<300); Potassium 4.3 mmol/L (3.5-5.1); Sodium 141 mmol/L (136-145)
[2022-02-26 14:44] LABS: CREATININE 4.2 mg/dL (0.70-1.30)
== END 2022-02-26 15:48 | disposition home or self-care (01) ==
LOC: NCHCN 15:47
PROVIDERS: PCP Family Medicine; Visit Provider Internal Medicine
DX: I50.9 Heart failure, unspecified (principal); I48.91 Unspecified atrial fibrillation; E11.9 Type 2 diabetes mellitus without complications; N18.9 Chronic kidney disease, unspecified
CPT/HCPCS: 80048; 83880; 85025

== ENCOUNTER → 2023-05-13 11:05 | Outpatient (BNVA) | payer MEDICARE, BC, SELFPAY | PROVIDERS: PCP Family Medicine; Referring Provider Family Medicine; Visit Provider Physical Therapy Assistant | DX: Z12.11 Encounter for screening for malignant neoplasm of colon (principal) ==

== ENCOUNTER 2023-05-27 06:41 | Day surgery (SDC) | payer MEDICARE, BC, SELFPAY ==
--- NOTE | 2023-05-26 20:55 | W.PM.DSUDISC ---
Date of service: 05/27/23 Time of Service: 09:27 Discharge Plan Disposition Patient Disposition: Home Condition: Good Discharge Details Reason For Visit: screening colonoscopy Attending Provider: Brenden Back Primary Care Provider: Priscilla Robert Home Meds and New Rx's Prescriptions: Continued Ozempic 0.25 mg or 0.5 mg (2 mg/3 mL) pen injector 0.25 mg subcut QWEEK Rx Instructions: for 4 weeks tamsulosin 0.4 mg capsule 0.4 mg PO DAILY sildenafil 100 mg tablet 100 mg PO DAILY PRN Rx Instructions: administer 30 minutes to 4 hours before activity torsemide 20 mg tablet 20 mg PO DAILY metoprolol succinate 50 mg tablet extended release 24 hr 150 mg PO DAILY Jardiance 25 mg tablet 25 mg PO DAILY glipizide 10 mg tablet 10 mg PO DAILY atorvastatin 10 mg tablet 10 mg PO DAILY potassium chloride 20 mEq tablet extended release 20 meq PO DAILY insulin glargine [Lantus Solostar U-100 Insulin] 100 unit/mL (3 mL) insulin pen 15 unit subcut QAM Rx Instructions: inject 10-20 units sc every morning as directed Held Eliquis 5 mg tablet 5 mg PO BID Hold Instructions: Resume on 05/28/23. Discontinued bisacodyl [Dulcolax (bisacodyl)] 5 mg tablet,delayed release (DR/EC) 5 mg PO ONCE Qty: 4 0RF Rx Instructions: Take per colonoscopy instructions provided by ordering providers office peg 3350-electrolytes [Golytely] 236-22.74-6.74 -5.86 gram recon soln 240 ml PO Q10M Qty: 4000 0RF Rx Instructions: until fecal effluent is clear Discharge Instructions Instructions: Colorectal Polyps (GEN) Additional Instructions: Avery, we were able to complete your colonoscopy today without much difficulty. I found a total of 6 polyps, which I removed completely. I will have them all sent off for pathology testing to determine the nature of the polyps, and once we have that information, my office will be in touch regarding the timing of your next colonoscopy.. I would like you to hold your Eliquis until tomorrow. If you have any questions in the meantime, please do not hesitate to call at any point. 1. If tolerated, consume a soft, low fiber diet for 1-2 days. 2[address] Do not drive, drink alcohol, operate machinery, make critical decisions, or do activities that require coordination or balance for 24 hours. 3. Because air was put into your colon during the procedure, expelling air from your rectum (passing gas or farting) is normal. 4. You may not have a bowel movement for 1-3 days because of the colonoscopy prep. This is normal. 5. Go directly to the emergency room if you notice any of the following: Develop chills (warm to touch), or if you have a thermometer and your temperature is above 101 Difficulty breathing or difficultly swallowing Persistent vomiting Severe abdominal pain, other than gas cramps Severe chest pain Black, tarry stools Any bleeding ? exceeding one tablespoon 6. Call your physician if the site where your intravenous was started becomes red, swollen, painful, and warm to touch. 7. Your physician has reviewed your pre-procedure medications. Please continue to take those medications as previously ordered. You will be given specific information/education regarding any changes to your medications before leaving. Activity:: Activity as Tolerated Diet:: As Tolerated Discharge Orders Discharge Orders: Discharge Order (Routine); Ordered 05/26/23 Ordered By: Brenden Back DS: Diagnosis Discharge Diagnosis (1) Encounter for screening colonoscopy: Status: Acute Asessment and Plan: Follow-up on polypectomy results
--- NOTE | 2023-05-26 20:57 | W.COLOREPORT ---
Date of service: 05/27/23 Time of Service: 09:30 Colonoscopy Report Date of procedure: 05/27/23 Pre-op diagnosis general: screening colonoscopy Post-op diagnosis procedure note: other (Colon polyps) Procedure: Colonoscopy with polypectomy Surgeon: Brenden Back Anesthesia Type: General:No Airway Estimated blood loss (mL): 10 Pathology: other (0.5 cm polyp in the ascending colon, 0.25 cm polyp in the ascending colon, 0.75 cm polyp at 95 cm, 0.25 cm polyp at 75 cm, 0.25 cm polyp at 20 cm x2) Complications: None Disposition: same day Indications: Avery is 72 years old, and needs a screening colonoscopy as part of routine health maintenance. Prep: Hanna Procedure Start Time: 08:41 Procedure End Time: 09:18 Retraction Time: 27 Findings: 0.5 cm polyp in the ascending colon, 0.25 cm polyp in the ascending colon, 0.75 cm polyp at 95 cm, 0.25 cm polyp at 75 cm, 0.25 cm polyp at 20 cm x2 Procedure Description: After the induction of monitored anesthetic care, and with the patient in left lateral decubitus position, I began by performing an external anorectal exam.? Perineum and skin were normal, as was the anal verge.? There was no evidence of external hemorrhoids.? Next, I performed a digital rectal exam.? I did not appreciate any abnormal findings.? Next, I advanced a colonoscope into the rectal vault.? I performed retroflexion.? This appeared normal.? Using insufflation, I then advanced the colonoscope beyond the rectal folds and into the sigmoid colon before advancing towards the cecum.? The scope was noted to be in the cecum by identification of the ileocecal valve and appendiceal orifice.? Within the ascending colon were 2 polyps. 1 was 0.25 cm and flat, the other was 0.5 cm and slightly pedunculated. Both of these were removed with cold forceps. There was minimal bleeding here. I then began withdrawing the colonoscope using repeated irrigation as necessary for full evaluation of the colonic mucosa. There was another slightly more pedunculated polyp at 95 cm from the anal verge. This was removed with snare polypectomy. There was minimal bleeding here. I found another flat polyp at 75 cm from the anus. This was 0.25 cm and was retrieved with cold forceps. Once the scope was withdrawn to the level of the rectum, great care was taken to examine portions of the rectal folds. At 20 cm from the anal verge were 2 more polyps. Both were less than 0.25 cm. Both of these were removed with cold forceps without any issues. Finally, the scope was withdrawn and the patient was brought to the same-day surgery recovery unit as the anesthetic wore off. ?The findings and instructions were shared with the patient prior to discharge. [place] Bowel Prep [place] Bowel Prep Right Colon: 2 Left Colon: 2 Transverse Colon: 3 Total Score: 7
[2023-05-27 07:06] VITALS: BP 161/112; PULSE 80; RESP 20; TEMP 36.5; O2SAT 98
[2023-05-27] MEDS: Lactated Ringers 1,000 ML 80 ML IV (07:44)
--- NOTE | 2023-05-27 07:46 | W.ANESPRE ---
General Info Date of Service Date Performed: 05/27/23 Height: 6 ft Weight: 119.4 kg Body Mass Index (BMI): 35.6 Surgical Procedure: Operation Date: 05/27/23 08:20 Proposed Procedure Side Surgeon amanda Back MD Meds Allergies and Home Medications Allergies Allergy/AdvReac Type Severity Reaction Status Date / Time meperidine [From Demerol] AdvReac Severe vomit Verified 05/27/23 07:04 Home Medication Medication Instructions Recorded apixaban 5 mg tablet (Eliquis) 5 mg PO BID 04/21/23 atorvastatin 10 mg tablet 10 mg PO DAILY 04/21/23 empagliflozin 25 mg tablet 25 mg PO DAILY 04/21/23 (Jardiance) glipizide 10 mg tablet 10 mg PO DAILY 04/21/23 metoprolol succinate 50 mg 150 mg PO DAILY 04/21/23 tablet,extended release 24 hr sildenafil 100 mg tablet 100 mg PO DAILY PRN 04/21/23 tamsulosin 0.4 mg capsule 0.4 mg PO DAILY 04/21/23 torsemide 20 mg tablet 20 mg PO DAILY 04/21/23 potassium chloride 20 mEq 20 meq PO DAILY 05/11/23 tablet,extended release insulin glargine 100 unit/mL (3 15 unit subcut QAM 05/13/23 mL) subcutaneous pen (Lantus Solostar U-100 Insulin) semaglutide 0.25 mg or 0.5 mg (2 0.25 mg subcut QWEEK 05/13/23 mg/3 mL) subcutaneous pen injector (Ozempic) Current Visit Medications: Current Medications Generic Name Dose Route Start Last Admin Trade Name Freq PRN Reason Stop Dose Admin Ringer's Solution 1,000 mls @ 80 mls/hr 05/27/23 06:00 05/27/23 07:44 IV 06/25/23 23:59 80 mls/hr INFUSION MIKE Administration IV Miscellaneous Supplies 1 each 05/27/23 06:00 Iv Access IV 06/25/23 23:59 DIRECTED MIKE Ondansetron HCl 4 mg 05/26/23 20:58 Ondansetron 4 Mg/2 Ml Vial IVP 06/25/23 20:57 Q4H PRN PRN Nausea / Vomiting Sodium Chloride 0 ml 05/27/23 06:00 Normal Saline Flush 10 Ml Syr IV 06/25/23 23:59 PRN PRN Sodium Chloride 0 ml 05/27/23 06:00 Normal Saline 10 Ml Vial IJ 06/25/23 23:59 DIRECTED PRN Sterile Water 0 ml 05/27/23 06:00 Water,Injection,Sterile 10 Ml Vial IJ 06/25/23 23:59 DIRECTED PRN PFSH Active Problems Active Problems: Problem Status Onset Code Encounter for screening colonoscopy Z12.11 Cardiomyopathy I42.9 Obesity E66.9 BPH (benign prostatic hyperplasia) N40.0 Hyperlipidemia E78.5 Hypertension I10 Chronic kidney disease N18.9 Exertional dyspnea R06.09 Atrial fibrillation I48.91 Edema, peripheral R60.0 Systolic congestive heart failure I50.20 Diabetes mellitus with insulin therapy E11.9, Z79.4 Medical History Medical History Kidney transplant candidate Awaiting transplant Tobacco Smoking/Tobacco Use Status: Never Alcohol Alcohol Intake: current Alcohol intake frequency: holidays/special occasions only Substance Use Substance use: Never Substance use type: does not use Vital Signs and Lab Results Vital Signs Most Recent Vital Signs in EMR: Most Recent Vital Signs Temp Pulse Resp BP Pulse Ox 36.5 C 80 20 161/112 H 98 05/27/23 07:06 05/27/23 07:06 05/27/23 07:06 05/27/23 07:06 05/27/23 07:06 Point of Care Results Point of Care Results: Finger Stick Blood Glucose 190 05/27/23 07:18 Lab Results Blood Type / Crossmatch: No Data to Display Complete Blood Count: No Data to Display Complete Metabolic Panel: No Data to Display Liver Function Panel: No Data to Display Coagulation Panel: No Data to Display Cardiac Panel: No Data to Display Arterial Blood Gas: No Data to Display Venous Blood Gas: No Data to Display Pancreas Panel: No Data to Display Thyroid Panel: No Data to Display Infectious Disease: No Data to Display Blood Cultures: No Data to Display Toxicology Panel: No Data to Display Imaging and Studies Imaging and Studies Study information below may be from another EMR and interpreted by another provider. Please see original notes in EMR for more complete details. Stress Test Summary: 12/24/21: negative ischemia. Echocardiogram Summary: 05/24/23: elf 55%, normal valves Anesthesia Assessment and Plan Anesthesia History Personal History: No History of Anesthesia Complications Family History: No Family History of Anesthesia Complications Exercise Tolerance Exercise Tolerance: Metabolic Equivalents>4 Pertinent Negatives Pertinent Negatives: No Symptoms of GERD and No Major Pulmonary Symptoms or Complaints Cardiac & Pulmonary Exam Cardiac Exam: Normal S1/S2 Heart Sounds Pulmonary Exam: Clear Bilateral Breath Sounds Implantable Cardiac Device Does patient have a Pacemaker or an ICD?: No Airway Exam Known Difficult Airway: No Mallampati Class: 2 Mouth Opening: Normal (> 3cm) Thyromental Distance: Greater than 3 cm Neck Range of Motion: Full ROM Neck Circumference: Thick Teeth Condition: Normal Dentition ASA Classification ASA Score: ASA 3 Emergency Case?: No NPO Status NPO Status: NPO Clears >2 hours, Solids >8 hours Anesthesia Plan Resuscitation Status: Full Code Anesthesia Technique: General Anesthesia Airway Planned: Natural Airway Monitors Used: Standard Monitors
[2023-05-27 08:23] VITALS: BMI 35.6
--- NOTE | 2023-05-27 09:00 | BOWEL_PTH ---
PATIENT: Avery Penny LOC: [facility] U#:[id number] AGE/SX: 72/M ROOM: RE05/27/[address]: Brenden Back MD : 1950 BED: DIS: 05/27/2023 SPEC #: [id number] RECD: 05/27/23 12:50 STATUS: YULI REQ #: [id number] FREDI: 05/27/23 09:[address]: Brenden Back DEPT: Surgical Specimen RECD BY: Malia Frye ENTERED: 05/27/23 12:53 SP TYPE: Bowel OTHR DR: Priscilla Robert Tissues: 1 - BIOPSY BOWEL 2 - BIOPSY BOWEL 3 - BIOPSY BOWEL 4 - BIOPSY BOWEL Procedures: GROSS AND MICRO LEVEL 4 Comments: [id number]
[2023-05-27 09:26] VITALS: BP 106/76; PULSE 91; RESP 16; TEMP 36.3; O2SAT 97
--- NOTE | 2023-05-27 09:40 | W.ANESPOSTOP ---
Postoperative Evaluation Date, Time and Location Date Performed: 05/27/23 Time Performed: 09:40 Patient Location: Day Surgery Unit Vital Signs Most Recent Imported Vital Signs: Most Recent Vital Signs Temp Pulse Resp BP Pulse Ox 36.3 C L 91 H 16 106/76 97 05/27/23 09:26 05/27/23 09:26 05/27/23 09:26 05/27/23 09:26 05/27/23 09:26 Pain Score Most Recent Pain Score: Most Recent Pain Score Pain Level 0 05/27/23 09:26 Assessment Mental Status: Awake (Alert & Oriented to Patient Baseline) Airway and Respiratory Function: Patent airway with normal (patient baseline) respiratory exam Cardiovascular Function: Hemodynamically Stable Hydration Status: Adequately Hydrated Nausea & Vomiting: No Nausea or Vomiting Pain: Pt. Denies Any Pain Peripheral Nerve Block: Patient did not receive a nerve block
[2023-05-27 09:47] VITALS: BP 138/84; PULSE 103; RESP 17; TEMP 36.3; O2SAT 97
== END 2023-05-27 10:00 | disposition home or self-care (01) ==
LOC: SUR 06:42
PROVIDERS: PCP Family Medicine; Visit Provider Surgery
PROC: 0DJD8ZZ Inspection of Lower Intestinal Tract, Via Natural or Artificial Opening Endoscopic (ICD-10-PCS; CPT 45378; principal; 2023-05-27 08:15)
DX: Z12.11 Encounter for screening for malignant neoplasm of colon (principal); D12.2 Benign neoplasm of ascending colon; I48.91 Unspecified atrial fibrillation; I12.9 Hypertensive chronic kidney disease with stage 1 through stage 4 chronic kidney disease, or unspecified chronic kidney disease; N40.0 Benign prostatic hyperplasia without lower urinary tract symptoms; E78.5 Hyperlipidemia, unspecified; E11.22 Type 2 diabetes mellitus with diabetic chronic kidney disease; N18.9 Chronic kidney disease, unspecified; Z79.4 Long term (current) use of insulin; D12.3 Benign neoplasm of transverse colon; D12.4 Benign neoplasm of descending colon
CPT/HCPCS: 45385; 45380; 88305; J2704

== ENCOUNTER 2024-06-26 12:19 | Outpatient (REF) | payer MEDICARE, BC, SELFPAY ==
[2024-06-26 16:52] LABS: COMMENT (LAB VIEW ONLY) 58.02 mg/dL
[2024-06-26 16:53] LABS: Microalb ug/mg Crea 1126.7 ug/mg Cr
== END 2024-06-26 12:20 | disposition home or self-care (01) ==
LOC: NCHCN 12:19
PROVIDERS: PCP Family Medicine; Visit Provider Family Medicine
DX: E11.21 Type 2 diabetes mellitus with diabetic nephropathy (principal)
CPT/HCPCS: 82043; 82570